=== PATIENT | male | born 1940 | race Caucasian/White ===

== ENCOUNTER 2017-11-06 17:09 | Inpatient (IN) | payer OTHER ==
[2017-11-06] MEDS ORDERED: ACETAMINOPHEN INJECTION 100 ML IVPB ONE (17:48)
[2017-11-06] MEDS ORDERED: SODIUM CHLORIDE 1,000 ML IV STA (17:48)
[2017-11-06] MEDS ORDERED: ACETAMINOPHEN 1000 MG/100 ML VIAL (NON FORMULARY) IVPB ONE (18:04)
[2017-11-06 18:16] LABS: EOS % 0.2 % (0-4.5); HEMATOCRIT 42.5 % (35.4-49); HEMOGLOBIN 14.2 GM/dL (11.7-16.9); LYMPH % 2.2 % (8-40); MCH 31.7 pg (25.7-33.7); MCHC 33.4 g/dl (32.0-35.9); MONO % 7.6 % (3.8-10.2); PLATELET COUNT 397 K/MM3 (134-434); RBC 4.47 M/mm3 (4.00-5.60); RDW 14.6 % (11.9-15.9); WHITE BLOOD COUNT 19.1 K/mm3 (4.0-10.0)
[2017-11-06 18:23] LABS: VENOUS PC02 35.9 mmHg (38-52); VENOUS PH 7.45 (7.32-7.42); VENOUS PO2 48.2 mmHg (28-48)
[2017-11-06 18:28] LABS: INR 1.03 (0.82-1.09); PROTHROMBIN TIME (PATIENT) 11.6 SEC (9.7-13.0)
[2017-11-06 18:42] LABS: ALBUMIN 3.2 g/dl (3.4-5.0); ALK PHOS 799 U/L (45-117); ANION GAP 10 (8-16); BILIRUBIN,TOTAL 5.2 mg/dL (0.2-1.0); BLOOD UREA NITROGEN 22 mg/dL (7-18); CALCIUM 10.2 mg/dL (8.5-10.1); CHLORIDE 104 mmol/L (98-107); CO2 26 mmol/L (21-32); CREATININE 1.1 mg/dL (0.7-1.3); GLUCOSE,RANDOM 188 mg/dL (74-106); SGPT/ALT 148 U/L (12-78); SODIUM 140 mmol/L (136-145); TOT PROT 6.9 g/dl (6.4-8.2)
[2017-11-06 18:50] LABS: POTASSIUM 4.2 mmol/L (3.5-5.1); SGOT/AST 221 U/L (15-37)
[2017-11-06 19:00] VITALS: BMI 37.2
--- NOTE | 2017-11-06 19:10 | PDOC ---
History of Present Illness <Lynda Pedroza - Last Filed: 11/06/17 23:21> - History of Present Illness Initial Comments: 11/06/17 19:10 77 Yo M w a hx of T2DM is here with an altered mental status. He says he does not feel well but cannot give a history of what happened or how he got to the hospital. He originally said he was at [facility]. He says this morning he fell down but did not hit his head. He denies having a headache. Denies neck pain. He denies Chest pain, denies SOB or difficulty breathing. Denies having a recent cough. Denies dysuria, frequency, urgency. Was on hold with his retirement for 45 minutes and no-one answered the phone or was able to give a supplemental history on the patient. <Ehsan Campbell - Last Filed: 11/06/17 23:25> - General Chief Complaint: SIRS, Suspected/Possible Stated Complaint: FALL/FEVER Time Seen by Provider: 11/06/17 17:51 Past History <Lynda Pedroza - Last Filed: 11/06/17 23:21> - Past Medical History COPD: Yes Diabetes: Yes GI Disorders: Yes (gerd) HTN: Yes - Suicide/Smoking/Psychosocial Hx Smoking History: Never smoked Have you smoked in the past 12 months: No Information on smoking cessation initiated: No Hx Alcohol Use: No Drug/Substance Use Hx: No <Ehsan Campbell - Last Filed: 11/06/17 23:25> - Past Medical History Allergies/Adverse Reactions: Allergies Allergy/AdvReac Type Severity Reaction Status Date / Time No Known Allergies Allergy Verified 11/06/17 17:34 Home Medications: Ambulatory Orders Acetaminophen [Pain Relief] 650 mg PO PRN PRN 11/06/17 Aspirin [Ecotrin] 81 mg PO DAILY 11/06/17 Guaifenesin Dm [Robitussin Dm -] 10 ml PO Q6H PRN 11/06/17 Lisinopril [Prinivil] 10 mg PO DAILY 11/06/17 Magnesium Hydrox 2400MG/30Ml [Milk of Magnesia -] 30 ml PO PRN 11/06/17 Pantoprazole Sodium [Protonix] 40 mg PO DAILY 11/06/17 Sodium Phosphate/Na Biphos [Fleet Adult Rectal Enema -] 133 ml RC PRN 11/06/17 metFORMIN HCL [Metformin HCl] 500 mg PO BID 11/06/17 Review of Systems - Review of Systems Comments:: 11/06/17 19:21 Constitutional: Positive: Fever, chills, diaphoresis Absent: generalized weakness, malaise, loss of appetite HEENT: Absent: rhinorrhea, nasal congestion, throat pain, throat swelling, difficulty swallowing, mouth swelling, ear pain, eye pain, visual Changes CARDIOVASCULAR: Absent: chest pain, syncope, palpitations, irregular heart rate, lightheadedness , peripheral edema RESPIRATORY: Positive: Shortness of breath Absent: cough, dyspnea with exertion, orthopnea, wheezing, stridor, hemoptysis GASTROINTESTINAL: Positive: Abdominal pain Absent:abdominal distension, nausea, vomiting, diarrhea, constipation, melena, hematochezia GENITOURINARY: Absent: dysuria, frequency, urgency, hesitancy, hematuria, flank pain, genital pain MUSCULOSKELETAL: Absent: myalgia, arthralgia, joint swelling SKIN: Absent: rash, itching, pallor HEMATOLOGIC/IMMUNOLOGIC: Absent: easy bleeding, easy bruising, lymphadenopathy, frequent infections ENDOCRINE: Absent: unexplained weight gain, unexplained weight loss, heat intolerance, cold intolerance NEUROLOGIC: Absent: headache, focal weakness or paresthesias, dizziness, unsteady gait, seizure, mental status changes, bladder or bowel incontinence PSYCHIATRIC: Absent: anxiety, depression, suicidal or homicidal ideation, hallucinations. <Ehsan Campbell - Last Filed: 11/06/17 23:25> *Physical Exam - Vital Signs Last Vital Signs Temp Pulse Resp BP Pulse Ox 103.0 F H 115 H 22 93/52 96 11/06/17 17:45 11/06/17 18:20 11/06/17 17:45 11/06/17 18:20 11/06/17 18:20 <Lynda Pedroza - Last Filed: 11/06/17 23:21> - Vital Signs Last Vital Signs Temp Pulse Resp BP Pulse Ox 103.0 F H 115 H 22 93/52 96 11/06/17 17:45 11/06/17 18:20 11/06/17 17:45 11/06/17 18:20 11/06/17 18:20 - Physical Exam Comments: 11/06/17 19:24 GENERAL: Patient looks sick. His body color looks jaundice. He is awake but not alert and not oriented well. HEENT: The sclera look mildly icteric. Normocephalic, atraumatic. PERRLA, EOMI. There is conjunctival pallor. Mucous membranes are dry. Oropharynx is clear. NECK: Supple. No JVD. Carotid pulses 2+ and symmetric, without bruits. No thyromegaly. No lymphadenopathy. CARDIOVASCULAR: Tachycardic, normal s1/s2, No murmurs, rubs, or gallops. Distal pulses are 2+ and symmetric. PULMONARY: No evidence of respiratory distress. Lungs clear to auscultation bilaterally. No wheezing, rales or rhonchi. ABDOMINAL: Mildly tender in RUQ. Negative aparicio sign. There is no rebound or guarding and no peritoneal signs. MUSCULOSKELETAL No bony deformities or tenderness. No CVA tenderness. EXTREMITIES: No cyanosis. No clubbing. No edema. No calf tenderness. SKIN: The skin is jaundice. Warm and dry. delayed capillary refill. No rashes. NEUROLOGICAL: He is awake but not alert and not appropriately answering questions. Cranial nerves 2-12 intact. No deficits to light touch in face, upper extremities and lower extremities. No motor deficits in the in face, upper extremities and lower extremities. Normoreflexic in the upper and lower extremities. Normal speech. Toes are down-going bilaterally. <Ehsan Campbell - Last Filed: 11/06/17 23:25> ED Treatment Course - LABORATORY CBC & Chemistry Diagram: 11/06/17 18:00 11/06/17 18:00 - ADDITIONAL ORDERS Additional order review: Laboratory Results 11/06/17 11/06/17 11/06/17 20:25 20:25 18:33 PT with INR INR PTT (Actin FS) VBG pH POC VBG pCO2 POC VBG pO2 Mixed VBG HCO3 Sodium Potassium Chloride Carbon Dioxide Anion Gap BUN Creatinine Creat Clearance w eGFR POC Glucometer [phone] Random Glucose Lactic Acid 1.4 Calcium Total Bilirubin AST ALT Alkaline Phosphatase Troponin I Total Protein Albumin Blood Type O POSITIVE Antibody Screen Negative 11/06/17 11/06/17 11/06/17 18:29 18:00 18:00 PT with INR INR PTT (Actin FS) VBG pH POC VBG pCO2 POC VBG pO2 Mixed VBG HCO3 Sodium 140 Potassium 4.2 Chloride 104 Carbon Dioxide 26 Anion Gap 10 BUN 22 H Creatinine 1.1 Creat Clearance w eGFR > 60 POC Glucometer Random Glucose 188 H Lactic Acid 2.1 H Calcium 10.2 H Total Bilirubin 5.2 H AST 221 H ALT 148 H Alkaline Phosphatase 799 H Troponin I < 0.02 Total Protein 6.9 Albumin 3.2 L Blood Type Antibody Screen 11/06/17 11/06/17 18:00 18:00 PT with INR 11.60 INR 1.03 PTT (Actin FS) 31.0 VBG pH 7.45 H POC VBG pCO2 35.9 L POC VBG pO2 48.2 H Mixed VBG HCO3 24.4 Sodium Potassium Chloride Carbon Dioxide Anion Gap BUN Creatinine Creat Clearance w eGFR POC Glucometer Random Glucose Lactic Acid Calcium Total Bilirubin AST ALT Alkaline Phosphatase Troponin I Total Protein Albumin Blood Type Antibody Screen 11/06/17 11/06/17 18:33 18:00 RBC 4.47 MCV 95.0 MCHC 33.4 RDW 14.6 MPV 7.0 L Neutrophils % 89.0 H Lymphocytes % 2.2 L Monocytes % 7.6 Eosinophils % 0.2 Basophils % 1.0 POC Glucometer [phone] - Medications Given in the ED: ED Medications Discontinued Medications Generic Name Dose Route Start Last Admin Trade Name Freq PRN Reason Stop Dose Admin Acetaminophen 1,000 mg 11/06/17 18:04 11/06/17 18:10 Ofirmev Injection - IVPB 11/06/17 18:05 1,000 mg ONCE ONE Administration Sodium Chloride 1,000 mls @ 1,000 mls/hr 11/06/17 17:48 11/06/17 18:03 Normal Saline - IV 11/06/17 18:47 1,000 mls/hr ASDIR STA Administration Vancomycin HCl 1,500 mg/ 500 mls @ 250 mls/hr 11/06/17 19:36 11/06/17 20:51 Dextrose IVPB 11/06/17 21:35 250 mls/hr ONCE ONE Administration Protocol Piperacillin Sod/Tazobactam 100 mls @ 200 mls/hr 11/06/17 19:38 11/06/17 20: 31 Sod 4.5 gm/ Dextrose IVPB 11/06/17 20:07 200 mls/hr ONCE ONE Administration Protocol Sodium Chloride 1,000 ml 11/06/17 19:58 11/06/17 20:31 Normal Saline - IV 11/06/17 19:59 1,000 ml ONCE ONE Administration <Lynda Perdoza - Last Filed: 11/06/17 23:21> - LABORATORY CBC & Chemistry Diagram: 11/06/17 18:00 11/06/17 18:00 - ADDITIONAL ORDERS Additional order review: Laboratory Results 11/06/17 11/06/17 11/06/17 18:33 18:00 18:00 PT with INR INR PTT (Actin FS) VBG pH POC VBG pCO2 POC VBG pO2 Mixed VBG HCO3 Sodium 140 Potassium 4.2 Chloride 104 Carbon Dioxide 26 Anion Gap 10 BUN 22 H Creatinine 1.1 Creat Clearance w eGFR > 60 POC Glucometer [phone] Random Glucose 188 H Lactic Acid 2.1 H Calcium 10.2 H Total Bilirubin 5.2 H AST 221 H ALT 148 H Alkaline Phosphatase 799 H Total Protein 6.9 Albumin 3.2 L 11/06/17 11/06/17 18:00 18:00 PT with INR 11.60 INR 1.03 PTT (Actin FS) 31.0 VBG pH 7.45 H POC VBG pCO2 35.9 L POC VBG pO2 48.2 H Mixed VBG HCO3 24.4 Sodium Potassium Chloride Carbon Dioxide Anion Gap BUN Creatinine Creat Clearance w eGFR POC Glucometer Random Glucose Lactic Acid Calcium Total Bilirubin AST ALT Alkaline Phosphatase Total Protein Albumin 11/06/17 11/06/17 18:33 18:00 RBC 4.47 MCV 95.0 MCHC 33.4 RDW 14.6 MPV 7.0 L Neutrophils % 89.0 H Lymphocytes % 2.2 L Monocytes % 7.6 Eosinophils % 0.2 Basophils % 1.0 POC Glucometer [phone] - Medications Given in the ED: ED Medications Discontinued Medications Generic Name Dose Route Start Last Admin Trade Name Freq PRN Reason Stop Dose Admin Acetaminophen 1,000 mg 11/06/17 18:04 11/06/17 18:10 Ofirmev Injection - IVPB 11/06/17 18:05 1,000 mg ONCE ONE Administration Sodium Chloride 1,000 mls @ 1,000 mls/hr 11/06/17 17:48 11/06/17 18:03 Normal Saline - IV 11/06/17 18:47 1,000 mls/hr ASDIR STA Administration <Ehsan Campbell - Last Filed: 11/06/17 23:25> Medical Decision Making - Medical Decision Making 11/06/17 19:33 77 yo M w a hx of T2DM is here in an altered state of mind. He is not giving us a helpful history of why he is here. The patient looks very jaundice on appearance. He has worrisome vitals for sepsis. Temp: 103 HR: 130 RR: 22 BP: 93/52 O2: 92 Patient has hypotension, Jaundice, altered mental status, and tachycardia. No RUQ pain on exam. Patient has 4/5 criteria for Acute cholangitis. Alk phos; 799 Alt - 221 Ast - 148 Bilirubin - 5.2 Plan: RUQ us to assess for cholangitis. Gallbladder could not be visualized on RUQ US. Patient insists he never had his gallbladder taken out. Abdomen and pelvis CT scan was taken. Patient will be admitted. He does not want an ERCP or percutaneous drainage procedure performed. He wants to try only antibiotics. Patient is doing better than he was at admission after fluid and Abx. Patient will be admitted. 11/06/17 23:24 <Ehsan Campbell - Last Filed: 11/06/17 23:25> *DC/Admit/Observation/Transfer - Discharge Dispostion Decision to Admit order: Yes <Lynda Pedroza - Last Filed: 11/06/17 23:21> <Ehsan Campbell - Last Filed: 11/06/17 23:25> Diagnosis at time of Disposition: Cholangitis, obliterative, chronic - Discharge Dispostion Condition at time of disposition: Guarded
[2017-11-06] MEDS ORDERED: VANCOMYCIN 1,500 MG in DEXTROSE 5%-WATER - 500 ML IVPB ONE (19:36)
[2017-11-06] MEDS ORDERED: PIPERACILLIN/TAZOB 4.5 GM 4.5 GM in DEXTROSE 5%-WATER 100 ML IVPB ONE (19:38)
--- NOTE | 2017-11-06 19:49 | PDOC ---
Attending Attestation - ED Attending Attestation I have performed the following: I have examined & evaluated the patient, The case was reviewed & discussed with the resident, I agree w/resident's findings & plan - HPI HPI: 11/06/17 23:49 The patient is a 77 year old male brought in by EMS from [facility], with a significant past medical history of diabetes, who presents to the emergency department for evaluation of altered mental status s/p fall. He reports falling down this morning, but denies head trauma. He states he is unsure of how he got to the hospital. Pt is hypotensive and febrile on arrival. Unable to obtain past medical history secondary to pt status. No response from fdc. Pt reports abdominal pain with associated fever and diaphoresis. The patient denies chest pain, shortness of breath, headache, and dizziness. Denies chills, nausea, vomiting, any bowel/urinary symptoms. Allergies: NKDA Social History: No reported alcohol, cigarette, or drug use - Physicial Exam PE: GENERAL: (+)Obese. Afebrile. Awake, alert, and fully oriented, in no acute distress HEAD: No signs of trauma EYES: PERRLA, EOMI, sclera anicteric, conjunctiva clear ENT: Auricles normal inspection, hearing grossly normal, nares patent, oropharynx clear without exudates. Moist mucosa NECK: Normal ROM, supple, no lymphadenopathy, JVD, or masses LUNGS: Breath sounds equal, clear to auscultation bilaterally. No wheezes, and no crackles HEART: Regular rate and rhythm, normal S1 and S2, no murmurs, rubs or gallops ABDOMEN: (+)RUQ pain. Soft, nontender, normoactive bowel sounds. No guarding, no rebound. No masses EXTREMITIES: Normal range of motion, no edema. No clubbing or cyanosis. No cords, erythema, or tenderness NEUROLOGICAL: Cranial nerves II through XII grossly intact. Normal speech, normal gait SKIN: (+)Jaundiced. Warm, Dry, normal turgor, no rashes or lesions noted. <Emelina Steven - Last Filed: 11/06/17 23:49> - Resident Resident Name: Ehsan Campbell - Medical Decision Making 11/07/17 19:33 Pt comes with abdominal pain and fever. He is jaundiced from the MA; his LFTs are all elevated. Total bili is rising from the last time that he was here. Pt will be admitted to the telemetry unit. ICU team refusing the case, as pt is stable at this time. Pt will require GI eval for cholangitis. <Lynda Pedroza - Last Filed: 11/07/17 19:36> Attestations - Attestations Documentation prepared by Emelina Steven, acting as nuclear medicine medical director for Lynda Pedroza MD. <Emelina Steven - Last Filed: 11/06/17 23:49>
[2017-11-06] MEDS ORDERED: SODIUM CHLORIDE 0.9% 500 ML INFUS.BAG IV ONE (19:58)
[2017-11-06] MEDS ORDERED: PIPERACILLIN/TAZOB 4.5 GM 4.5 GM/100 ML BAG IVPB ONE (20:06)
--- NOTE | 2017-11-06 21:21 | CON.GI ---
Consult Consult Specialty:: GI: For Dr. Hewitt Referred by:: Dr. Eliana Jha Reason for Consultation:: Fever and abnormal LFTs - History of Present Illness Chief Complaint: "I fell" History of Present Illness: 77M admitted from [facility]. The transfer form from [facility] states "Fall (Pain ) fever 100.1" as the reason for transfer to [facility] ER. In ER he was noted to be hypotensive with BP 98/65 have a rectal temp of 103, WBC of 19K, AST: 221 ALT: 148 ALP: 799 TB: 5.2. PT/INR was normal. There are no previous LFTs for review. Mr. Jay states that he simply tripped and fell. He denies abdominal pain or prior history of liver disease. He states that he is given tylenol at [facility] for knee pain He denies alcohol use. He thinks that he may have been given antibiotics at the [facility] about 3 weeks ago "because he was running a fever". There has been no reported diarrhea. He is noted to have a DNR/DNI signed in the chart from 07/28. He has received 1 dose vanco / zosyn in ER and 1 liter of NS. He is getting a 2nd liter of NS. - History Source History Provided By: Patient, Medical Record Limitations to Obtaining History: Poor Historian - Past Medical History Cardio/Vascular: Yes: HTN, Hyperlipdemia Endocrine: Yes: Diabetes Mellitus - Past Surgical History Additional Surgical History: Denies - Alcohol/Substance Use Hx Alcohol Use: No - Smoking History Smoking history: Never smoked Have you smoked in the past 12 months: No - Social History Usual Living Arrangement: Skilled Nursing ADL: Support Services Place of : [facility] History of Recent Travel: No Home Medications - Allergies Allergies/Adverse Reactions: Allergies Allergy/AdvReac Type Severity Reaction Status Date / Time No Known Allergies Allergy Verified 11/06/17 17:34 - Home Medications Home Medications: Ambulatory Orders Acetaminophen [Pain Relief] 650 mg PO PRN PRN 11/06/17 Aspirin [Ecotrin] 81 mg PO DAILY 11/06/17 Guaifenesin Dm [Robitussin Dm -] 10 ml PO Q6H PRN 11/06/17 Lisinopril [Prinivil] 10 mg PO DAILY 11/06/17 Magnesium Hydrox 2400MG/30Ml [Milk of Magnesia -] 30 ml PO PRN 11/06/17 Pantoprazole Sodium [Protonix] 40 mg PO DAILY 11/06/17 Sodium Phosphate/Na Biphos [Fleet Adult Rectal Enema -] 133 ml RC PRN 11/06/17 metFORMIN HCL [Metformin HCl] 500 mg PO BID 11/06/17 Family Disease History - Family Disease History Other Family History: Non contribuatory Review of Systems - Review of Systems Constitutional: reports: Fever (reported low grade tamp at [facility] and 103F rectal at [facility] ER) Cardiovascular: denies: Chest Pain Respiratory: denies: SOB Gastrointestinal: denies: Abdominal Pain Physical Exam-GI Vital Signs: Vital Signs Temperature 97 oral (tylenol had been administered prior to eval) 11/06/172029 Pulse Rate 130 H 11/06/172029 Respiratory Rate 20 11/06/172029 Blood Pressure 104/76 11/06/172029 O2 Sat by Pulse Oximetry (%) 96 (RA) 11/06/172029 Constitutional: Yes: Calm Eyes: No: Sclera Icterus Cardiovascular: Yes: Tachycardia. No: Murmur Respiratory: Yes: Diminished (at bases b/l) Gastrointestinal Inspection: No: Distention ...Auscultate: Yes: Normoactive Bowel Sounds ...Palpate: Yes: Soft. No: Hepatomegaly, Splenomegaly, Tenderness ...Percussion: No: Tympanitic Edema: No (No LE edema) Neurological: Yes: Alert, Oriented (x 3) Labs: CBC, BMP 11/06/17 18:00 11/06/17 18:00 INR, PTT INR 1.03 (0.82-1.09) 11/06/17 18:00 Problem List - Problems (1) Abnormal liver function test Assessment/Plan: Given the cholestatic / obstructive pattern / associated fevers, leukocytosis and hypotension, cholangitis would need to be higher in differential I would advise: NPO Continued resuscitation / IV hydration ICU admission Check hepatitis serologies Abdominal US is pending: Prelim result per the ER resident is that the gallbladder could not be visualized (patient denies having cholecystectomy) however the CBD appeared mildly dilated. Will await official read Requested the ER perform CT scan of the abdomen and pelvis without contrast IV Abx: Vanco and Zosyn was given in ER. Zosyn should be continued, ID consult I discussed my concerns with Mr. Jay regarding cholangitis and explained that cholangitis is a serious and potentially life threatening infection of the bile duct. I explained that ERCP can be performed for therapeutic and diagnostic purposes. We discussed potential risks of the procedure like but not limited to bleeding, perforation, infection, sedation medication effects, pancreatitis all of which could be potentially life threatening. He stated that he did not want this procedure. We discussed a percutaneous drainage of his biliary tract through the liver and he refused that as well. He stated that "he would take his chances with antibiotics". I did discuss the case with Dr. Ld Saunders, biliary endoscopist who will be available to perform ERCP if the patient changes his mind. I asked the ER to contact Drs. Raissa Jha / Wendy Jc to make them aware of Mr. Jay's admission and decision regarding interventions. Code(s): R94.5 - ABNORMAL RESULTS OF LIVER FUNCTION STUDIES
--- NOTE | 2017-11-06 23:28 | PN ---
Progress Note (short form) - Note Progress Note: PULM/CCM Called to see pt to evaluate for ICU admission for possible ascending cholangitis/cholecystitis. Briefly pt has been largely wheel chair bound, living in [place] for the last 3-4 years. He has no children or other family, there is no surrogate decision maker listed. Pt is alert and oriented to person, place , time and current President (" the one with [place]"). He presented today after fall, found to have elevated bili and alk phos, significant transaminitis , and leukocytosis. He was febrile earlier and hypotensive but he responded to IVF, abx and tylenol. Abd US did not visulize GB and CBD was not significantly dilated. His case was discussed with GI, who felt pt may need ERCP or perc duong. Pt had previously made himself DNR/DNI on last admission. Amando Rowe and myself separately spoke with Mr Jay regarding medical interventions and his current condition. Pt expressed clearly, and consistency that he does not want to pursue aggressive interventions. He states he is willing to try antibiotics but is unwilling to undergo further procedures or interventions should he deteriorate. Pt was consistent and made these statements without coercion or provication. It is reasonable to admit pt to medical floor given the distinct possibility he may worsen, however as he does not wish to pursue life support interventions he should not be admitted to ICU. Should he worsen overnight efforts should be made to make him comfortable. Unfortunately there is no family to see or support him but his wishes are clear and consistent. Vital Signs Temp 103.0 F H 11/06/17 17:45 Pulse 115 H 11/06/17 18:20 Resp 22 11/06/17 17:45 BP 93/52 11/06/17 18:20 Pulse Ox 96 11/06/17 18:20 Intake & Output 11/05/17 11/06/17 11/06/17 23:59 11:59 23:59 Weight 121.109 kg Other: Height 5 ft 11 in Body Mass Index (BMI) 37.2 Weight Measurement Method Est/Stated by Patient CBC, BMP 11/06/17 18:00 11/06/17 18:00 Hepatic Panel Total Bilirubin 5.2 mg/dL (0.2-1.0) H 11/06/17 18:00 AST 221 U/L (15-37) H 11/06/17 18:00 ALT 148 U/L (12-78) H 11/06/17 18:00 Alkaline Phosphatase 799 U/L (45-117) H 11/06/17 18:00 Albumin 3.2 g/dl (3.4-5.0) L 11/06/17 18:00 PE: Gen: awake, alert, slightly jaundice, INAD HENT:NCAT, EOMI, PULM: clear anterior, diminished bases ABD: sub umbilical hernia, no Rocha on palp, obese but soft EXT: w/w/p, 2+ pulses Neuro: awake alert, non focal Jimmy Valera [facility] [id number]
--- NOTE | 2017-11-07 03:30 | HP ---
CHIEF COMPLAINT: Fall PCP: Dr. Jha HISTORY OF PRESENT ILLNESS: The patient is a 77 yo f w/ PMH DM, HTN who was brought to the ED from [facility] due to fall. Per the patient, he slid to the floor off of his bed. In the ED , he was found to have a rectal temperature of 103.5 and to he hypotensive to 98 /65. Patient denies head trauma, pain or any other complaints at the time of interview. ER course was notable for: (1) AST 221, ALT 148, ALP 799 (2) Lactic acid 2.1 -> 1.4 (3) WBC 19.1 (4) CT head negative, RUQ US showing no gallbladder and dilated CBD, CTAP with similar findings. PAST MEDICAL HISTORY: see hpi PAST SURGICAL HISTORY: none Social History: Smoking: denies Alcohol: denies Drugs: denies Family History: non-contributory Allergies No Known Allergies Allergy (Verified 11/06/17 17:34) HOME MEDICATIONS: Home Medications Medication Instructions Recorded Acetaminophen [Pain Relief] 650 mg PO PRN PRN 11/06/17 Aspirin [Ecotrin] 81 mg PO DAILY 11/06/17 Guaifenesin Dm [Robitussin Dm -] 10 ml PO Q6H PRN 11/06/17 Lisinopril [Prinivil] 10 mg PO DAILY 11/06/17 Magnesium Hydrox 2400MG/30Ml [Milk 30 ml PO PRN 11/06/17 of Magnesia -] Pantoprazole Sodium [Protonix] 40 mg PO DAILY 11/06/17 Sodium Phosphate/Na Biphos [Fleet 133 ml RC PRN 11/06/17 Adult Rectal Enema -] metFORMIN HCL [Metformin HCl] 500 mg PO BID 11/06/17 REVIEW OF SYSTEMS CONSTITUTIONAL: Absent: fever, chills, diaphoresis, generalized weakness, malaise, loss of appetite, weight change HEENT: Absent: rhinorrhea, nasal congestion, throat pain, throat swelling, difficulty swallowing, mouth swelling, ear pain, eye pain, visual changes CARDIOVASCULAR: Absent: chest pain, syncope, palpitations, irregular heart rate, lightheadedness , peripheral edema RESPIRATORY: Absent: cough, shortness of breath, dyspnea with exertion, orthopnea, wheezing, stridor, hemoptysis GASTROINTESTINAL: Absent: abdominal pain, abdominal distension, nausea, vomiting, diarrhea, constipation, melena, hematochezia GENITOURINARY: Absent: dysuria, frequency, urgency, hesitancy, hematuria, flank pain, genital pain MUSCULOSKELETAL: Absent: myalgia, arthralgia, joint swelling, back pain, neck pain SKIN: Absent: rash, itching, pallor HEMATOLOGIC/IMMUNOLOGIC: Absent: easy bleeding, easy bruising, lymphadenopathy, frequent infections ENDOCRINE: Absent: unexplained weight gain, unexplained weight loss, heat intolerance, cold intolerance NEUROLOGIC: Absent: headache, focal weakness or paresthesias, dizziness, unsteady gait, seizure, mental status changes, bladder or bowel incontinence PSYCHIATRIC: Absent: anxiety, depression, suicidal or homicidal ideation, hallucinations. PHYSICAL EXAMINATION Vital Signs - 24 hr 11/06/17 11/06/17 11/07/17 17:45 18:20 01:13 Temperature 103.0 F H 98.2 F Pulse Rate 130 H Pulse Rate [ 115 H 99 H Apical] Respiratory 22 19 Rate Blood Pressure 98/65 Blood Pressure 93/52 110/76 [Left Arm] O2 Sat by Pulse 92 L 96 Oximetry (%) GENERAL: Awake, alert, and fully oriented, in no acute distress. Patient is noted to have jaundice. HEAD: Normal with no signs of trauma. EYES: Pupils equal, round and reactive to light, extraocular movements intact, sclera anicteric, conjunctiva clear. No lid lag. EARS, NOSE, THROAT: oropharynx clear without exudates. Moist mucous membranes. NECK: Normal range of motion, supple without lymphadenopathy, JVD, or masses. LUNGS: Breath sounds equal, clear to auscultation bilaterally. No wheezes, and no crackles. No accessory muscle use. HEART: Regular rate and rhythm, normal S1 and S2 without murmur, rub or gallop. ABDOMEN: Soft, not distended, normoactive bowel sounds, no guarding, no rebound , no masses. There is mild tenderness to palpation in the RUQ LOWER EXTREMITIES: 2+ pulses, warm, well-perfused. No calf tenderness. 1+ peripheral edema. NEUROLOGICAL: Cranial nerves II-X intact. Normal speech. PSYCHIATRIC: Cooperative. Good eye contact. Appropriate mood and affect. SKIN: Warm, excessively dry, normal turgor, no rashes or lesions noted, normal capillary refill. The skin is jaundiced and there are excoriations along both legs and arms. Laboratory Results - last 24 hr 11/06/17 11/06/17 11/06/17 18:00 18:00 18:00 WBC 19.1 H RBC 4.47 Hgb 14.2 Hct 42.5 MCV 95.0 MCH 31.7 MCHC 33.4 RDW 14.6 Plt Count 397 MPV 7.0 L Absolute Neuts (auto) 17.0 Neutrophils % 89.0 H Lymphocytes % 2.2 L Monocytes % 7.6 Eosinophils % 0.2 Basophils % 1.0 Nucleated RBC % 0 PT with INR 11.60 INR 1.03 PTT (Actin FS) 31.0 VBG pH 7.45 H POC VBG pCO2 35.9 L POC VBG pO2 48.2 H Mixed VBG HCO3 24.4 Sodium Potassium Chloride Carbon Dioxide Anion Gap BUN Creatinine Creat Clearance w eGFR POC Glucometer Random Glucose Lactic Acid Calcium Total Bilirubin AST ALT Alkaline Phosphatase Troponin I Total Protein Albumin Blood Type Antibody Screen 11/06/17 11/06/17 11/06/17 18:00 18:00 18:29 WBC RBC Hgb Hct MCV MCH MCHC RDW Plt Count MPV Absolute Neuts (auto) Neutrophils % Lymphocytes % Monocytes % Eosinophils % Basophils % Nucleated RBC % PT with INR INR PTT (Actin FS) VBG pH POC VBG pCO2 POC VBG pO2 Mixed VBG HCO3 Sodium 140 Potassium 4.2 Chloride 104 Carbon Dioxide 26 Anion Gap 10 BUN 22 H Creatinine 1.1 Creat Clearance w eGFR > 60 POC Glucometer Random Glucose 188 H Lactic Acid 2.1 H Calcium 10.2 H Total Bilirubin 5.2 H AST 221 H ALT 148 H Alkaline Phosphatase 799 H Troponin I < 0.02 Total Protein 6.9 Albumin 3.2 L Blood Type Antibody Screen 11/06/17 11/06/17 11/06/17 18:33 20:25 20:25 WBC RBC Hgb Hct MCV MCH MCHC RDW Plt Count MPV Absolute Neuts (auto) Neutrophils % Lymphocytes % Monocytes % Eosinophils % Basophils % Nucleated RBC % PT with INR INR PTT (Actin FS) VBG pH POC VBG pCO2 POC VBG pO2 Mixed VBG HCO3 Sodium Potassium Chloride Carbon Dioxide Anion Gap BUN Creatinine Creat Clearance w eGFR POC Glucometer [phone] Random Glucose Lactic Acid 1.4 Calcium Total Bilirubin AST ALT Alkaline Phosphatase Troponin I Total Protein Albumin Blood Type O POSITIVE Antibody Screen Negative ASSESSMENT/PLAN: The patient is a 77 yo m w/ PMH DM, HTN who was brought [facility] the ED from [facility] s/p fall found to meet criteria for severe sepsis 2/2 suspected cholangitis #Severe sepsis w/ elevated LFTs and Jaundice concerning for cholangitis -Patient found to have charcot triad w/ 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 Patient electing to decline invasive treatment at this time and do trial of ABX -ICU MEDICAL ESTHETICIAN called to assess patient for the unit. Given patient's clinical stability and DNR/DNI status, he would be better suited for floors. -Patient A&O x3 at the time of interview and deemed capable of making his own decisions. -Hepatic panel pending -pain control w/ toradol; concern for sphincteral constriction with opioids which may worsen condition -NS @ 50 #FEN -NS @ 50 -monitor lytes -DM diet #Prophylaxis -Heparin SQ 5K units TID #Dispo -admit tele -medications verified w/ NH documentation Visit type - Emergency Visit Emergency Visit: Yes ED Registration Date: 11/06/17 Care time: The patient presented to the Emergency Department on the above date and was hospitalized for further evaluation of their emergent condition. - New Patient This patient is new to me today: Yes Date on this admission: 11/07/17 - Critical Care Critical Care patient: No Hospitalist Screening - Colonoscopy Questionnaire Colonoscopy Questionnaire: Colonoscopy Questionnaire - Patient: 50 - 75 years old and never had a screening colonoscopy: Unknown History of colon or rectal polyps, or CA: Unknown History of IBD, Crohn's disease or UC: Unknown History of abdominal radiation therapy as a child: Unknown - Relative: 1 with colon or rectal CA, or polyps at age 60 or younger: Unknown Colon or rectal CA diagnosed at age 45 or younger: Unknown Multiple relatives with colon or rectal CA: Unknown - Outcome: Screening Result: Negative Screen
[2017-11-07] MEDS ORDERED: guaiFENesin/D-METHORPHAN HB 10 ML UNIT-DOSE CUPS PO PRN (03:44)
[2017-11-07] MEDS ORDERED: KETOROLAC TROMETHAMINE 15 MG/ML VIAL IVPUSH PRN (03:44)
[2017-11-07] MEDS ORDERED: SODIUM PHOSPHATE/NA BIPHOS 133 ML ENEMA RC PRN (03:45)
[2017-11-07] MEDS ORDERED: SODIUM CHLORIDE 1,000 ML IV SCH (03:45)
[2017-11-07] MEDS ORDERED: PIPERACILLIN/TAZOB 3.375 GM 3.375 GM/50 ML BAG IVPB ONE (04:01)
[2017-11-07] MEDS: PIPERACILLIN/TAZOB 3.375 GM 3.375 GM in DEXTROSE 5%-WATER - 50 ML IVPB SCH (04:12)
[2017-11-07 04:26] LABS: URINE APPEARANCE SLCLOUDY; URINE COLOR AMBER; URINE GLUCOSE (UA) NEGATIVE (NEGATIVE); URINE KETONE NEGATIVE (NEGATIVE); URINE NITRITE NEGATIVE (NEGATIVE); URINE PROTEIN NEGATIVE (NEGATIVE); URINE UROBILINOGEN 4.0 E.U/dl mg/dL (0.2-1.0)
[2017-11-07] MEDS ORDERED: PIPERACILLIN/TAZOB 3.375 GM 3.375 GM in DEXTROSE 5%-WATER - 50 ML IVPB SCH ×2 (04:30→09:00)
[2017-11-07 04:40] LABS: URINE LEUK ESTERASE 2+ (NEGATIVE)
[2017-11-07 04:42] LABS: EPI CELLS RARE /HPF (FEW); URINE MUCUS RARE
--- NOTE | 2017-11-07 05:31 | PN ---
Teaching Attending Note Name of Resident: Mitch Ryder ATTENDING PHYSICIAN STATEMENT I saw and evaluated the patient. Chart, data, imaging reviewed. I reviewed the resident's note and discussed the case with the resident. I agree with the resident's findings and plan as documented. SUBJECTIVE: 77 man admitted from [facility] because he tripped and fell and was also noted to have a fever. He was noted to have markedly elevated Tbili ad transmintis as well as tachycardia and high fever of 103F in ER. U/S showed CBD dilatation of 8.5mm. Patient received vancomycin and zosyn in ER. He state that he does not want any invasive procedures performed. He wants to be DNR/DNI. OBJECTIVE: Last Vital Signs Temp Pulse Resp BP Pulse Ox 98.2 F 99 H 19 110/76 96 11/07/17 01:13 11/07/17 01:13 11/07/17 01:13 11/07/17 01:13 11/06/17 18:20 General -aaox3l, morbidly obese heent-at, nc, moist oral mucosa neck supple cv-s1+s2+rrr chest cta b/l abdomen obese, bs decreased, soft, no tenderness on palpation ext- no pedal edema Abnormal Lab Results 11/06/17 11/06/17 11/06/17 18:00 18:00 18:00 WBC 19.1 H MPV 7.0 L Neutrophils % 89.0 H Lymphocytes % 2.2 L VBG pH 7.45 H POC VBG pCO2 35.9 L POC VBG pO2 48.2 H BUN 22 H Random Glucose 188 H Lactic Acid Calcium 10.2 H Total Bilirubin 5.2 H AST 221 H ALT 148 H Alkaline Phosphatase 799 H Albumin 3.2 L Urine Blood Ur Leukocyte Esterase 11/06/17 11/07/17 18:00 04:21 WBC MPV Neutrophils % Lymphocytes % VBG pH POC VBG pCO2 POC VBG pO2 BUN Random Glucose Lactic Acid 2.1 H Calcium Total Bilirubin AST ALT Alkaline Phosphatase Albumin Urine Blood 1+ H Ur Leukocyte Esterase 2+ H head ct -neg for acute bleed, fracture CT of abdomen/pelvis reviewed U/S of abdomen reviewed ASSESSMENT AND PLAN: Severe Sepsis secondary to ascending cholangitis with dilatation of common bile duct which suggests that as possible source of infection. Pt already seen by GI however he does not want ERCP. He does agree to IV antibiotics -admit to med/surg -c/w zosyn 3.375g iv q6hrs -ID evaluation -no need for vancomycin at this time -GI f/u -blood cultures x2 -IV fluid hydration -repeat lactate as was mildly elevated -DNR/DNI and no invasive procedures as per patient's wishes -please see resident note for details -heparin sc for dvt ppx
[2017-11-07] MEDS ORDERED: HEPARIN NA (PORCINE) 5,000 UNITS/ML 1ML VIAL ONE (06:33)
[2017-11-07] MEDS: INSULIN SLIDING SCALE (NOVOLOG) 1 VIAL SQ SCH ×4 (06:51→22:27)
[2017-11-07] MEDS: HEPARIN NA (PORCINE) 5,000 UNITS/ML 1ML VIAL SQ SCH ×3 (06:51→21:19)
[2017-11-07 07:15] LABS: BASO % 0.3 % (0-2.0); EOS % 0.5 % (0-4.5); HEMATOCRIT 38.5 % (35.4-49); HEMOGLOBIN 13.1 GM/dL (11.7-16.9); LYMPH % 12.7 % (8-40); MCH 32.5 pg (25.7-33.7); MCHC 34.1 g/dl (32.0-35.9); MEAN CELL VOLUME 95.2 fl (80-96); MEAN PLT VOLUME 6.7 fl (7.5-11.1); NEUT % 77.5 % (42.8-82.8); PLATELET COUNT 348 K/MM3 (134-434); RBC 4.04 M/mm3 (4.00-5.60); RDW 15.1 % (11.9-15.9); WHITE BLOOD COUNT 15.6 K/mm3 (4.0-10.0)
[2017-11-07 07:37] LABS: ANION GAP 10 (8-16); BILIRUBIN,DIRECT 4.8 mg/dL (0.0-0.2); BILIRUBIN,TOTAL 6.1 mg/dL (0.2-1.0); BLOOD UREA NITROGEN 17 mg/dL (7-18); CALCIUM 9.9 mg/dL (8.5-10.1); CHLORIDE 106 mmol/L (98-107); CO2 26 mmol/L (21-32); GLUCOSE,RANDOM 131 mg/dL (74-106); POTASSIUM 4.1 mmol/L (3.5-5.1); SGOT/AST 181 U/L (15-37); SGPT/ALT 139 U/L (12-78); SODIUM 142 mmol/L (136-145); TOT PROT 6.5 g/dl (6.4-8.2)
[2017-11-07 07:40] LABS: ALK PHOS 656 U/L (45-117)
[2017-11-07] MEDS ORDERED: PIPERACILLIN/TAZOBACTAM 3.375 GM VIAL IVPB ONE (09:14)
[2017-11-07] MEDS ORDERED: DEXTROSE 5%-WATER - 50 ML IVPB ONE (09:14)
--- NOTE | 2017-11-07 10:00 | PN ---
Progress Note (short form) - Note Progress Note: ID consult dictated imp/reccd 77 year old man PMH of copd, DM sent to ED yesterday s/p fall with low grade fever found to have abnl lfts, possible cbd dilatiation on ultrasound , fever 103, leukocytosis seen by GI in the ER patient refused ERCP antibiotics started for possible cholangitis this am denies abdominal pain denies vomiting or nausea wants to return to the NH fever/leukocytosis/abnl lfts c/w cholangitis refusing ERCP- would continue zosyn and f/u cultures Problem List - Problems (1) Cholangitis Code(s): K83.0 - CHOLANGITIS (2) Abnormal liver function test Code(s): R94.5 - ABNORMAL RESULTS OF LIVER FUNCTION STUDIES
[2017-11-07] MEDS: LISINOPRIL 10 MG TABLET (FP) PO SCH (10:15)
[2017-11-07] MEDS: PANTOPRAZOLE 40 MG TABLET (FP) PO SCH (10:16)
--- NOTE | 2017-11-07 10:54 | CONS ---
DATE OF CONSULTATION: DATE OF DICTATION: 11/07/2017 REQUESTED BY: Dr. Cruz This is a 77-year-old man. He is a resident of the [facility], where he says he has been for the last 3-1/2 years. He presented to the emergency room yesterday. He apparently had had a fall and a low-grade fever at the [facility]. He was noted to have a temperature of 103 and to be hypotensive in the emergency room with a white count of 19,000 and abnormal LFTs with a bilirubin as high as 5.2. He was seen in the ER by GI. He had an ultrasound done that showed common bile duct which may be slightly dilated. He was offered ERCP in the ER, which he refused, and he was resuscitated with fluids and IV antibiotics. He received vancomycin and Zosyn and I am asked to see him for further evaluation. He is currently awake and alert. He complains of low back pain, which he states is chronic. He denies nausea, he denies vomiting, he denies abdominal pain, he denies alcohol use. He has been at the [facility] for 3-1/2 years; it is unclear why. He is a poor historian. PAST MEDICAL HISTORY: Notable for COPD. This is per the [facility] papers. He has a history of hypertension, GERD, type 2 diabetes. He has a DNR/DNI. He has no known drug allergies. MEDICATIONS AT THE [facility]: Pantoprazole; lisinopril; metformin; aspirin; and Tylenol p.r.n. He denies any surgical history. SOCIAL HISTORY: There is no history of any cigarette or substance use. REVIEW OF SYSTEMS: Notable for the chronic back pain. He denies any fevers or chills. Per the [facility] chart, it appears that he has had weight loss, which he currently denies. PHYSICAL EXAMINATION: Vital Signs: His temperature now is 99.8, temperature maximum was 103 on admission, blood pressure is 124/64, pulse is 94, respiratory rate is 18. He weighs 121 kg. HEENT: He is normocephalic. His eyes are mildly icteric. Neck: Supple. Heart: Regular rate and rhythm. Lungs: Clear to auscultation. Abdomen: He insists on laying his right side due to his back pain; hence, abdominal examination is limited, but grossly, he has no abdominal pain. He has a very large abdomen and it is impossible to palpate any organs. Extremities: Without edema. LABORATORIES: Admission white count was 19.1; this morning, is 15.6. INR is 1. BUN and creatinine are normal. Bilirubin is 6 with AST 181, ALT of 139, and alkaline phosphatase of 565. Urinalysis is 2+ leukocyte esterase with 160 white cells. Hepatitis serology is pending and cultures are pending. SUMMARY: This is a 77-year-old male with presumptive cholangitis, who is refusing any interventions. Would continue him on piperacillin, tazobactam, as ordered. Would follow up LFTs and follow up cultures. Hopefully he will reconsider and permit further testing. RINA LOCO M.D. [id number]
--- NOTE | 2017-11-07 11:03 | PN ---
Progress Note, Physician Chief Complaint: denies any pain, he refuses any intervention, I spoke with title insurance examiner - Current Medication List Current Medications: Active Medications Guaifenesin (Robitussin Dm -) 10 ml PO Q6H PRN PRN Reason: COUGH Heparin Sodium (Porcine) (Heparin -) 5,000 unit SQ TID [facility] Last Admin: 11/07/17 06:51 Dose: 5,000 unit Sodium Chloride (Normal Saline -) 1,000 mls @ 50 mls/hr IV ASDIR MICHAEL Stop: 11/07/17 23:44 Last Admin: 11/07/17 04:11 Dose: 50 mls/hr Piperacillin Sod/Tazobactam (Sod 4.5 gm/ Dextrose) 100 mls @ 200 mls/hr IVPB Q8H-IV MICHAEL; Protocol Insulin Aspart (Novolog Vial Sliding Scale -) 1 vial SQ ACHS [facility]; Protocol Last Admin: 11/07/17 06:51 Dose: Not Given Ketorolac Tromethamine (Toradol Injection -) 15 mg IVPUSH Q6H PRN PRN Reason: PAIN LEVEL 6-10 Stop: 11/12/17 03:43 Lisinopril (Prinivil) 10 mg PO DAILY [facility] Last Admin: 11/07/17 10:15 Dose: 10 mg Pantoprazole Sodium (Protonix -) 40 mg PO DAILY [facility] Last Admin: 11/07/17 10:16 Dose: 40 mg Sodium Phosphate (Fleet Adult Rectal Enema -) 133 ml RC DAILY PRN PRN Reason: CONSTIPATION - Objective Vital Signs: Vital Signs Temperature 99.8 F H 11/07/17 08:47 Pulse Rate 94 H 11/07/17 08:47 Respiratory Rate 18 11/07/17 08:47 Blood Pressure 124/64 11/07/17 08:47 O2 Sat by Pulse Oximetry (%) 98 11/07/17 08:47 Constitutional: Yes: No Distress, Calm Eyes: Yes: Sclera Icterus Cardiovascular: Yes: Regular Rate and Rhythm Respiratory: Yes: CTA Bilaterally Gastrointestinal: Yes: Normal Bowel Sounds, Soft, Abdomen, Obese, Tenderness ( right upper quadrant) Edema: No Labs: CBC, BMP 11/07/17 06:42 11/07/17 06:00 INR, PTT INR 1.03 (0.82-1.09) 07/28/18 18:00 Problem List - Problems (1) Abnormal liver function test Code(s): R94.5 - ABNORMAL RESULTS OF LIVER FUNCTION STUDIES (2) Cholangitis Code(s): K83.0 - CHOLANGITIS (3) Diabetes 1.5, 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 Clear liquid diet
--- NOTE | 2017-11-07 11:17 | PN ---
GI Progress Note Subjective: No acute events Patient awake, NAD - Objective Vital Signs: Vital Signs Temperature 99.8 F H 11/07/17 08:47 Pulse Rate 94 H 11/07/17 08:47 Respiratory Rate 18 11/07/17 08:47 Blood Pressure 124/64 11/07/17 08:47 O2 Sat by Pulse Oximetry (%) 98 11/07/17 08:47 Constitutional: Calm Eyes: No: Sclera Icterus Cardiovascular: Yes: Regular Rate and Rhythm Respiratory: Yes: CTA Bilaterally Gastrointestinal Inspection: Yes: Hernia (periumbilical, non-tender). No: Distention ...Auscultate: Yes: Normoactive Bowel Sounds ...Palpate: No: Tenderness ...Percussion: No: Tympanitic Edema: No (No LE edema) Neurological: Yes: Alert Labs: CBC, BMP 11/07/17 06:42 11/07/17 06:00 INR, PTT INR 1.03 (0.82-1.09) 11/06/17 18:00 Hepatic Panel Total Bilirubin 6.1 mg/dL (0.2-1.0) H 11/07/17 06:00 Direct Bilirubin 4.8 mg/dL (0.0-0.2) H 11/07/17 06:00 AST 181 U/L (15-37) H 11/07/17 06:00 ALT 139 U/L (12-78) H 11/07/17 06:00 Alkaline Phosphatase 656 U/L (45-117) H D 11/07/17 06:00 Albumin 3.0 g/dl (3.4-5.0) L 11/07/17 06:00 - ....Imaging Cat Scan: Other (Report Pending) Ultrasound: Report Reviewed (Abd US: 9.5mm CBD, GB not vsualized) Problem List - Problems (1) Abnormal liver function test Assessment/Plan: Suspected cholangitis: I again discussed the possibility of ERCP with Mr. Jay. He explained that " his feeling regarding that still stands". He wants no interventions. I discussed Mr. Jay's wishes with Dr. Hosea Garces for IV Abx Goals of care will need to be clarified Code(s): R94.5 - ABNORMAL RESULTS OF LIVER FUNCTION STUDIES
[2017-11-07] MEDS ORDERED: PIPERACILLIN/TAZOBACTAM 4.5 GM VIAL IVPB ONE (16:45)
[2017-11-07] MEDS ORDERED: DEXTROSE 5%-WATER 100 ML IVPB ONE (16:45)
[2017-11-07] MEDS: PIPERACILLIN/TAZOB 4.5 GM 4.5 GM in DEXTROSE 5%-WATER 100 ML IVPB SCH (17:07)
[2017-11-08] MEDS ORDERED: PIPERACILLIN/TAZOBACTAM 4.5 GM VIAL IVPB ONE ×2 (01:50→17:28)
[2017-11-08] MEDS ORDERED: DEXTROSE 5%-WATER 100 ML IVPB ONE ×2 (01:51→17:28)
[2017-11-08] MEDS: PIPERACILLIN/TAZOB 4.5 GM 4.5 GM in DEXTROSE 5%-WATER 100 ML IVPB SCH ×3 (02:00→18:01)
[2017-11-08] MEDS: INSULIN SLIDING SCALE (NOVOLOG) 1 VIAL SQ SCH ×5 (06:11→21:55)
[2017-11-08] MEDS: HEPARIN NA (PORCINE) 5,000 UNITS/ML 1ML VIAL SQ SCH ×3 (06:19→21:54)
[2017-11-08] MEDS: LISINOPRIL 10 MG TABLET (FP) PO SCH (09:00)
[2017-11-08] MEDS: PANTOPRAZOLE 40 MG TABLET (FP) PO SCH (09:00)
--- NOTE | 2017-11-08 10:28 | EKG ---
Test Reason : Blood Pressure : / mmHG Vent. Rate : 128 BPM Atrial Rate : 128 BPM P-R Int : 152 ms QRS Dur : 086 ms QT Int : 298 ms P-R-T Axes : 000 -11 039 degrees QTc Int : 435 ms SINUS TACHYCARDIA OTHERWISE NORMAL ECG NO PREVIOUS ECGS AVAILABLE Confirmed by ANTONIO VIZCARRA MD ([id number]) on 11/08/2017 10:27:47 AM Referred By: Confirmed By:ANTONIO VIZCARRA MD
[2017-11-08 10:32] LABS: BASO % 1.5 % (0-2.0); EOS % 3.2 % (0-4.5); HEMATOCRIT 35.9 % (35.4-49); HEMOGLOBIN 12.1 GM/dL (11.7-16.9); LYMPH % 15.1 % (8-40); MCH 32.1 pg (25.7-33.7); MCHC 33.8 g/dl (32.0-35.9); MEAN PLT VOLUME 6.8 fl (7.5-11.1); NEUT % 69.2 % (42.8-82.8); PLATELET COUNT 332 K/MM3 (134-434); RBC 3.77 M/mm3 (4.00-5.60); RDW 14.9 % (11.9-15.9); WHITE BLOOD COUNT 8.3 K/mm3 (4.0-10.0)
[2017-11-08 10:47] LABS: ALBUMIN 2.7 g/dl (3.4-5.0); ANION GAP 4 (8-16); BLOOD UREA NITROGEN 10 mg/dL (7-18); CALCIUM 9.5 mg/dL (8.5-10.1); CHLORIDE 105 mmol/L (98-107); CO2 31 mmol/L (21-32); GLUCOSE,RANDOM 147 mg/dL (74-106); POTASSIUM 4.3 mmol/L (3.5-5.1); SODIUM 140 mmol/L (136-145)
[2017-11-08 10:52] LABS: ALK PHOS 498 U/L (45-117); BILIRUBIN,DIRECT 4.4 mg/dL (0.0-0.2); BILIRUBIN,TOTAL 5.1 mg/dL (0.2-1.0); CREATININE 0.9 mg/dL (0.7-1.3); SGOT/AST 121 U/L (15-37); SGPT/ALT 105 U/L (12-78); TOT PROT 5.9 g/dl (6.4-8.2)
--- NOTE | 2017-11-08 11:58 | PN ---
Progress Note (short form) - Note Progress Note: pt seen/ examined chart reviewed comfortable refuses any intervention Discussed with Dr. Saunders also. denies pain Lfts improving. Vital Signs Temp 98.3 F 11/08/17 09:00 Pulse 88 11/08/17 09:00 Resp 20 11/08/17 09:00 BP 159/79 11/08/17 09:00 Pulse Ox 98 11/08/17 09:00 Intake & Output 11/07/17 11/07/17 11/08/17 11:59 23:59 11:59 Intake Total 240 100 Output Total 1600 600 Balance -1360 -500 Weight 267 lb Intake: IVPB 100 Oral 240 Output: Urine 1600 600 Void 1600 600 Other: Voiding Method Urinal Toilet Toilet Bowel Movement No Height 5 ft 11 in Body Mass Index (BMI) 37.2 Weight Measurement Method Stated by Patient Active Medications Guaifenesin (Robitussin Dm -) 10 ml PO Q6H PRN PRN Reason: COUGH Heparin Sodium (Porcine) (Heparin -) 5,000 unit SQ TID [facility] Last Admin: 11/08/17 06:19 Dose: 5,000 unit Piperacillin Sod/Tazobactam (Sod 4.5 gm/ Dextrose) 100 mls @ 200 mls/hr IVPB Q8H-IV MICAHEL; Protocol Last Admin: 11/08/17 09:00 Dose: 200 mls/hr Insulin Aspart (Novolog Vial Sliding Scale -) 1 vial SQ ACHS [facility]; Protocol Last Admin: 11/08/17 11:27 Dose: Not Given Ketorolac Tromethamine (Toradol Injection -) 15 mg IVPUSH Q6H PRN PRN Reason: PAIN LEVEL 6-10 Stop: 11/12/17 03:43 Lisinopril (Prinivil) 10 mg PO DAILY [facility] Last Admin: 11/08/17 09:00 Dose: 10 mg Pantoprazole Sodium (Protonix -) 40 mg PO DAILY [facility] Last Admin: 11/08/17 09:00 Dose: 40 mg Sodium Phosphate (Fleet Adult Rectal Enema -) 133 ml RC DAILY PRN PRN Reason: CONSTIPATION CBC, BMP 11/08/17 10:16 11/08/17 10:16 Microbiology 11/07/17 04:21 Urine Culture - Final Urine - Urine Clean Catch Contaminated: Please Repeat 11/06/17 18:00 Blood Culture - Preliminary Blood - Peripheral Venous Lactose Fermenting Neg Bacilli 11/06/17 18:00 Blood Culture - Preliminary Blood - Peripheral Venous NO GROWTH OBTAINED AFTER 24 HOURS, INCUBATION TO CONTINUE FOR 4 DAYS. Physical Exam. Constitutional: Yes: No Distress, Calm. 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
--- NOTE | 2017-11-08 12:41 | PN ---
GI Progress Note Subjective: GI NOte: Dr. Rowe's coverage is greatly appreciated. Kane denies abdominal pain or chills. He is icteric and itchy but LFTs are slightly improved. I discussed the potential etiologies of his jaundice including stones vs a pancreatic or biliary tract cancer and the role for ERCP in extracting stones or placing a palliative stent. He expressed his concerns about the risks of the procedure including pancreatitis which I acknowledged. I have told him that I will discuss the situation further with him once the MRCP is completed. He admits to having a diminished appetite and a drop in weight from over 300lbs to 260. I discussed the case with Dr Eliana Jha - Objective Vital Signs: Vital Signs Temperature 98.3 F 11/08/17 09:00 Pulse Rate 88 11/08/17 09:00 Respiratory Rate 20 11/08/17 09:00 Blood Pressure 159/79 11/08/17 09:00 O2 Sat by Pulse Oximetry (%) 98 11/08/17 09:00 Laboratory Tests 11/06/17 11/06/17 11/07/17 18:00 18:00 06:00 WBC 19.1 H Total Bilirubin 5.2 H 6.1 H Direct Bilirubin AST ALT Alkaline Phosphatase 799 H 656 H D 11/07/17 11/08/17 11/08/17 06:42 10:16 10:16 WBC 15.6 H 8.3 Total Bilirubin 5.1 H Direct Bilirubin 4.4 H AST 121 H D ALT 105 H D Alkaline Phosphatase 498 H D Constitutional: Calm Eyes: Yes: Sclera Icterus ...Auscultate: Yes: Normoactive Bowel Sounds ...Palpate: Yes: Soft, Other (nontender) Labs: CBC, BMP 11/08/17 10:16 11/08/17 10:16 INR, PTT INR 1.03 (0.82-1.09) 11/06/17 18:00 Problem List - Problems (1) Obstructive jaundice Assessment/Plan: Suspect malignant obstruction given the lack of pain and weight loss although the cholangitis favors stones. Await MRCP. Continue antibiotics. 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
--- NOTE | 2017-11-08 16:06 | PN ---
Progress Note (short form) - Note Progress Note: no abdominal pain Vital Signs Period Temp Pulse Resp BP Sys/Dale Pulse Ox Last 24 Hr 97.6 F-98.6 F 74-95 18-20 115-159/67-80 98-98 cor-rrr lungs clear abd soft,nt ext trace edema CBC, BMP 11/08/17 10:16 11/08/17 10:16 Microbiology 11/07/17 04:21 Urine - Urine Clean Catch Urine Culture - Final Contaminated: Please Repeat 11/06/17 18:00 Blood - Peripheral Venous Blood Culture - Preliminary Lactose Fermenting Neg Bacilli 11/06/17 18:00 Blood - Peripheral Venous Blood Culture - Preliminary NO GROWTH OBTAINED AFTER 24 HOURS, INCUBATION TO CONTINUE FOR 4 DAYS. Current Medications Guaifenesin (Robitussin Dm -) 10 ml PO Q6H PRN PRN Reason: COUGH Heparin Sodium (Porcine) (Heparin -) 5,000 unit SQ TID MICHAEL Last Admin: 11/08/17 13:56 Dose: Not Given Piperacillin Sod/Tazobactam (Sod 4.5 gm/ Dextrose) 100 mls @ 200 mls/hr IVPB Q8H-IV MICHAEL; Protocol Last Admin: 11/08/17 09:00 Dose: 200 mls/hr Insulin Aspart (Novolog Vial Sliding Scale -) 1 vial SQ ACHS MICHAEL; Protocol Last Admin: 11/08/17 11:27 Dose: Not Given Ketorolac Tromethamine (Toradol Injection -) 15 mg IVPUSH Q6H PRN PRN Reason: PAIN LEVEL 6-10 Stop: 11/12/17 03:43 Lisinopril (Prinivil) 10 mg PO DAILY MICHAEL Last Admin: 11/08/17 09:00 Dose: 10 mg Pantoprazole Sodium (Protonix -) 40 mg PO DAILY MICHAEL Last Admin: 11/08/17 09:00 Dose: 40 mg Sodium Phosphate (Fleet Adult Rectal Enema -) 133 ml RC DAILY PRN PRN Reason: CONSTIPATION a/p fever/leukocytosis/abnl lfts gram negative bacteremia c/w cholangitis agreeable to MRCP would continue zosyn and f/u cultures ?malignancy- +weight loss Problem List - Problems (1) Cholangitis Code(s): K83.0 - CHOLANGITIS (2) Abnormal liver function test Code(s): R94.5 - ABNORMAL RESULTS OF LIVER FUNCTION STUDIES
[2017-11-09] MEDS ORDERED: DEXTROSE 5%-WATER 100 ML IVPB ONE ×3 (01:15→18:14)
[2017-11-09] MEDS ORDERED: PIPERACILLIN/TAZOBACTAM 4.5 GM VIAL IVPB ONE ×2 (01:15→10:19)
[2017-11-09] MEDS: PIPERACILLIN/TAZOB 4.5 GM 4.5 GM in DEXTROSE 5%-WATER 100 ML IVPB SCH ×2 (01:27→10:25)
[2017-11-09] MEDS: INSULIN SLIDING SCALE (NOVOLOG) 1 VIAL SQ SCH ×4 (06:59→22:53)
[2017-11-09] MEDS: HEPARIN NA (PORCINE) 5,000 UNITS/ML 1ML VIAL SQ SCH ×3 (07:00→22:55)
[2017-11-09 07:04] LABS: EOS % 3.6 % (0-4.5); HEMATOCRIT 34.8 % (35.4-49); HEMOGLOBIN 11.9 GM/dL (11.7-16.9); LYMPH % 20.7 % (8-40); MCH 32.3 pg (25.7-33.7); MCHC 34.1 g/dl (32.0-35.9); MEAN CELL VOLUME 94.9 fl (80-96); MEAN PLT VOLUME 6.7 fl (7.5-11.1); MONO % 10.7 % (3.8-10.2); PLATELET COUNT 310 K/MM3 (134-434); RBC 3.67 M/mm3 (4.00-5.60); RDW 14.8 % (11.9-15.9); WHITE BLOOD COUNT 7.8 K/mm3 (4.0-10.0)
[2017-11-09 07:14] LABS: INR 1.01 (0.83-1.09); PROTHROMBIN TIME (PATIENT) 11.4 SEC (9.7-13.0)
[2017-11-09 07:15] LABS: AMYLASE 38 U/L (25-115); LIPASE 137 U/L (73-393)
[2017-11-09 07:19] LABS: ALBUMIN 2.6 g/dl (3.4-5.0); ANION GAP 9 (8-16); BLOOD UREA NITROGEN 10 mg/dL (7-18); CALCIUM 9.5 mg/dL (8.5-10.1); CHLORIDE 106 mmol/L (98-107); CO2 28 mmol/L (21-32); GLUCOSE,RANDOM 129 mg/dL (74-106); POTASSIUM 3.8 mmol/L (3.5-5.1); SODIUM 143 mmol/L (136-145)
[2017-11-09 07:22] LABS: ALK PHOS 506 U/L (45-117); BILIRUBIN,TOTAL 5.4 mg/dL (0.2-1.0); CREATININE 0.8 mg/dL (0.7-1.3); SGOT/AST 150 U/L (15-37); SGPT/ALT 108 U/L (12-78); TOT PROT 5.7 g/dl (6.4-8.2)
[2017-11-09] MEDS: LISINOPRIL 10 MG TABLET (FP) PO SCH (10:25)
[2017-11-09] MEDS: PANTOPRAZOLE 40 MG TABLET (FP) PO SCH (10:25)
[2017-11-09] MEDS ORDERED: INSULIN (NOVOLOG) ASPART 100 UNITS/ML 10ML VIAL ONE (11:37)
--- NOTE | 2017-11-09 12:40 | PN ---
Progress Note (short form) - Note Progress Note: - Note Progress Note: pt seen/ examined now refusing MRCP comfortable refuses any intervention denies pain Lfts about the same Vital Signs - 24 hr 11/08/17 11/08/17 11/09/17 22:00 23:25 02:00 Temperature 96.8 F L 98.2 F Pulse Rate 76 81 Respiratory 20 20 Rate Blood Pressure 138/70 107/52 O2 Sat by Pulse 97 Oximetry (%) 11/09/17 11/09/17 11/09/17 03:00 06:27 10:00 Temperature 97.9 F 98.5 F 98.2 F Pulse Rate 71 79 90 Respiratory 19 19 20 Rate Blood Pressure 130/68 121/71 118/68 O2 Sat by Pulse Oximetry (%) Current Medications Generic Name Dose Route Start Last Admin Trade Name Freq PRN Reason Stop Dose Admin Guaifenesin 10 ml 11/07/17 03:44 Robitussin Dm - PO Q6H PRN COUGH Heparin Sodium (Porcine) 5,000 unit 11/07/17 06:00 11/09/17 07:00 Heparin - SQ 5,000 unit TID MICHAEL Administration Piperacillin Sod/Tazobactam 100 mls @ 200 mls/hr 11/07/17 18:00 11/09/17 10: 25 Sod 4.5 gm/ Dextrose IVPB 200 mls/hr Q8H-IV MICHAEL Administration Protocol Insulin Aspart 1 vial 11/07/17 07:00 11/09/17 11:44 Novolog Vial Sliding Scale - SQ 2 units ACHS MICHAEL Administration Protocol Ketorolac Tromethamine 15 mg 11/07/17 03:44 Toradol Injection - IVPUSH 11/12/17 03:43 Q6H PRN PAIN LEVEL 6-10 Lisinopril 10 mg 11/07/17 10:00 11/09/17 10:25 Prinivil PO 10 mg DAILY MICHAEL Administration Pantoprazole Sodium 40 mg 11/07/17 10:00 11/09/17 10:25 Protonix - PO 40 mg DAILY MICHAEL Administration Sodium Phosphate 133 ml 11/07/17 03:45 Fleet Adult Rectal Enema - RC DAILY PRN CONSTIPATION Laboratory Results - last 24 hr 11/07/17 11/08/17 11/08/17 06:42 16:50 21:53 WBC RBC Hgb Hct MCV MCH MCHC RDW Plt Count MPV Absolute Neuts (auto) Neutrophils % Lymphocytes % Monocytes % Eosinophils % Basophils % Nucleated RBC % PT with INR INR Sodium Potassium Chloride Carbon Dioxide Anion Gap BUN Creatinine Creat Clearance w eGFR POC Glucometer 164 149 Random Glucose Calcium Total Bilirubin Direct Bilirubin AST ALT Alkaline Phosphatase C-Reactive Protein Total Protein Albumin Total Amylase Lipase Hep C Ab Diagnostic 0.6 Liver Fibrosis Interp 11/09/17 11/09/17 11/09/17 05:52 06:00 06:00 WBC 7.8 RBC 3.67 L Hgb 11.9 Hct 34.8 L MCV 94.9 MCH 32.3 MCHC 34.1 RDW 14.8 Plt Count 310 MPV 6.7 L Absolute Neuts (auto) 5.0 Neutrophils % 64.0 Lymphocytes % 20.7 D Monocytes % 10.7 H Eosinophils % 3.6 Basophils % 1.0 Nucleated RBC % 0 PT with INR INR Sodium 143 Potassium 3.8 Chloride 106 Carbon Dioxide 28 Anion Gap 9 BUN 10 Creatinine 0.8 Creat Clearance w eGFR > 60 POC Glucometer 132 Random Glucose 129 H Calcium 9.5 Total Bilirubin 5.4 H Direct Bilirubin AST 150 H D ALT 108 H Alkaline Phosphatase 506 H C-Reactive Protein Total Protein 5.7 L Albumin 2.6 L Total Amylase Lipase Hep C Ab Diagnostic Liver Fibrosis Interp 11/09/17 11/09/17 11/09/17 06:00 06:00 06:00 WBC RBC Hgb Hct MCV MCH MCHC RDW Plt Count MPV Absolute Neuts (auto) Neutrophils % Lymphocytes % Monocytes % Eosinophils % Basophils % Nucleated RBC % PT with INR 11.40 INR 1.01 Sodium Potassium Chloride Carbon Dioxide Anion Gap BUN Creatinine Creat Clearance w eGFR POC Glucometer Random Glucose Calcium Total Bilirubin Direct Bilirubin AST ALT Alkaline Phosphatase C-Reactive Protein 7.7 H Total Protein Albumin Total Amylase 38 Lipase 137 Hep C Ab Diagnostic Liver Fibrosis Interp 11/09/17 11/09/17 06:00 11:33 WBC RBC Hgb Hct MCV MCH MCHC RDW Plt Count MPV Absolute Neuts (auto) Neutrophils % Lymphocytes % Monocytes % Eosinophils % Basophils % Nucleated RBC % PT with INR INR Sodium Potassium Chloride Carbon Dioxide Anion Gap BUN Creatinine Creat Clearance w eGFR POC Glucometer 181 Random Glucose Calcium Total Bilirubin Direct Bilirubin 4.7 H AST ALT Alkaline Phosphatase C-Reactive Protein Total Protein Albumin Total Amylase Lipase Hep C Ab Diagnostic Liver Fibrosis Interp Physical Exam. Constitutional: Yes: No Distress, Calm. 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 Assessment/Plan MRCP ordered-- he is refusing Continue abx Monitor labs ?malignancy , vs stones Problem List - Problems (1) Abnormal liver function test Code(s): R94.5 - ABNORMAL RESULTS OF LIVER FUNCTION STUDIES (2) Cholangitis Code(s): K83.0 - CHOLANGITIS (3) Diabetes 1.5, managed as type 2 Code(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
--- NOTE | 2017-11-09 15:05 | PN ---
Progress Note (short form) - Note Progress Note: notes abdominal discomfort no fevers Vital Signs Period Temp Pulse Resp BP Sys/Dale Pulse Ox Last 24 Hr 96.8 F-98.5 F 71-90 19-20 107-138/52-71 97-98 +jaundice cor-rrr lungs clear abd soft,nt ext no edema CBC, BMP 11/09/17 06:00 11/09/17 06:00 Microbiology 11/06/17 18:00 Blood - Peripheral Venous Blood Culture - Final Escherichia Coli 11/06/17 18:00 Blood - Peripheral Venous Blood Culture - Preliminary NO GROWTH OBTAINED AFTER 48 HOURS, INCUBATION TO CONTINUE FOR 3 DAYS. 11/07/17 04:21 Urine - Urine Clean Catch Urine Culture - Final Contaminated: Please Repeat a/p fever/leukocytosis/abnl lfts ecoli bacteremia-switch to cefazolin c/w cholangitis agreeable to MRCP if his insurance will cover it! ?choledocholithiasis versus malignancy Problem List - Problems (1) Cholangitis Code(s): K83.0 - CHOLANGITIS (2) Abnormal liver function test Code(s): R94.5 - ABNORMAL RESULTS OF LIVER FUNCTION STUDIES
[2017-11-09] MEDS ORDERED: ceFAZolin SODIUM 1 GM VIAL ONE (18:14)
[2017-11-09] MEDS: CEFAZOLIN 2 GM in DEXTROSE 5%-WATER 100 ML IVPB SCH (18:15)
--- NOTE | 2017-11-09 20:06 | PN ---
GI Progress Note Subjective: GI NOte: Above notes appreciated. When I asked why he refused MRCP Kane told me that he does cannot afford it. He also asked whether every doctor seeing him is billing for services. I reassured him that he is under the government healthcare with Medicare. He again expressed concern that [facility] has taken all of his money. He denies abdominal pain but he is c/o constipation. His bilirubin is rising again. - Objective Vital Signs: Vital Signs Temperature 98.0 F 11/09/17 14:14 Pulse Rate 89 11/09/17 14:14 Respiratory Rate 20 11/09/17 10:00 Blood Pressure 118/68 11/09/17 14:14 O2 Sat by Pulse Oximetry (%) 98 11/09/17 09:00 Laboratory Tests 11/06/17 11/07/17 11/08/17 18:00 06:00 10:16 Total Bilirubin 5.2 H 6.1 H 5.1 H AST ALT Alkaline Phosphatase 799 H 656 H D 498 H D 11/09/17 06:00 Total Bilirubin 5.4 H AST 150 H D ALT 108 H Alkaline Phosphatase 506 H Constitutional: Anxious ...Auscultate: Yes: Normoactive Bowel Sounds ...Palpate: Yes: Soft, Other (nontender) Labs: CBC, BMP 11/09/17 06:00 11/09/17 06:00 INR, PTT INR 1.01 (0.83-1.09) 11/09/17 06:00 Problem List - Problems (1) Obstructive jaundice Assessment/Plan: Suspect malignant obstruction given the lack of pain and weight loss although the cholangitis favors stones. I have strongly advised Kane to comply with having the MRCP. I have also discussed the issue if Kane's competency with Dr. Jc. His comments suggest a component of paranoia which may be part of dementia or psychophrenia. He cannot tell me why he lives in a care home. Continue antibiotics. 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
[2017-11-09] MEDS: POLYETHYLENE GLYCOL 3350 119 GM BTL PO SCH (22:53)
[2017-11-10] MEDS ORDERED: ceFAZolin SODIUM 1 GM VIAL ONE ×3 (01:13→18:28)
[2017-11-10] MEDS ORDERED: DEXTROSE 5%-WATER 100 ML IVPB ONE ×3 (01:13→18:28)
[2017-11-10] MEDS: CEFAZOLIN 2 GM in DEXTROSE 5%-WATER 100 ML IVPB SCH ×3 (01:30→18:32)
[2017-11-10] MEDS: HEPARIN NA (PORCINE) 5,000 UNITS/ML 1ML VIAL SQ SCH ×3 (06:13→21:53)
[2017-11-10] MEDS: INSULIN SLIDING SCALE (NOVOLOG) 1 VIAL SQ SCH ×4 (06:14→21:53)
[2017-11-10 08:07] LABS: HBSAG SCREEN Negative (Negative); HEP A AB, IGM Positive (Negative); HEP B CORE AB, TOT Negative (Negative)
[2017-11-10 08:32] LABS: ALBUMIN 2.8 g/dl (3.4-5.0)
[2017-11-10 08:33] LABS: CHLORIDE 106 mmol/L (98-107); POTASSIUM 4.1 mmol/L (3.5-5.1); SODIUM 140 mmol/L (136-145)
[2017-11-10 08:36] LABS: BILIRUBIN,DIRECT 4.5 mg/dL (0.0-0.2); BILIRUBIN,TOTAL 5.5 mg/dL (0.2-1.0); TOT PROT 6.3 g/dl (6.4-8.2)
[2017-11-10 08:41] LABS: ALBUMIN 2.8 g/dl (3.4-5.0); ALK PHOS 541 U/L (45-117); ANION GAP 7 (8-16); BILIRUBIN,TOTAL 5.5 mg/dL (0.2-1.0); BLOOD UREA NITROGEN 10 mg/dL (7-18); CALCIUM 9.6 mg/dL (8.5-10.1); CO2 27 mmol/L (21-32); CREATININE 0.7 mg/dL (0.7-1.3); GLUCOSE,RANDOM 138 mg/dL (74-106); SGOT/AST 162 U/L (15-37); SGPT/ALT 115 U/L (12-78); TOT PROT 6.3 g/dl (6.4-8.2)
[2017-11-10] MEDS: LISINOPRIL 10 MG TABLET (FP) PO SCH (09:09)
[2017-11-10] MEDS: POLYETHYLENE GLYCOL 3350 119 GM BTL PO SCH ×2 (09:10→21:53)
[2017-11-10] MEDS: PANTOPRAZOLE 40 MG TABLET (FP) PO SCH (09:10)
--- NOTE | 2017-11-10 11:42 | PN ---
GI Progress Note Subjective: GI NOte: Feels relief of constipation. No colicky abdominal pain. He had refused to fill out the MRI questioneer but after my speaking with he is now filling it out with his nurse and tells me he will comply with the MRCP. He remains icteric and pruritic but not encephalopathic. He tells me that he was never and has no children or other family as his siblings have . He tells me that he lives at [facility] because his home was condemned by the main [facility] medical [facility]. 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 He could not maintain his house because it was old and feels that contractors took advantage of him. He denies any psychiatric disorders after I specifically asked about bipolar disease, depression and schizophrenia but tells me that he did have psych evaluation after losing his house. His Ca 19.9 is > 400. - Objective Vital Signs: Vital Signs Temperature 98.4 F 11/10/17 09:00 Pulse Rate 92 H 11/10/17 09:00 Respiratory Rate 20 11/10/17 09:00 Blood Pressure 135/84 11/10/17 09:00 O2 Sat by Pulse Oximetry (%) 98 11/09/17 21:00 Laboratory Tests 11/06/17 11/07/17 11/09/17 18:00 06:00 06:00 WBC 7.8 Total Bilirubin 5.2 H 6.1 H AST ALT Alkaline Phosphatase CA 19-9 Antigen 11/09/17 11/09/17 11/10/17 06:00 06:00 07:30 WBC Total Bilirubin 5.4 H 5.5 H AST ALT Alkaline Phosphatase CA 19-9 Antigen 422 H 11/10/17 07:30 WBC Total Bilirubin 5.5 H AST 162 H ALT 116 H Alkaline Phosphatase 538 H CA 19-9 Antigen Constitutional: No Distress Eyes: Yes: Sclera Icterus ...Auscultate: Yes: Normoactive Bowel Sounds ...Palpate: Yes: Soft, Other (nontender) Labs: CBC, BMP 11/09/17 06:00 11/10/17 07:30 INR, PTT INR 1.01 (0.83-1.09) 11/09/17 06:00 Problem List - Problems (1) Obstructive jaundice Assessment/Plan: Obstruction jaundice persists. Not clear whether Ca 19.9 reflects a neoplasm as obstructive stone disease elevate it. We again talked about the possibility of malignancy and need for the MRCP as the next step. Continue antibiotics. 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
--- NOTE | 2017-11-10 12:25 | PN ---
Progress Note (short form) - Note Progress Note: - Note Progress Note: pt seen/ examined complying for MRCP comfortable feels better after bm denies pain Lfts about the same Vital Signs - 24 hr 11/09/17 11/09/17 11/10/17 21:00 22:35 05:52 Temperature 97.5 F L 97.6 F Pulse Rate 85 74 Respiratory 20 20 20 Rate Blood Pressure 119/59 118/61 O2 Sat by Pulse 98 Oximetry (%) 11/10/17 09:00 Temperature 98.4 F Pulse Rate 92 H Respiratory 20 Rate Blood Pressure 135/84 O2 Sat by Pulse Oximetry (%) Current Medications Generic Name Dose Route Start Last Admin Trade Name Freq PRN Reason Stop Dose Admin Guaifenesin 10 ml 11/07/17 03:44 Robitussin Dm - PO Q6H PRN COUGH Heparin Sodium (Porcine) 5,000 unit 11/07/17 06:00 11/10/17 13:51 Heparin - SQ Not Given TID MICHAEL Cefazolin Sodium 2 gm/ 100 mls @ 200 mls/hr 11/09/17 18:00 11/10/17 18:32 Dextrose IVPB 200 mls/hr Q8H-IV MICHAEL Administration Insulin Aspart 1 vial 11/07/17 07:00 11/10/17 17:10 Novolog Vial Sliding Scale - SQ Not Given ACHS MICHAEL Protocol Ketorolac Tromethamine 15 mg 11/07/17 03:44 Toradol Injection - IVPUSH 11/12/17 03:43 Q6H PRN PAIN LEVEL 6-10 Lisinopril 10 mg 11/07/17 10:00 11/10/17 09:09 Prinivil PO 10 mg DAILY MICHAEL Administration Pantoprazole Sodium 40 mg 11/07/17 10:00 11/10/17 09:10 Protonix - PO 40 mg DAILY MICHAEL Administration Polyethylene Glycol 17 gm 11/09/17 22:00 11/10/17 09:10 Miralax (For Daily Use) - PO 17 gm BID MICHAEL Administration Sodium Phosphate 133 ml 11/07/17 03:45 11/09/17 18:36 Fleet Adult Rectal Enema - RC 133 ml DAILY PRN Administration CONSTIPATION Laboratory Results - last 24 hr 11/07/17 11/09/17 11/09/17 06:42 06:00 22:52 Sodium Potassium Chloride Carbon Dioxide Anion Gap BUN Creatinine Creat Clearance w eGFR POC Glucometer 141 Random Glucose Calcium Total Bilirubin Direct Bilirubin AST ALT Alkaline Phosphatase C-Reactive Protein Total Protein Albumin CA 19-9 Antigen 422 H Hep A IgM Ab Confirm Positive H Hepatitis A Ab Total Positive H Hep Bs Antigen Negative Hep Bs Antibody Non reactive Hep B Core Total Ab Negative 11/10/17 11/10/17 11/10/17 06:12 07:30 07:30 Sodium 140 Potassium 4.1 Chloride 106 Carbon Dioxide 27 Anion Gap 7 L BUN 10 Creatinine 0.7 Creat Clearance w eGFR > 60 POC Glucometer 129 Random Glucose 138 H Calcium 9.6 Total Bilirubin 5.5 H 5.5 H Direct Bilirubin 4.5 H AST 162 H 162 H ALT 115 H 116 H Alkaline Phosphatase 541 H D 538 H C-Reactive Protein 5.6 H Total Protein 6.3 L 6.3 L Albumin 2.8 L 2.8 L CA 19-9 Antigen Hep A IgM Ab Confirm Hepatitis A Ab Total Hep Bs Antigen Hep Bs Antibody Hep B Core Total Ab 11/10/17 11/10/17 11:35 17:07 Sodium Potassium Chloride Carbon Dioxide Anion Gap BUN Creatinine Creat Clearance w eGFR POC Glucometer 134 141 Random Glucose Calcium Total Bilirubin Direct Bilirubin AST ALT Alkaline Phosphatase C-Reactive Protein Total Protein Albumin CA 19-9 Antigen Hep A IgM Ab Confirm Hepatitis A Ab Total Hep Bs Antigen Hep Bs Antibody Hep B Core Total Ab Physical Exam. Constitutional: Yes: No Distress, Calm. 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 Assessment/Plan MRCP ordered-- may give Valium prior to MRCP psych eval Continue abx Monitor labs ?malignancy , vs stones Problem List - Problems (1) Abnormal liver function test Code(s): R94.5 - ABNORMAL RESULTS OF LIVER FUNCTION STUDIES (2) Cholangitis Code(s): K83.0 - CHOLANGITIS (3) Diabetes 1.5, managed as type 2 Code(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
[2017-11-10] MEDS ORDERED: diazePAM 5 MG TABLET PO ONE ×2 (14:15→19:45)
[2017-11-11] MEDS ORDERED: DEXTROSE 5%-WATER 100 ML IVPB ONE ×4 (01:01→09:37)
[2017-11-11] MEDS ORDERED: ceFAZolin SODIUM 1 GM VIAL ONE ×4 (01:01→09:37)
[2017-11-11] MEDS: CEFAZOLIN 2 GM in DEXTROSE 5%-WATER 100 ML IVPB SCH (01:21)
[2017-11-11] MEDS: HEPARIN NA (PORCINE) 5,000 UNITS/ML 1ML VIAL SQ SCH ×3 (06:16→21:51)
[2017-11-11] MEDS: INSULIN SLIDING SCALE (NOVOLOG) 1 VIAL SQ SCH ×4 (06:17→21:52)
[2017-11-11 07:16] LABS: BASO % 1.3 % (0-2.0); EOS % 5.3 % (0-4.5); HEMATOCRIT 33.7 % (35.4-49); HEMOGLOBIN 11.6 GM/dL (11.7-16.9); LYMPH % 24.7 % (8-40); MCH 32.7 pg (25.7-33.7); MCHC 34.5 g/dl (32.0-35.9); MEAN CELL VOLUME 94.8 fl (80-96); MEAN PLT VOLUME 6.7 fl (7.5-11.1); MONO % 10.5 % (3.8-10.2); NEUT % 58.2 % (42.8-82.8); PLATELET COUNT 335 K/MM3 (134-434); RBC 3.56 M/mm3 (4.00-5.60); RDW 15.2 % (11.9-15.9); WHITE BLOOD COUNT 6.6 K/mm3 (4.0-10.0)
[2017-11-11 08:09] LABS: CHLORIDE 105 mmol/L (98-107); POTASSIUM 3.9 mmol/L (3.5-5.1); SODIUM 140 mmol/L (136-145)
[2017-11-11 08:24] LABS: ALBUMIN 2.5 g/dl (3.4-5.0); ALK PHOS 465 U/L (45-117); ANION GAP 6 (8-16); BILIRUBIN,DIRECT 3.2 mg/dL (0.0-0.2); BILIRUBIN,TOTAL 3.8 mg/dL (0.2-1.0); BLOOD UREA NITROGEN 8 mg/dL (7-18); CALCIUM 9.4 mg/dL (8.5-10.1); CO2 29 mmol/L (21-32); CREATININE 0.6 mg/dL (0.7-1.3); GLUCOSE,RANDOM 123 mg/dL (74-106); SGOT/AST 106 U/L (15-37); SGPT/ALT 83 U/L (12-78); TOT PROT 5.7 g/dl (6.4-8.2)
[2017-11-11] MEDS: LISINOPRIL 10 MG TABLET (FP) PO SCH (09:30)
[2017-11-11] MEDS: POLYETHYLENE GLYCOL 3350 119 GM BTL PO SCH ×2 (09:30→21:59)
[2017-11-11] MEDS: PANTOPRAZOLE 40 MG TABLET (FP) PO SCH (09:30)
[2017-11-11] MEDS: CEFAZOLIN 2 GM/D5W 2 GM/50 ML ML IVPB SCH ×2 (09:42→17:22)
[2017-11-11 10:39] LABS: ANISOCYTOSIS 1+; MACROCYTOSIS 0; PLATELET ESTIMATE NORMAL
--- NOTE | 2017-11-11 11:22 | PN ---
Progress Note (short form) - Note Progress Note: patient seen and examined. Chart reviewed. Even wants noted Patient apparently refused MRCP--discussed with nursing staff No other issues today denies abdominal pain Afebrile Liver function tests improving Vital Signs Temp 98.6 F 11/11/17 08:56 Pulse 84 11/11/17 08:56 Resp 20 11/11/17 08:56 BP 125/65 11/11/17 08:56 Pulse Ox 98 11/10/17 21:00 Intake & Output 11/10/17 11/10/17 11/11/17 11:59 23:59 11:59 Intake Total 450 1000 350 Output Total 1450 400 550 Balance -1000 600 -200 Intake: IVPB 100 200 Oral 350 800 350 Output: Urine 1450 400 550 Void 1450 400 550 Other: Voiding Method Urinal Urinal Urinal # Unmeasured Voids Void 500 Bowel Movement No Active Medications Guaifenesin (Robitussin Dm -) 10 ml PO Q6H PRN PRN Reason: COUGH Heparin Sodium (Porcine) (Heparin -) 5,000 unit SQ TID [facility] Last Admin: 11/11/17 06:16 Dose: Not Given Cefazolin Sodium/Dextrose (Ancef 2 Gm Premixed Ivpb -) 2 gm in 50 mls @ 100 mls /hr IVPB Q8H-IV MICHAEL Last Admin: 11/11/17 09:42 Dose: 100 mls/hr Insulin Aspart (Novolog Vial Sliding Scale -) 1 vial SQ ACHS [facility]; Protocol Last Admin: 11/11/17 06:17 Dose: Not Given Ketorolac Tromethamine (Toradol Injection -) 15 mg IVPUSH Q6H PRN PRN Reason: PAIN LEVEL 6-10 Stop: 11/12/17 03:43 Lisinopril (Prinivil) 10 mg PO DAILY [facility] Last Admin: 11/11/17 09:30 Dose: 10 mg Pantoprazole Sodium (Protonix -) 40 mg PO DAILY [facility] Last Admin: 11/11/17 09:30 Dose: 40 mg Polyethylene Glycol (Miralax (For Daily Use) -) 17 gm PO BID [facility] Last Admin: 11/11/17 09:30 Dose: 17 gm Sodium Phosphate (Fleet Adult Rectal Enema -) 133 ml RC DAILY PRN PRN Reason: CONSTIPATION Last Admin: 11/09/17 18:36 Dose: 133 ml CBC,CMP WBC 6.6 K/mm3 (4.0-10.0) 11/11/17 06:30 RBC 3.56 M/mm3 (4.00-5.60) L 11/11/17 06:30 Hgb 11.6 GM/dL (11.7-16.9) L 11/11/17 06:30 Hct 33.7 % (35.4-49) L 11/11/17 06:30 MCV 94.8 fl (80-96) 11/11/17 06:30 MCH 32.7 pg (25.7-33.7) 11/11/17 06:30 MCHC 34.5 g/dl (32.0-35.9) 11/11/17 06:30 RDW 15.2 % (11.9-15.9) 11/11/17 06:30 Plt Count 335 K/MM3 (134-434) 11/11/17 06:30 MPV 6.7 fl (7.5-11.1) L 11/11/17 06:30 Absolute Neuts (auto) 3.8 # 11/11/17 06:30 Neutrophils % 58.2 % (42.8-82.8) 11/11/17 06:30 Neutrophils % (Manual) 57.4 % (42.8-82.8) 11/11/17 06:30 Band Neutrophils % 0.0 % 11/11/17 06:30 Lymphocytes % 24.7 % (8-40) 11/11/17 06:30 Lymphocytes % (Manual) 26.7 % (8-40) 11/11/17 06:30 Monocytes % 10.5 % (3.8-10.2) H 11/11/17 06:30 Monocytes % (Manual) 10 % (3.8-10.2) 11/11/17 06:30 Eosinophils % 5.3 % (0-4.5) H 11/11/17 06:30 Eosinophils % (Manual) 6.0 % (0-4.5) H 11/11/17 06:30 Basophils % 1.3 % (0-2.0) 11/11/17 06:30 Basophils % (Manual) 0.0 % (0-2.0) 11/11/17 06:30 Myelocytes % (Man) 0 % (0-2) 11/11/17 06:30 Promyelocytes % (Man) 0 % (0-2) 11/11/17 06:30 Blast Cells % (Manual) 0 % (0-0) 11/11/17 06:30 Nucleated RBC % 1 % (0-0) H 11/11/17 06:30 Metamyelocytes 0 % (0-2) 11/11/17 06:30 Hypochromia 0 11/11/17 06:30 Platelet Estimate Normal 11/11/17 06:30 Polychromasia 0 11/11/17 06:30 Poikilocytosis 1+ 11/11/17 06:30 Anisocytosis 1+ 11/11/17 06:30 Microcytosis 1+ 11/11/17 06:30 Macrocytosis 0 11/11/17 06:30 Sodium 140 mmol/L (136-145) 11/11/17 06:30 Potassium 3.9 mmol/L (3.5-5.1) 11/11/17 06:30 Chloride 105 mmol/L (98-107) 11/11/17 06:30 Carbon Dioxide 29 mmol/L (21-32) 11/11/17 06:30 Anion Gap 6 (8-16) L 11/11/17 06:30 BUN 8 mg/dL (7-18) 11/11/17 06:30 Creatinine 0.6 mg/dL (0.7-1.3) L 11/11/17 06:30 Creat Clearance w eGFR > 60 (>60) 11/11/17 06:30 POC Glucometer 127 UNITS (80-120) 11/11/17 05:49 Random Glucose 123 mg/dL (74-106) H 11/11/17 06:30 Lactic Acid 1.4 mmol/L (0.0-2.0) 11/06/17 20:25 Calcium 9.4 mg/dL (8.5-10.1) 11/11/17 06:30 Total Bilirubin 3.8 mg/dL (0.2-1.0) H 11/11/17 06:30 Direct Bilirubin 3.2 mg/dL (0.0-0.2) H D 11/11/17 06:30 AST 106 U/L (15-37) H D 11/11/17 06:30 ALT 83 U/L (12-78) H D 11/11/17 06:30 Alkaline Phosphatase 465 U/L (45-117) H D 11/11/17 06:30 Ammonia 22.4 umol/L (11-32) 11/11/17 06:30 Troponin I < 0.02 ng/ml (0.00-0.05) 11/06/17 18:29 C-Reactive Protein 5.6 MG/DL (0.00-0.3) H 11/10/17 07:30 Total Protein 5.7 g/dl (6.4-8.2) L 11/11/17 06:30 Albumin 2.5 g/dl (3.4-5.0) L 11/11/17 06:30 Total Amylase 38 U/L (25-115) 11/09/17 06:00 Lipase 137 U/L (73-393) 11/09/17 06:00 CA 19-9 Antigen 422 U/mL (0-35) H 11/09/17 06:00 Microbiology 11/06/17 18:00 Blood Culture - Preliminary Blood - Peripheral Venous NO GROWTH OBTAINED AFTER 96 HOURS, INCUBATION TO CONTINUE FOR 1 DAYS. Physical Exam. 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
[2017-11-11] MEDS: PIPERACILLIN/TAZOB 3.375 GM 3.375 GM in DEXTROSE 5%-WATER - 50 ML IVPB SCH (11:39)
--- NOTE | 2017-11-11 17:01 | PN ---
Progress Note (short form) - Note Progress Note: day #5 antibiotics didnot tolerate MRCP due to back pain no fevers Vital Signs Period Temp Pulse Resp BP Sys/Dale Pulse Ox Last 24 Hr 97.4 F-99.4 F 67-84 20-20 112-132/55-70 92-98 cor-rrr lungs clear abd soft,nt ext no edema CBC, BMP 11/11/17 06:30 11/11/17 06:30 Microbiology 11/06/17 18:00 Blood - Peripheral Venous Blood Culture - Preliminary NO GROWTH OBTAINED AFTER 96 HOURS, INCUBATION TO CONTINUE FOR 1 DAYS. 11/06/17 18:00 Blood - Peripheral Venous Blood Culture - Final Escherichia Coli 11/07/17 04:21 Urine - Urine Clean Catch Urine Culture - Final Contaminated: Please Repeat ca19-9 422 a/p fever/leukocytosis/abnl lfts ecoli bacteremia-switch to cefazolin-day #5 antibiotics c/w cholangitis malignancy vs choledocholithiasis- elevated tumor marker psych to evaluate ?re-attempt MRCP Problem List - Problems (1) Cholangitis Code(s): K83.0 - CHOLANGITIS (2) Abnormal liver function test Code(s): R94.5 - ABNORMAL RESULTS OF LIVER FUNCTION STUDIES
--- NOTE | 2017-11-11 18:19 | CON.PSY ---
Psychiatry Consult Chief Complaint: Asked to see Mr. Jay to determine his ability to make decisions with regard to MRCP/ERCP History of Present Problem: Patient seen at bedside, Medical records reviewed labs /Diagnostic work up reviewed RN Input appreciated. Mr June was seen at his bedside. He was having dinner and it was noted that he had a fairly adequate appetite and ate almost all food served. He was very guarded at first but during the course of this encounter he became more friendly and engaging. Patient states that he did not refuse the test but he cannot lie on his back for too long due to pain and he is willing to do the test. He understood the need for the test and its consequences if it is not done- " I can if I don't take care of this!" Symptoms: reports: Depressed Mood, Irritability - Current Medications Current Medications: Active Medications Guaifenesin (Robitussin Dm -) 10 ml PO Q6H PRN PRN Reason: COUGH Heparin Sodium (Porcine) (Heparin -) 5,000 unit SQ TID [facility] Last Admin: 11/11/17 13:25 Dose: Not Given Cefazolin Sodium/Dextrose (Ancef 2 Gm Premixed Ivpb -) 2 gm in 50 mls @ 100 mls /hr IVPB Q8H-IV [facility] Last Admin: 11/11/17 17:22 Dose: 100 mls/hr Insulin Aspart (Novolog Vial Sliding Scale -) 1 vial SQ ACHS [facility]; Protocol Last Admin: 11/11/17 16:30 Dose: Not Given Ketorolac Tromethamine (Toradol Injection -) 15 mg IVPUSH Q6H PRN PRN Reason: PAIN LEVEL 6-10 Stop: 11/12/17 03:43 Lisinopril (Prinivil) 10 mg PO DAILY [facility] Last Admin: 11/11/17 09:30 Dose: 10 mg Pantoprazole Sodium (Protonix -) 40 mg PO DAILY [facility] Last Admin: 11/11/17 09:30 Dose: 40 mg Polyethylene Glycol (Miralax (For Daily Use) -) 17 gm PO BID [facility] Last Admin: 11/11/17 09:30 Dose: 17 gm Sodium Phosphate (Fleet Adult Rectal Enema -) 133 ml RC DAILY PRN PRN Reason: CONSTIPATION Last Admin: 11/09/17 18:36 Dose: 133 ml Ursodiol (Actigal -) 300 mg PO BID MICHAEL - Allergies Allergies: Allergies Allergy/AdvReac Type Severity Reaction Status Date / Time No Known Allergies Allergy Verified 11/06/17 17:34 - Current Mental Status Evaluation Appearance: Other (Appropriate for the hospital setting) - Affect Affect: Constrictive - Mood Mood: Depressed, Irritable - Speech/Language Expressive: Coherent Receptive: Age Appropriate Comprehension of Spoken Words - Psychomotor Activity Psychomotor Activity: Normal - Thought Process Thought Process: Intact - Thought Content Hallucinations: Absent Delusions: Absent - Self Perception Self Perception: No Impairment (refused further testing/. Knows he is at [place], date, time situation , the president.) - Cognition Attention: Alert - Abstraction Judgement: Intact - Insight Insight: Intact - Suicidal Ideation Suicidal Ideation: No - Homicidal Ideation Homicidal Ideation: No Assessment/Plan Patient has capaiity to allow/ or refuse MRCP based on this examination. His only concern is that he cannot stay supine for too long
[2017-11-11] MEDS ORDERED: MORPHINE SULFATE 2 MG/ML VIAL IVPUSH SCH (18:40)
--- NOTE | 2017-11-11 21:10 | PN ---
GI Progress Note Subjective: GI NOte: Psych consult appreciated. Kane is deemed competent to make clinical decisions. I have asked him again to comply with the MRCP even of called for this tonight. He responded that "it's too much for me right now". He denies abdominal pain. LFTs are improving . Ammonia level okay. - Objective Vital Signs: Vital Signs Temperature 99.4 F 11/11/17 13:54 Pulse Rate 82 11/11/17 13:54 Respiratory Rate 20 11/11/17 08:56 Blood Pressure 132/66 11/11/17 13:54 O2 Sat by Pulse Oximetry (%) 92 L 11/11/17 09:00 Laboratory Tests 11/11/17 11/11/17 11/11/17 06:30 06:30 06:30 WBC 6.6 Total Bilirubin 3.8 H Direct Bilirubin 3.2 H D AST 106 H D ALT 83 H D Alkaline Phosphatase 465 H D Ammonia 22.4 Constitutional: Calm ...Auscultate: Yes: Normoactive Bowel Sounds ...Palpate: Yes: Soft, Other (nontender) Labs: CBC, BMP 11/11/17 06:30 11/11/17 06:30 INR, PTT INR 1.01 (0.83-1.09) 11/09/17 06:00 Problem List - Problems (1) Obstructive jaundice Assessment/Plan: Obstruction jaundice persists but appears to be slowly resolving. Will start Actigal to facilitate the process. We again talked about the possibility of malignancy and need for the MRCP as the next step. Continue antibiotics. 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
[2017-11-11] MEDS: URSODIOL 300 MG CAPSULE PO SCH (21:49)
[2017-11-12] MEDS: CEFAZOLIN 2 GM/D5W 2 GM/50 ML ML IVPB SCH ×3 (01:37→17:38)
[2017-11-12] MEDS: INSULIN SLIDING SCALE (NOVOLOG) 1 VIAL SQ SCH ×4 (06:19→22:02)
[2017-11-12] MEDS: HEPARIN NA (PORCINE) 5,000 UNITS/ML 1ML VIAL SQ SCH ×3 (06:20→22:02)
[2017-11-12] MEDS ORDERED: PT OWN MED DRAWER 7, Y5N ONE (09:33)
[2017-11-12] MEDS: LISINOPRIL 10 MG TABLET (FP) PO SCH (09:40)
[2017-11-12] MEDS: URSODIOL 300 MG CAPSULE PO SCH ×2 (09:40→22:02)
[2017-11-12] MEDS: PANTOPRAZOLE 40 MG TABLET (FP) PO SCH (09:41)
[2017-11-12] MEDS: POLYETHYLENE GLYCOL 3350 119 GM BTL PO SCH ×2 (09:41→22:02)
[2017-11-12] MEDS ORDERED: MORPHINE SULFATE 2 MG/ML VIAL IVPUSH ONE (09:49)
--- NOTE | 2017-11-12 09:52 | PN ---
Progress Note (short form) - Note Progress Note: patient seen and examined Denies pain Icteric Discussed in detail with patient--- after discussion--- patient agrees to do MRCP--- after getting pain medication--will order morphine--- 1 dose Discussed with nursing staff also. psych consult also noted and appreciated Vital Signs Temp 98.1 F 11/12/17 06:00 Pulse 79 11/12/17 06:00 Resp 19 11/12/17 06:00 BP 132/67 11/12/17 06:00 Pulse Ox 96 11/11/17 21:00 Intake & Output 11/11/17 11/11/17 11/12/17 11:59 23:59 11:59 Intake Total 350 700 Output Total 550 Balance -200 700 Intake: IVPB 100 Oral 350 600 Output: Urine 550 Void 550 Other: Voiding Method Urinal Urinal # Unmeasured Voids Void 800 Bowel Movement Yes No # Bowel Movements 1 Active Medications Guaifenesin (Robitussin Dm -) 10 ml PO Q6H PRN PRN Reason: COUGH Heparin Sodium (Porcine) (Heparin -) 5,000 unit SQ TID [facility] Last Admin: 11/12/17 06:20 Dose: 5,000 unit Cefazolin Sodium/Dextrose (Ancef 2 Gm Premixed Ivpb -) 2 gm in 50 mls @ 100 mls /hr IVPB Q8H-IV [facility] Last Admin: 11/12/17 09:40 Dose: 100 mls/hr Insulin Aspart (Novolog Vial Sliding Scale -) 1 vial SQ ACHS [facility]; Protocol Last Admin: 11/12/17 06:19 Dose: Not Given Lisinopril (Prinivil) 10 mg PO DAILY [facility] Last Admin: 11/12/17 09:40 Dose: 10 mg Morphine Sulfate (Morphine Sulfate) 2 mg IVPUSH ONCE MICHAEL Stop: 11/12/17 18:39 Last Admin: 11/11/17 21:49 Dose: 2 mg Morphine Sulfate (Morphine Injection -) 2 mg IVPUSH ONCE ONE Stop: 11/12/17 09:50 Pantoprazole Sodium (Protonix -) 40 mg PO DAILY [facility] Last Admin: 11/12/17 09:41 Dose: 40 mg Polyethylene Glycol (Miralax (For Daily Use) -) 17 gm PO BID [facility] Last Admin: 11/12/17 09:41 Dose: 17 gm Sodium Phosphate (Fleet Adult Rectal Enema -) 133 ml RC DAILY PRN PRN Reason: CONSTIPATION Last Admin: 11/09/17 18:36 Dose: 133 ml Ursodiol (Actigal -) 300 mg PO BID [facility] Last Admin: 11/12/17 09:40 Dose: 300 mg CBC,CMP WBC 6.6 K/mm3 (4.0-10.0) 11/11/17 06:30 RBC 3.56 M/mm3 (4.00-5.60) L 11/11/17 06:30 Hgb 11.6 GM/dL (11.7-16.9) L 11/11/17 06:30 Hct 33.7 % (35.4-49) L 11/11/17 06:30 MCV 94.8 fl (80-96) 11/11/17 06:30 MCH 32.7 pg (25.7-33.7) 11/11/17 06:30 MCHC 34.5 g/dl (32.0-35.9) 11/11/17 06:30 RDW 15.2 % (11.9-15.9) 11/11/17 06:30 Plt Count 335 K/MM3 (134-434) 11/11/17 06:30 MPV 6.7 fl (7.5-11.1) L 11/11/17 06:30 Absolute Neuts (auto) 3.8 # 11/11/17 06:30 Neutrophils % 58.2 % (42.8-82.8) 11/11/17 06:30 Neutrophils % (Manual) 57.4 % (42.8-82.8) 11/11/17 06:30 Band Neutrophils % 0.0 % 11/11/17 06:30 Lymphocytes % 24.7 % (8-40) 11/11/17 06:30 Lymphocytes % (Manual) 26.7 % (8-40) 11/11/17 06:30 Monocytes % 10.5 % (3.8-10.2) H 11/11/17 06:30 Monocytes % (Manual) 10 % (3.8-10.2) 11/11/17 06:30 Eosinophils % 5.3 % (0-4.5) H 11/11/17 06:30 Eosinophils % (Manual) 6.0 % (0-4.5) H 11/11/17 06:30 Basophils % 1.3 % (0-2.0) 11/11/17 06:30 Basophils % (Manual) 0.0 % (0-2.0) 11/11/17 06:30 Myelocytes % (Man) 0 % (0-2) 11/11/17 06:30 Promyelocytes % (Man) 0 % (0-2) 11/11/17 06:30 Blast Cells % (Manual) 0 % (0-0) 11/11/17 06:30 Nucleated RBC % 1 % (0-0) H 11/11/17 06:30 Metamyelocytes 0 % (0-2) 11/11/17 06:30 Hypochromia 0 11/11/17 06:30 Platelet Estimate Normal 11/11/17 06:30 Polychromasia 0 11/11/17 06:30 Poikilocytosis 1+ 11/11/17 06:30 Anisocytosis 1+ 11/11/17 06:30 Microcytosis 1+ 11/11/17 06:30 Macrocytosis 0 11/11/17 06:30 Sodium 140 mmol/L (136-145) 11/11/17 06:30 Potassium 3.9 mmol/L (3.5-5.1) 11/11/17 06:30 Chloride 105 mmol/L (98-107) 11/11/17 06:30 Carbon Dioxide 29 mmol/L (21-32) 11/11/17 06:30 Anion Gap 6 (8-16) L 11/11/17 06:30 BUN 8 mg/dL (7-18) 11/11/17 06:30 Creatinine 0.6 mg/dL (0.7-1.3) L 11/11/17 06:30 Creat Clearance w eGFR > 60 (>60) 11/11/17 06:30 POC Glucometer 117 UNITS (80-120) 11/12/17 06:17 Random Glucose 123 mg/dL (74-106) H 11/11/17 06:30 Lactic Acid 1.4 mmol/L (0.0-2.0) 11/06/17 20:25 Calcium 9.4 mg/dL (8.5-10.1) 11/11/17 06:30 Total Bilirubin 3.8 mg/dL (0.2-1.0) H 11/11/17 06:30 Direct Bilirubin 3.2 mg/dL (0.0-0.2) H D 11/11/17 06:30 AST 106 U/L (15-37) H D 11/11/17 06:30 ALT 83 U/L (12-78) H D 11/11/17 06:30 Alkaline Phosphatase 465 U/L (45-117) H D 11/11/17 06:30 Ammonia 22.4 umol/L (11-32) 11/11/17 06:30 Troponin I < 0.02 ng/ml (0.00-0.05) 11/06/17 18:29 C-Reactive Protein 5.6 MG/DL (0.00-0.3) H 11/10/17 07:30 Total Protein 5.7 g/dl (6.4-8.2) L 11/11/17 06:30 Albumin 2.5 g/dl (3.4-5.0) L 11/11/17 06:30 Total Amylase 38 U/L (25-115) 11/09/17 06:00 Lipase 137 U/L (73-393) 11/09/17 06:00 CA 19-9 Antigen 422 U/mL (0-35) H 11/09/17 06:00 Physical Exam. 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
--- NOTE | 2017-11-12 11:25 | PN ---
Progress Note (short form) - Note Progress Note: day #6 antibiotics didnot tolerate MRCP due to back pain no fevers Vital Signs Period Temp Pulse Resp BP Sys/Dale Pulse Ox Last 24 Hr 98.1 F-99.4 F 76-82 19-20 129-132/63-67 96 cor-rrr lungs clear abd soft,nt ext no edema CBC, BMP 11/11/17 06:30 11/11/17 06:30 Microbiology 11/06/17 18:00 Blood - Peripheral Venous Blood Culture - Final NO GROWTH AFTER 5 DAYS INCUBATION 11/06/17 18:00 Blood - Peripheral Venous Blood Culture - Final Escherichia Coli 11/07/17 04:21 Urine - Urine Clean Catch Urine Culture - Final Contaminated: Please Repeat ca19-9 422 a/p fever/leukocytosis/abnl lfts ecoli bacteremia- cefazolin-day #6 antibiotics c/w cholangitis malignancy vs choledocholithiasis- elevated tumor marker d/w Dr Jha re-attempt MRCP today Problem List - Problems (1) Cholangitis Code(s): K83.0 - CHOLANGITIS (2) Abnormal liver function test Code(s): R94.5 - ABNORMAL RESULTS OF LIVER FUNCTION STUDIES
[2017-11-12] MEDS ORDERED: INSULIN (NOVOLOG) ASPART 100 UNITS/ML 10ML VIAL ONE (15:20)
--- NOTE | 2017-11-12 17:32 | PN ---
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 I have informed Adm of the serious nature and grim prognosis associated with such neoplasms. I have advised transfer to [facility] where palliative stenting could be attempted and perhaps palliative chemotherapy. When he expressed reluctance with this option I discussed hospice care at [facility]. I answered all of his questions after which he is undecided. 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 He is contemplating his options and has been made aware of ERCP risks on several occasions and again today. Dr Hewitt will be covering this weekend. Please call him as needed. Continue antibiotics. 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
[2017-11-13] MEDS: CEFAZOLIN 2 GM/D5W 2 GM/50 ML ML IVPB SCH ×3 (01:17→17:44)
[2017-11-13] MEDS: HEPARIN NA (PORCINE) 5,000 UNITS/ML 1ML VIAL SQ SCH ×3 (06:40→21:37)
[2017-11-13] MEDS: INSULIN SLIDING SCALE (NOVOLOG) 1 VIAL SQ SCH ×4 (06:40→21:37)
[2017-11-13 08:14] LABS: BASO % 0.8 % (0-2.0); EOS % 4.2 % (0-4.5); HEMATOCRIT 35.8 % (35.4-49); HEMOGLOBIN 12.2 GM/dL (11.7-16.9); LYMPH % 21.8 % (8-40); MCH 32.6 pg (25.7-33.7); MCHC 34.1 g/dl (32.0-35.9); MEAN CELL VOLUME 95.5 fl (80-96); MEAN PLT VOLUME 6.9 fl (7.5-11.1); MONO % 9.7 % (3.8-10.2); NEUT % 63.5 % (42.8-82.8); PLATELET COUNT 354 K/MM3 (134-434); RBC 3.74 M/mm3 (4.00-5.60); RDW 14.9 % (11.9-15.9); WHITE BLOOD COUNT 7.9 K/mm3 (4.0-10.0)
[2017-11-13 08:48] LABS: ALBUMIN 2.7 g/dl (3.4-5.0); ANION GAP 8 (8-16); BLOOD UREA NITROGEN 9 mg/dL (7-18); CALCIUM 9.8 mg/dL (8.5-10.1); CHLORIDE 103 mmol/L (98-107); CO2 29 mmol/L (21-32); GLUCOSE,RANDOM 119 mg/dL (74-106); SODIUM 140 mmol/L (136-145)
[2017-11-13 08:53] LABS: ALK PHOS 440 U/L (45-117); CREATININE 0.6 mg/dL (0.7-1.3); SGPT/ALT 62 U/L (12-78); TOT PROT 6.1 g/dl (6.4-8.2)
[2017-11-13 08:58] LABS: POTASSIUM 4.2 mmol/L (3.5-5.1); SGOT/AST 90 U/L (15-37)
[2017-11-13] MEDS: LISINOPRIL 10 MG TABLET (FP) PO SCH (09:43)
[2017-11-13] MEDS: URSODIOL 300 MG CAPSULE PO SCH ×2 (09:43→21:36)
[2017-11-13] MEDS: PANTOPRAZOLE 40 MG TABLET (FP) PO SCH (09:43)
[2017-11-13] MEDS: POLYETHYLENE GLYCOL 3350 119 GM BTL PO SCH ×2 (09:43→21:37)
[2017-11-13 09:45] LABS: PLATELET ESTIMATE ADEQUATE
[2017-11-13] MEDS ORDERED: INSULIN (NOVOLOG) ASPART 100 UNITS/ML 10ML VIAL ONE ×2 (10:06→16:17)
--- NOTE | 2017-11-13 11:44 | PN ---
Progress Note (short form) - Note Progress Note: patient seen and examined today. Denies pain. MRCP findings noted/GI follow-up noted. Discussed with the patient--- patient aware of the diagnoses and acknowledges that Dr. Jeffers discussed with him last night. Not sure what to do--- thinking about it--- not willing for any procedure yet. Vital Signs Temp 97.8 F 11/13/17 06:19 Pulse 76 11/13/17 06:19 Resp 20 11/13/17 06:19 BP 126/66 11/13/17 06:19 Pulse Ox 96 11/12/17 22:00 Intake & Output 11/12/17 11/12/17 11/13/17 11:59 23:59 11:59 Intake Total 500 425 Output Total 450 800 Balance 50 -375 Intake: IVPB 100 100 Oral 400 325 Output: Urine 450 800 Void 450 800 Other: Voiding Method Urinal Urinal Urinal # Unmeasured Voids Void 3 Bowel Movement No Active Medications Guaifenesin (Robitussin Dm -) 10 ml PO Q6H PRN PRN Reason: COUGH Heparin Sodium (Porcine) (Heparin -) 5,000 unit SQ TID [facility] Last Admin: 11/13/17 06:40 Dose: 5,000 unit Cefazolin Sodium/Dextrose (Ancef 2 Gm Premixed Ivpb -) 2 gm in 50 mls @ 100 mls /hr IVPB Q8H-IV [facility] Last Admin: 11/13/17 09:43 Dose: 100 mls/hr Insulin Aspart (Novolog Vial Sliding Scale -) 1 vial SQ ACHS [facility]; Protocol Last Admin: 11/13/17 10:15 Dose: Not Given Lisinopril (Prinivil) 10 mg PO DAILY [facility] Last Admin: 11/13/17 09:43 Dose: 10 mg Pantoprazole Sodium (Protonix -) 40 mg PO DAILY [facility] Last Admin: 11/13/17 09:43 Dose: 40 mg Polyethylene Glycol (Miralax (For Daily Use) -) 17 gm PO BID [facility] Last Admin: 11/13/17 09:43 Dose: 17 gm Sodium Phosphate (Fleet Adult Rectal Enema -) 133 ml RC DAILY PRN PRN Reason: CONSTIPATION Last Admin: 11/09/17 18:36 Dose: 133 ml Ursodiol (Actigal -) 300 mg PO BID [facility] Last Admin: 11/13/17 09:43 Dose: 300 mg CBC, BMP 11/13/17 07:05 11/13/17 07:05 CMP Sodium 140 mmol/L (136-145) 11/13/17 07:05 Potassium 4.2 mmol/L (3.5-5.1) 11/13/17 07:05 Chloride 103 mmol/L (98-107) 11/13/17 07:05 Carbon Dioxide 29 mmol/L (21-32) 11/13/17 07:05 Anion Gap 8 (8-16) 11/13/17 07:05 BUN 9 mg/dL (7-18) 11/13/17 07:05 Creatinine 0.6 mg/dL (0.7-1.3) L 11/13/17 07:05 Creat Clearance w eGFR > 60 (>60) 11/13/17 07:05 POC Glucometer 125 UNITS (80-120) 11/13/17 10:10 Random Glucose 119 mg/dL (74-106) H 11/13/17 07:05 Lactic Acid 1.4 mmol/L (0.0-2.0) 11/06/17 20:25 Calcium 9.8 mg/dL (8.5-10.1) 11/13/17 07:05 Total Bilirubin 3.0 mg/dL (0.2-1.0) H 11/13/17 07:05 Direct Bilirubin 3.2 mg/dL (0.0-0.2) H D 11/11/17 06:30 AST 90 U/L (15-37) H 11/13/17 07:05 ALT 62 U/L (12-78) D 11/13/17 07:05 Alkaline Phosphatase 440 U/L (45-117) H D 11/13/17 07:05 Ammonia 22.4 umol/L (11-32) 11/11/17 06:30 Troponin I < 0.02 ng/ml (0.00-0.05) 11/06/17 18:29 C-Reactive Protein 5.6 MG/DL (0.00-0.3) H 11/10/17 07:30 Total Protein 6.1 g/dl (6.4-8.2) L 11/13/17 07:05 Albumin 2.7 g/dl (3.4-5.0) L 11/13/17 07:05 Total Amylase 38 U/L (25-115) 11/09/17 06:00 Lipase 137 U/L (73-393) 11/09/17 06:00 CA 19-9 Antigen 422 U/mL (0-35) H 11/09/17 06:00 Physical Exam. Constitutional: Yes: No Distress, Comfortable. 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
[2017-11-14] MEDS: CEFAZOLIN 2 GM/D5W 2 GM/50 ML ML IVPB SCH ×3 (01:26→16:59)
[2017-11-14] MEDS: INSULIN SLIDING SCALE (NOVOLOG) 1 VIAL SQ SCH ×4 (06:02→22:04)
[2017-11-14] MEDS: URSODIOL 300 MG CAPSULE PO SCH ×2 (09:23→22:02)
[2017-11-14] MEDS: PANTOPRAZOLE 40 MG TABLET (FP) PO SCH (09:23)
[2017-11-14] MEDS: LISINOPRIL 10 MG TABLET (FP) PO SCH (09:23)
[2017-11-14] MEDS: POLYETHYLENE GLYCOL 3350 119 GM BTL PO SCH ×2 (09:24→23:09)
[2017-11-14] MEDS ORDERED: INSULIN (NOVOLOG) ASPART 100 UNITS/ML 10ML VIAL ONE (11:30)
--- NOTE | 2017-11-14 12:26 | PN ---
Progress Note (short form) - Note Progress Note: patient seen and examined Comfortable Denies pain Anxiety + Do not want any--- procedures done Vital Signs Temp 98.4 F 11/14/17 07:49 Pulse 76 11/14/17 07:49 Resp 18 11/14/17 07:49 BP 140/87 11/14/17 07:49 Pulse Ox 97 11/14/17 09:00 Intake & Output 11/13/17 11/14/17 11/14/17 23:59 11:59 23:59 Intake Total 700 50 Output Total 800 Balance -100 50 Weight 266 lb 12.149 oz Intake: IVPB 100 50 Oral 600 Output: Urine 800 Void 800 Other: Voiding Method Urinal Urinal # Unmeasured Voids Void 300 Bowel Movement No Height 5 ft 11 in Body Mass Index (BMI) 37.2 Active Medications Guaifenesin (Robitussin Dm -) 10 ml PO Q6H PRN PRN Reason: COUGH Cefazolin Sodium/Dextrose (Ancef 2 Gm Premixed Ivpb -) 2 gm in 50 mls @ 100 mls /hr IVPB Q8H-IV [facility] Last Admin: 11/14/17 09:23 Dose: 100 mls/hr Insulin Aspart (Novolog Vial Sliding Scale -) 1 vial SQ ACHS [facility]; Protocol Last Admin: 11/14/17 11:31 Dose: 2 units Lisinopril (Prinivil) 10 mg PO DAILY [facility] Last Admin: 11/14/17 09:23 Dose: 10 mg Pantoprazole Sodium (Protonix -) 40 mg PO DAILY [facility] Last Admin: 11/14/17 09:23 Dose: 40 mg Polyethylene Glycol (Miralax (For Daily Use) -) 17 gm PO BID [facility] Last Admin: 11/14/17 09:24 Dose: 17 gm Sodium Phosphate (Fleet Adult Rectal Enema -) 133 ml RC DAILY PRN PRN Reason: CONSTIPATION Last Admin: 11/09/17 18:36 Dose: 133 ml Ursodiol (Actigal -) 300 mg PO BID [facility] Last Admin: 11/14/17 09:23 Dose: 300 mg CBC, BMP 11/13/17 07:05 11/13/17 07:05 Physical Exam. Constitutional: Yes: No Distress, Comfortable. 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 Problem List - Problems (1) Cholangiocarcinoma Code(s): C22.1 - INTRAHEPATIC BILE DUCT CARCINOMA
[2017-11-14] MEDS ORDERED: ALPRAZolam 0.25 MG TABLET PO PRN (12:27)
[2017-11-15] MEDS: CEFAZOLIN 2 GM/D5W 2 GM/50 ML ML IVPB SCH ×2 (02:03→09:36)
[2017-11-15] MEDS: INSULIN SLIDING SCALE (NOVOLOG) 1 VIAL SQ SCH ×3 (06:04→16:38)
[2017-11-15] MEDS: URSODIOL 300 MG CAPSULE PO SCH (09:36)
[2017-11-15] MEDS: LISINOPRIL 10 MG TABLET (FP) PO SCH (09:36)
[2017-11-15] MEDS: POLYETHYLENE GLYCOL 3350 119 GM BTL PO SCH (09:37)
[2017-11-15] MEDS: PANTOPRAZOLE 40 MG TABLET (FP) PO SCH (09:37)
--- NOTE | 2017-11-15 11:55 | DS ---
Physical Examination Vital Signs: Vital Signs Temperature 97.3 F L 11/15/17 05:30 Pulse Rate 77 11/15/17 05:30 Respiratory Rate 20 11/14/17 21:38 Blood Pressure 136/82 11/15/17 05:30 O2 Sat by Pulse Oximetry (%) 97 11/14/17 09:00 Findings/Remarks: comfortable No new issues Denies pain Tolerating diet Constitutional: Yes: No Distress, Anxious Neck: Yes: Supple Cardiovascular: Yes: Regular Rate and Rhythm Respiratory: Yes: Diminished Gastrointestinal: Yes: Soft, Abdomen, Obese Edema: No Neurological: Yes: Alert Labs: CBC, BMP 11/13/17 07:05 11/13/17 07:05 Discharge Summary Reason For Visit: ACUTE CHOLANGITIS Current Active Problems Abnormal liver function test (Acute) Cholangiocarcinoma (Acute) Cholangitis (Acute) Diabetes 1.5, managed as type 2 (Acute) Hyperlipidemia (Acute) Hypertension (Acute) Obstructive jaundice (Acute) Weight loss, abnormal (Acute) Hospital Course: patient diagnosed with cholangiocarcinoma Do not want any further treatment patient followed by GI Overall stable [facility]. Discussed with nursing staff also Medications reconciled Condition: Guarded - Instructions Disposition: [facility] F[facility]ILITY - Home Medications Comprehensive Discharge Medication List: Ambulatory Orders Acetaminophen [Pain Relief] 650 mg PO PRN PRN 11/06/17 Aspirin [Ecotrin] 81 mg PO DAILY 11/06/17 Lisinopril [Prinivil] 10 mg PO DAILY 11/06/17 Magnesium Hydrox 2400MG/30Ml [Milk of Magnesia -] 30 ml PO PRN 11/06/17 Pantoprazole Sodium [Protonix] 40 mg PO DAILY 11/06/17 Sodium Phosphate/Na Biphos [Fleet Adult Rectal Enema -] 133 ml RC PRN 11/06/17 metFORMIN HCL [Metformin HCl] 500 mg PO BID 11/06/17 Alprazolam [Xanax] 0.25 mg PO Q8H PRN #30 tablet MDD 3 11/15/17 Heparin - 5,000 unit SQ TID vial 11/15/17 Polyethylene Glycol 3350 [Miralax 119 gm Btl -] 17 gm PO BID bottle 11/15/17 Ursodiol [Actigal -] 300 mg PO BID #0 capsule 11/15/17
[2017-11-15 15:54] VITALS: BP 147/79; PULSE 82; TEMP 98.6
== END 2017-11-15 18:50 | DRG 871 ==
LOC: JER 17:09 → JERBED 23:48 → J4W 11-07 08:30 → J6S 11-08 10:49
PROVIDERS: ADMIT Internal Medicine; ATTEND Internal Medicine
DX: A41.51 Sepsis due to Escherichia coli [E. coli] (principal); K83.1 Obstruction of bile duct; C22.1 Intrahepatic bile duct carcinoma; K83.0 Cholangitis; E87.2 Acidosis; E11.9 Type 2 diabetes mellitus without complications; J44.9 Chronic obstructive pulmonary disease, unspecified; K21.9 Gastro-esophageal reflux disease without esophagitis; I10 Essential (primary) hypertension; R00.0 Tachycardia, unspecified; I95.9 Hypotension, unspecified; E78.5 Hyperlipidemia, unspecified; R94.5 Abnormal results of liver function studies; R50.9 Fever, unspecified; E66.9 Obesity, unspecified; Z68.37 Body mass index [BMI] 37.0-37.9, adult; K83.8 Other specified diseases of biliary tract; R63.4 Abnormal weight loss; Z99.3 Dependence on wheelchair; Z66 Do not resuscitate
CPT/HCPCS: 36415; 70450-TC; 71045-TC-FY; 74176-TC; 74182-TC; 76705-TC; 80048; 80053; 80076; 81003; 81015; 82140; 82150; 82248; 82803; 82962; 83605; 83690; 84484; 85025; 85610; 85730; 86140; 86301; 86704; 86706; 86708; 86803; 86850; 86900; 86901; 87040; 87086; 87186; 87340; 93005; 93010; 99285-25; J0131; J1644; J7030

== ENCOUNTER 2018-01-15 | Emergency (ER) | payer SELFPAY ==
[2018-01-15 00:16] VITALS: BP 111/57; PULSE 123; TEMP 99.3; BMI 31.4
--- NOTE | 2018-01-15 00:56 | PDOC ---
History of Present Illness - General Chief Complaint: Injury Stated Complaint: FALL History Source: Patient Exam Limitations: No Limitations - History of Present Illness Initial Comments: 77 y/o M w/PMH of COPD, HTN, GERD, SOB, Anemia, DM, recently diagnosed cholangiocarcinoma presents to the ER from [facility] s/p fall. Pt states he fell off the bed as he tried to clean something off to the side of his bed. He denies any LOC or head trauma and that he landed on his side. He denies N/V/F/C , SOB, CP, palpitations, dizziness, light-headedness, dysuria,frequency, diarrhea, blood in urine, blood in stool. He has no new joint pains and only has his chronic joint pains at this time. Of note, pt is on heparin at [place]. Past History - Past Medical History Allergies/Adverse Reactions: Allergies Allergy/AdvReac Type Severity Reaction Status Date / Time No Known Allergies Allergy Verified 01/15/18 00:14 Home Medications: Ambulatory Orders Acetaminophen [Pain Relief] 650 mg PO PRN PRN 11/06/17 Aspirin [Ecotrin] 81 mg PO DAILY 11/06/17 Lisinopril [Prinivil] 10 mg PO DAILY 11/06/17 Magnesium Hydrox 2400MG/30Ml [Milk of Magnesia -] 30 ml PO PRN 11/06/17 Pantoprazole Sodium [Protonix] 40 mg PO DAILY 11/06/17 Sodium Phosphate/Na Biphos [Fleet Adult Rectal Enema -] 133 ml RC PRN 11/06/17 metFORMIN HCL [Metformin HCl] 500 mg PO BID 11/06/17 Alprazolam [Xanax] 0.25 mg PO Q8H PRN #30 tablet MDD 3 11/15/17 Heparin - 5,000 unit SQ TID vial 11/15/17 Polyethylene Glycol 3350 [Miralax 119 gm Btl -] 17 gm PO BID bottle 11/15/17 Ursodiol [Actigal -] 300 mg PO BID #0 capsule 11/15/17 COPD: Yes Diabetes: Yes GI Disorders: Yes (gerd) HTN: Yes - Suicide/Smoking/Psychosocial Hx Smoking History: Unknown if ever smoked Have you smoked in the past 12 months: No Information on smoking cessation initiated: No Hx Alcohol Use: No Drug/Substance Use Hx: No Substance Use Type: None Review of Systems - Review of Systems Able to Perform ROS?: Yes Constitutional: No: Chills, Fever HEENTM: No: Blurred Vision Respiratory: No: Shortness of Breath Cardiac (ROS): No: Chest Pain, Palpitations ABD/GI: No: Diarrhea, Nausea, Vomiting : No: Burning, Dysuria, Frequency Musculoskeletal: Yes: Joint Pain (chronic pains) Integumentary: Yes: Other (No lacerations noted by pt) Neurological: No: Dizziness *Physical Exam - Vital Signs Last Vital Signs Temp Pulse Resp BP Pulse Ox 99.3 F 123 H 20 111/57 L 92 L 01/15/18 00:14 01/15/18 00:14 01/15/18 00:14 01/15/18 00:14 01/15/18 00:14 - Physical Exam General Appearance: Yes: Disheveled. No: Apparent Distress HEENT: positive: EOMI, Normal Voice, Other (Normocephalic, Atraumatic) Neck: positive: Supple. negative: Tender Respiratory/Chest: positive: Decreased Breath Sounds (but CTA b/l otherwise) Cardiovascular: positive: Regular Rhythm, Regular Rate, S1, S2 Gastrointestinal/Abdominal: positive: Normal Bowel Sounds, Soft. negative: Tender Musculoskeletal: positive: Other (Full ROM passively with no pain. No log rolling pain at femur/hip. Full ROM of UE) Extremity: positive: Other (as noted in MSK exam). negative: Erythema Integumentary: positive: Other (No lacerations noted) Neurologic: positive: Fully Oriented, Alert, Motor Strength 5/5 (B/L UE and LE) Medical Decision Making - Medical Decision Making 01/15/18 00:[address] and C-spine CT 01/15/18 01:00 Pt refusing any scans at this time. He would like to go back. He states that he pays out of pocket for all his medical expenses and would not like to pay for a CT scan. It was explained to him that because he is on heparin that he is at increased risk of bleeding including in the head and a head CT would help rule out a bleed in his head. Pt understands the risks of not having a head CT and is still refusing the CT scans. Pt to be discharged back to [facility]. Pt to return to ER if he has worsening of symptoms or new concerning symptoms including but not limited to fevers, chills, nausea, vomiting, visual disturbances, persistent headaches. *DC/Admit/Observation/Transfer Diagnosis at time of Disposition: Fall - Discharge Dispostion Disposition: [facility] Condition at time of disposition: Fair Decision to Admit order: No - Referrals Referrals: Jah Jha MD [Primary Care Provider] - - Patient Instructions Printed Discharge Instructions: How to Prevent Falls Additional Instructions: Follow up with your primary care doctor within 1 week. Please come back to the ER if you have worsening of symptoms or new concerning symptoms including but not limited to fevers, chills, nausea, vomiting, visual disturbances, persistent headaches. - Post Discharge Activity
--- NOTE | 2018-01-15 00:57 | PDOC ---
Attending Attestation - Resident Resident Name: Timmy Segovia - ED Attending Attestation I have performed the following: I have examined & evaluated the patient, The case was reviewed & discussed with the resident, I agree w/resident's findings & plan - HPI HPI: 01/15/18 01:38 The patient is a 77 year old male, with a significant past medical history of COPD, HTN, GERD, SOB, Anemia, DM, cholangiocarcinoma, who presents to the emergency department from [facility] s/p fall. As per patient, he was cleaning something on the side of his bed when he subsequently fell off. He denies any loss of consciousness or head trauma.He denies any recent fevers, chills, headache or dizziness. He denies any recent nausea, vomit, diarrhea or constipation. He denies any recent chest pain or shortness of breath. He denies any recent dysuria, frequency, urgency or hematuria. Allergies: NKDA Social History: Nonsmoker. Denies EtOH use and recreational drug use. - Physicial Exam PE: 01/15/18 01:38 GENERAL: Awake, alert, and fully oriented, in no acute distress HEAD: No signs of trauma EYES: PERRLA, EOMI, sclera anicteric, conjunctiva clear ENT: Auricles normal inspection, hearing grossly normal, nares patent, oropharynx clear without exudates. Moist mucosa NECK: Normal ROM, supple, no lymphadenopathy, JVD, or masses LUNGS: Breath sounds equal, clear to auscultation bilaterally. No wheezes, and no crackles HEART: Regular rate and rhythm, normal S1 and S2, no murmurs, rubs or gallops ABDOMEN: Soft, nontender, normoactive bowel sounds. No guarding, no rebound. No masses EXTREMITIES: Normal range of motion, no edema. No clubbing or cyanosis. No cords, erythema, or tenderness NEUROLOGICAL: Cranial nerves II through XII grossly intact. Normal speech, normal gait SKIN: Warm, Dry, normal turgor, no rashes or lesions noted. <Shannon Childers - Last Filed: 01/15/18 01:38> - Medical Decision Making 01/21/18 13:05 Pt presents to the ED after mechanical fall from bed. DEnies LOC. Denies pain. Tachycardia has resolved. GIven age and anticoagulant use, plan was for CT head, but patient is refusing. He is insistent that he did not hit his head and states that he needs to pay out of pocket for every study that he gets. HE understands that he may be at risk for intracrainial bleeding. PAtient is alert and oriented and able to understand and articulate the risk of refusing CT. Will discharge back to care home. <Kimmie Cevallos - Last Filed: 01/21/18 13:08> Attestations - Attestations 01/15/18 01:39 Documentation prepared by Shannon Childers, acting as veterinary medical officer for Kimmie Cevallos MD. <Shannon Childers - Last Filed: 01/15/18 01:38>
== END 2018-01-15 03:32 ==
LOC: JER
DX: Z04.3 Encounter for examination and observation following other accident (principal); W06.XXXA Fall from bed, initial encounter; Y93.89 Activity, other specified; Y92.122 Bedroom in nursing home as the place of occurrence of the external cause; Y99.8 Other external cause status; I10 Essential (primary) hypertension; K21.9 Gastro-esophageal reflux disease without esophagitis; J44.9 Chronic obstructive pulmonary disease, unspecified; D64.9 Anemia, unspecified; E11.9 Type 2 diabetes mellitus without complications; Z79.84 Long term (current) use of oral hypoglycemic drugs; Z79.01 Long term (current) use of anticoagulants; Z79.82 Long term (current) use of aspirin; C22.1 Intrahepatic bile duct carcinoma
CPT/HCPCS: 99281-25; 99283-25

== ENCOUNTER 2021-03-31 22:26 | Inpatient (IN) | payer OTHER ==
[2021-03-31 22:57] VITALS: BMI 39.2
[2021-04-01 00:28] LABS: INR 1.09 (0.83-1.09); PROTHROMBIN TIME (PATIENT) 12.8 SEC (9.7-13.0)
[2021-04-01 00:30] LABS: ACTIVATED PTT 29.7 SECONDS (25.2-36.5)
[2021-04-01] MEDS ORDERED: SODIUM CHLORIDE 0.9% 500 ML INFUS.BAG IV ONE (00:31)
[2021-04-01] MEDS ORDERED: ACETAMINOPHEN 1000 MG/100 ML BAG IVPB ONE (00:32)
[2021-04-01 00:33] LABS: VENOUS BASE EXCESS -1.3 mmol/L (-2-2); VENOUS O2 SATURATION 35.8 % (70-80); VENOUS PCO2 62.4 mmHg (38-52); VENOUS PH 7.257 (7.310-7.410)
[2021-04-01 00:48] LABS: BASO % 0.4 % (0-2.0); EOS % 0.9 % (0-4.5); HEMATOCRIT 37.8 % (35.4-49); HEMOGLOBIN 12.6 GM/dL (11.7-16.9); LYMPH % 9.2 % (8-40); MCH 30.9 pg (25.7-33.7); MCHC 33.3 g/dl (32.0-35.9); MEAN PLT VOLUME 6.4 fl (7.5-11.1); MONO % 10.3 % (3.8-10.2); NEUT % 79.2 % (42.8-82.8); PLATELET COUNT 315 10^3/uL (134-434); RBC 4.06 M/mm3 (4.00-5.60); RDW 14.3 % (11.9-15.9); WHITE BLOOD COUNT 15.8 K/mm3 (4.0-10.0)
[2021-04-01] MEDS ORDERED: ACETAMINOPHEN INJECTION 100 ML IVPB ONE (01:16)
[2021-04-01] MEDS ORDERED: PIPERACILLIN/TAZOB 4.5 GM 4.5 GM in DEXTROSE 5%-WATER 100 ML IVPB ONE (02:21)
[2021-04-01] MEDS ORDERED: LIDOCAINE HCL 2% JELLY 10 ML CARTRIDGE ONE (03:06)
[2021-04-01] MEDS ORDERED: PIPERACILLIN/TAZOB 4.5 GM 4.5 GM/100 ML BAG IVPB ONE (03:08)
[2021-04-01 03:37] LABS: ALBUMIN 2.4 g/dl (3.4-5.0); ALK PHOS 112 U/L (45-117); ANION GAP 10 MMOL/L (8-16); BILIRUBIN,TOTAL 0.4 mg/dL (0.2-1); BLOOD UREA NITROGEN 88.2 mg/dL (7-18); CALCIUM 9.6 mg/dL (8.5-10.1); CHLORIDE 96 mmol/L (98-107); CO2 25 mmol/L (21-32); GLUCOSE,RANDOM 136 mg/dL (74-106); LIPASE 107 U/L (73-393); MAGNESIUM 3.5 mg/dL (1.8-2.4); PHOSPHOROUS 4.3 mg/dL (2.5-4.9); SGOT/AST 19 U/L (15-37); SGPT/ALT 12 U/L (13-61); SODIUM 131 mmol/L (136-145); TOT PROT 6.7 g/dl (6.4-8.2)
[2021-04-01] MEDS ORDERED: CALCIUM GLUCONATE 10% - 1,000 MG/10 ML VIAL IVPB ONE (03:45)
[2021-04-01] MEDS ORDERED: SODIUM ZIRCONIUM CYCLOSILICATE (LOKELMA) 5 GM PACKET PO ONE (03:46)
[2021-04-01] MEDS ORDERED: DEXTROSE 50%-WATER - 25 GM/50 ML VIAL IVPUSH ONE (03:46)
[2021-04-01] MEDS ORDERED: ALBUTEROL SO4 HFA INHALER IH ONE ×2 (03:46→04:22)
[2021-04-01] MEDS ORDERED: INSULIN REGULAR HUMAN 100 UNITS/ML *VIAL IVPUSH ONE (03:46)
[2021-04-01 04:07] LABS: EPI CELLS 2 /uL (0-25.1); HYALINE CASTS 0 /uL (0-3.1); PH,URINE 5.5 (5.0-8.0); URINE APPEARANCE CLEAR; URINE BACTERIA 5 /uL (0-1359); URINE BILIRUBIN NEGATIVE (NEGATIVE); URINE COLOR DK YELLOW; URINE GLUCOSE (UA) NEGATIVE (NEGATIVE); URINE KETONE NEGATIVE (NEGATIVE); URINE LEUK ESTERASE 1+ (NEGATIVE); URINE NITRITE NEGATIVE (NEGATIVE); URINE PROTEIN NEGATIVE (NEGATIVE); URINE RBC 151 /uL (0-23.9); URINE UROBILINOGEN 0.2 mg/dL (0.2-1.0); URINE WBC 11 /uL (0-25.8)
[2021-04-01] MEDS ORDERED: CALCIUM GLUCONATE 10% - 1,000 MG/10 ML VIAL ONE (04:22)
[2021-04-01] MEDS ORDERED: SODIUM ZIRCONIUM CYCLOSILICATE (LOKELMA) 5 GM PACKET ONE (04:23)
[2021-04-01] MEDS ORDERED: DEXTROSE 50%-WATER 25 GM/50 ML DISP.SYRIN ONE (04:23)
[2021-04-01 08:02] LABS: BASO % 0.5 % (0-2.0); EOS % 0.5 % (0-4.5); HEMATOCRIT 35.2 % (35.4-49); HEMOGLOBIN 11.8 GM/dL (11.7-16.9); LYMPH % 10.7 % (8-40); MCHC 33.5 g/dl (32.0-35.9); MEAN CELL VOLUME 92.5 fl (80-96); MEAN PLT VOLUME 6.4 fl (7.5-11.1); MONO % 10.9 % (3.8-10.2); NEUT % 77.4 % (42.8-82.8); PLATELET COUNT 302 10^3/uL (134-434); RBC 3.81 M/mm3 (4.00-5.60); RDW 13.9 % (11.9-15.9); WHITE BLOOD COUNT 11.8 K/mm3 (4.0-10.0)
[2021-04-01 08:19] LABS: ALBUMIN 2.3 g/dl (3.4-5.0); CALCIUM 9.5 mg/dL (8.5-10.1)
[2021-04-01 08:20] LABS: BLOOD UREA NITROGEN 79.1 mg/dL (7-18)
[2021-04-01 08:21] LABS: CREATININE 5.3 mg/dL (0.55-1.3)
[2021-04-01 08:23] LABS: BILIRUBIN,TOTAL 0.4 mg/dL (0.2-1)
[2021-04-01] MEDS ORDERED: PIPERACILLIN/TAZOB 2.25 GM 2.25 GM/50 ML BAG IVPB ONE ×2 (10:24→18:12)
[2021-04-01] MEDS ORDERED: HEPARIN NA (PORCINE) 5,000 UNITS/ML 1ML VIAL ONE ×2 (10:24→22:07)
[2021-04-01] MEDS: PIPERACILLIN/TAZOB 2.25 GM 2.25 GM in DEXTROSE 5%-WATER - 50 ML IVPB SCH ×2 (10:25→18:16)
[2021-04-01] MEDS: HEPARIN NA (PORCINE) 5,000 UNITS/ML 1ML VIAL SQ SCH ×2 (10:25→22:14)
[2021-04-01] MEDS ORDERED: TAMSULOSIN HCL 0.4 MG CAP PO ONE (11:50)
[2021-04-01] MEDS ORDERED: SODIUM CHLORIDE 1,000 ML IV SCH (12:00)
[2021-04-01] MEDS ORDERED: TAMSULOSIN HCL 0.4 MG CAP ONE ×2 (12:13→22:06)
[2021-04-01] MEDS ORDERED: clonazePAM 0.5 MG TABLET PO PRN (18:25)
[2021-04-01] MEDS ORDERED: ALPRAZolam 0.25 MG TABLET PO PRN (18:25)
[2021-04-01] MEDS: TAMSULOSIN HCL 0.4 MG CAP PO SCH (22:14)
[2021-04-01] MEDS: URSODIOL 300 MG CAPSULE PO SCH (22:43)
[2021-04-02] MEDS ORDERED: PIPERACILLIN/TAZOB 2.25 GM 2.25 GM/50 ML BAG IVPB ONE ×3 (02:35→16:53)
[2021-04-02] MEDS: PIPERACILLIN/TAZOB 2.25 GM 2.25 GM in DEXTROSE 5%-WATER - 50 ML IVPB SCH ×3 (02:47→17:34)
[2021-04-02 08:02] LABS: BASO % 0.6 % (0-2.0); EOS % 1.1 % (0-4.5); HEMATOCRIT 35.1 % (35.4-49); HEMOGLOBIN 11.8 GM/dL (11.7-16.9); LYMPH % 10.7 % (8-40); MCH 31.4 pg (25.7-33.7); MCHC 33.6 g/dl (32.0-35.9); MEAN CELL VOLUME 93.5 fl (80-96); MEAN PLT VOLUME 6.2 fl (7.5-11.1); MONO % 10.8 % (3.8-10.2); NEUT % 76.8 % (42.8-82.8); PLATELET COUNT 355 10^3/uL (134-434); RBC 3.75 M/mm3 (4.00-5.60); RDW 14.4 % (11.9-15.9); WHITE BLOOD COUNT 10.2 K/mm3 (4.0-10.0)
[2021-04-02 08:21] LABS: CALCIUM 9.5 mg/dL (8.5-10.1)
[2021-04-02 08:22] LABS: ALBUMIN 2.4 g/dl (3.4-5.0); MAGNESIUM 2.7 mg/dL (1.8-2.4)
[2021-04-02 08:25] LABS: CREATININE 1.4 mg/dL (0.55-1.3)
[2021-04-02 08:26] LABS: BILIRUBIN,TOTAL 0.4 mg/dL (0.2-1); BLOOD UREA NITROGEN 42.8 mg/dL (7-18); TOT PROT 6.2 g/dl (6.4-8.2)
[2021-04-02] MEDS ORDERED: TAMSULOSIN HCL 0.4 MG CAP PO SCH (08:30)
[2021-04-02] MEDS ORDERED: HEPARIN NA (PORCINE) 5,000 UNITS/ML 1ML VIAL ONE (09:18)
[2021-04-02] MEDS ORDERED: TAMSULOSIN HCL 0.4 MG CAP ONE (09:18)
[2021-04-02] MEDS ORDERED: ASPIRIN COATED 81 MG TABLET.EC ONE (09:18)
[2021-04-02] MEDS ORDERED: PT OWN MED DRAWER 7, Y5N ONE ×3 (09:19→12:57)
[2021-04-02] MEDS ORDERED: ACETAMINOPHEN 325 MG TABLET (FP) ONE (09:29)
[2021-04-02] MEDS: URSODIOL 300 MG CAPSULE PO SCH ×2 (09:45→23:33)
[2021-04-02] MEDS: ASPIRIN COATED 81 MG TABLET.EC PO SCH (09:45)
[2021-04-02] MEDS: TAMSULOSIN HCL 0.4 MG CAP PO SCH ×2 (09:45→23:17)
[2021-04-02] MEDS: ACETAMINOPHEN 325 MG TABLET (FP) PO PRN (09:46)
[2021-04-02] MEDS: HEPARIN NA (PORCINE) 5,000 UNITS/ML 1ML VIAL SQ SCH ×2 (09:46→23:25)
[2021-04-02] MEDS ORDERED: PIPERACILLIN/TAZOB 2.25 GM 2.25 GM in DEXTROSE 5%-WATER - 50 ML IVPB SCH (10:00)
[2021-04-02] MEDS ORDERED: CEFTRIAXONE 1,000 MG in DEXTROSE 5%-WATER - 50 ML IVPB SCH (10:00)
[2021-04-02] MEDS ORDERED: METOPROLOL TARTRATE 25 MG TABLET (FP) ONE (12:57)
[2021-04-02] MEDS: METOPROLOL TARTRATE 25 MG TABLET (FP) PO SCH ×2 (13:04→23:17)
[2021-04-02] MEDS: FINASTERIDE 5 MG TABLET (FP) PO SCH (13:04)
[2021-04-02] MEDS ORDERED: ALPRAZolam 0.25 MG TABLET ONE (13:09)
[2021-04-02] MEDS ORDERED: VANCOMYCIN 1 GM in D5W (PRE-DOCKED) 1,000 MG/250 ML IVPB ONE (16:25)
[2021-04-02] MEDS ORDERED: VANCOMYCIN 1 GRAM (PRE-DOCKED) 1,000 MG/250 ML BAG IVPB ONE (16:54)
[2021-04-02] MEDS ORDERED: DEXTROSE 5%-WATER - 50 ML IVPB ONE (23:13)
[2021-04-02] MEDS ORDERED: PIPERACILLIN/TAZOBACTAM 2.25 GM VIAL IVPB ONE (23:13)
[2021-04-03] MEDS: PIPERACILLIN/TAZOB 2.25 GM 2.25 GM in DEXTROSE 5%-WATER - 50 ML IVPB SCH ×3 (01:28→18:48)
[2021-04-03] MEDS ORDERED: PT OWN MED DRAWER 7, Y5N ONE ×2 (09:17→21:32)
[2021-04-03] MEDS ORDERED: PIPERACILLIN/TAZOBACTAM 2.25 GM VIAL IVPB ONE ×3 (09:17→21:32)
[2021-04-03] MEDS ORDERED: DEXTROSE 5%-WATER - 50 ML IVPB ONE ×3 (09:17→21:33)
[2021-04-03] MEDS: URSODIOL 300 MG CAPSULE PO SCH ×2 (09:23→22:43)
[2021-04-03] MEDS: ACETAMINOPHEN 325 MG TABLET (FP) PO PRN (09:23)
[2021-04-03] MEDS: METOPROLOL TARTRATE 25 MG TABLET (FP) PO SCH ×2 (09:23→21:52)
[2021-04-03] MEDS: ASPIRIN COATED 81 MG TABLET.EC PO SCH (09:23)
[2021-04-03] MEDS: TAMSULOSIN HCL 0.4 MG CAP PO SCH ×2 (09:23→21:52)
[2021-04-03] MEDS: FINASTERIDE 5 MG TABLET (FP) PO SCH (09:23)
[2021-04-03] MEDS: HEPARIN NA (PORCINE) 5,000 UNITS/ML 1ML VIAL SQ SCH ×2 (09:25→21:52)
[2021-04-03 09:27] LABS: BASO % 1.1 % (0-2.0); EOS % 4.3 % (0-4.5); HEMATOCRIT 36.1 % (35.4-49); HEMOGLOBIN 12.1 GM/dL (11.7-16.9); LYMPH % 13.6 % (8-40); MCH 31.4 pg (25.7-33.7); MCHC 33.5 g/dl (32.0-35.9); MEAN CELL VOLUME 93.6 fl (80-96); MEAN PLT VOLUME 6.1 fl (7.5-11.1); PLATELET COUNT 354 10^3/uL (134-434); RBC 3.85 M/mm3 (4.00-5.60); RDW 14.4 % (11.9-15.9); WHITE BLOOD COUNT 9.1 K/mm3 (4.0-10.0)
[2021-04-03 09:41] LABS: CHLORIDE 108 mmol/L (98-107); SODIUM 145 mmol/L (136-145)
[2021-04-03 09:43] LABS: CALCIUM 9.7 mg/dL (8.5-10.1)
[2021-04-03 09:44] LABS: ALBUMIN 2.4 g/dl (3.4-5.0); ANION GAP 6 MMOL/L (8-16); BLOOD UREA NITROGEN 26.4 mg/dL (7-18); CO2 30 mmol/L (21-32); GLUCOSE,RANDOM 110 mg/dL (74-106); MAGNESIUM 2.3 mg/dL (1.8-2.4)
[2021-04-03 09:47] LABS: CREATININE 0.7 mg/dL (0.55-1.3); SGOT/AST 31 U/L (15-37); SGPT/ALT 10 U/L (13-61)
[2021-04-03 09:48] LABS: BILIRUBIN,TOTAL 0.4 mg/dL (0.2-1)
[2021-04-03 09:50] LABS: ALK PHOS 83 U/L (45-117)
[2021-04-03] MEDS: FUROSEMIDE 20 MG TABLET (FP) PO SCH (15:22)
[2021-04-03 22:49] LABS: CHOLESTEROL 142 mg/dL (50-200); TRIGLYCERIDES 171 mg/dL (0-150)
[2021-04-03 22:50] LABS: LDL CHOLESTEROL (ONLY SJRH) 77 mg/dL (5-100)
[2021-04-03 22:51] LABS: HDL CHOLESTEROL 33 mg/dL (40-60)
[2021-04-03 22:53] LABS: N-TERMINAL BNP 551.5 pg/ml (5-450)
[2021-04-04] MEDS: PIPERACILLIN/TAZOB 2.25 GM 2.25 GM in DEXTROSE 5%-WATER - 50 ML IVPB SCH (02:38)
[2021-04-04 08:09] LABS: PHOSPHOROUS 3.4 mg/dL (2.5-4.9)
[2021-04-04 08:39] LABS: BASO % 0.6 % (0-2.0); EOS % 3.8 % (0-4.5); HEMATOCRIT 37.5 % (35.4-49); HEMOGLOBIN 12.4 GM/dL (11.7-16.9); LYMPH % 16.2 % (8-40); MCH 30.9 pg (25.7-33.7); MCHC 32.9 g/dl (32.0-35.9); MEAN CELL VOLUME 93.9 fl (80-96); MEAN PLT VOLUME 6.1 fl (7.5-11.1); MONO % 10.8 % (3.8-10.2); NEUT % 68.6 % (42.8-82.8); PLATELET COUNT 338 10^3/uL (134-434); RDW 14.3 % (11.9-15.9); WHITE BLOOD COUNT 9.6 K/mm3 (4.0-10.0)
[2021-04-04 08:58] LABS: CALCIUM 9.3 mg/dL (8.5-10.1)
[2021-04-04 08:59] LABS: BLOOD UREA NITROGEN 22.7 mg/dL (7-18); MAGNESIUM 2.1 mg/dL (1.8-2.4)
[2021-04-04 09:02] LABS: CREATININE 0.6 mg/dL (0.55-1.3); PHOSPHOROUS 3.4 mg/dL (2.5-4.9)
[2021-04-04] MEDS ORDERED: PIPERACILLIN/TAZOBACTAM 3.375 GM VIAL IVPB ONE ×2 (09:11→17:39)
[2021-04-04] MEDS ORDERED: DEXTROSE 5%-WATER - 50 ML IVPB ONE ×2 (09:11→17:40)
[2021-04-04] MEDS: FUROSEMIDE 20 MG TABLET (FP) PO SCH (10:14)
[2021-04-04] MEDS: TAMSULOSIN HCL 0.4 MG CAP PO SCH ×2 (10:14→21:44)
[2021-04-04] MEDS: ASPIRIN COATED 81 MG TABLET.EC PO SCH (10:14)
[2021-04-04] MEDS: URSODIOL 300 MG CAPSULE PO SCH ×2 (10:14→21:44)
[2021-04-04] MEDS: FINASTERIDE 5 MG TABLET (FP) PO SCH (10:14)
[2021-04-04] MEDS: HEPARIN NA (PORCINE) 5,000 UNITS/ML 1ML VIAL SQ SCH ×2 (10:14→21:44)
[2021-04-04] MEDS: METOPROLOL TARTRATE 25 MG TABLET (FP) PO SCH ×2 (10:14→21:44)
[2021-04-04] MEDS: PIPERACILLIN/TAZOB 3.375 GM 3.375 GM in DEXTROSE 5%-WATER - 50 ML IVPB SCH ×2 (10:15→17:46)
[2021-04-05] MEDS ORDERED: PIPERACILLIN/TAZOBACTAM 3.375 GM VIAL IVPB ONE ×3 (00:55→16:50)
[2021-04-05] MEDS ORDERED: DEXTROSE 5%-WATER - 50 ML IVPB ONE ×3 (00:56→16:51)
[2021-04-05] MEDS: PIPERACILLIN/TAZOB 3.375 GM 3.375 GM in DEXTROSE 5%-WATER - 50 ML IVPB SCH ×3 (00:59→17:13)
[2021-04-05] MEDS: TAMSULOSIN HCL 0.4 MG CAP PO SCH ×2 (09:15→23:34)
[2021-04-05] MEDS: METOPROLOL TARTRATE 25 MG TABLET (FP) PO SCH ×2 (09:15→23:33)
[2021-04-05] MEDS: FINASTERIDE 5 MG TABLET (FP) PO SCH (09:15)
[2021-04-05] MEDS: FUROSEMIDE 20 MG TABLET (FP) PO SCH (09:15)
[2021-04-05] MEDS: ASPIRIN COATED 81 MG TABLET.EC PO SCH (09:15)
[2021-04-05] MEDS: HEPARIN NA (PORCINE) 5,000 UNITS/ML 1ML VIAL SQ SCH ×2 (09:15→23:34)
[2021-04-05] MEDS: URSODIOL 300 MG CAPSULE PO SCH ×2 (09:30→23:34)
[2021-04-05] MEDS: FAMOTIDINE 20 MG TABLET PO SCH (11:23)
[2021-04-05 13:08] LABS: BLOOD UREA NITROGEN 20.7 mg/dL (7-18); CALCIUM 8.7 mg/dL (8.5-10.1); MAGNESIUM 1.9 mg/dL (1.8-2.4)
[2021-04-05 13:12] LABS: CREATININE 1.1 mg/dL (0.55-1.3)
[2021-04-05] MEDS: ACETAMINOPHEN 325 MG TABLET (FP) PO PRN (20:51)
[2021-04-06] MEDS ORDERED: DEXTROSE 5%-WATER - 50 ML IVPB ONE ×3 (01:58→17:29)
[2021-04-06] MEDS ORDERED: PIPERACILLIN/TAZOBACTAM 3.375 GM VIAL IVPB ONE ×3 (01:58→17:29)
[2021-04-06] MEDS: PIPERACILLIN/TAZOB 3.375 GM 3.375 GM in DEXTROSE 5%-WATER - 50 ML IVPB SCH ×3 (02:14→18:02)
[2021-04-06 07:20] LABS: HEMATOCRIT 32.6 % (35.4-49); MCH 31.3 pg (25.7-33.7); MCHC 33.6 g/dl (32.0-35.9); MEAN CELL VOLUME 93.3 fl (80-96); MEAN PLT VOLUME 6.1 fl (7.5-11.1); PLATELET COUNT 314 10^3/uL (134-434); RDW 14.2 % (11.9-15.9); WHITE BLOOD COUNT 11.2 K/mm3 (4.0-10.0)
[2021-04-06 08:10] LABS: CALCIUM 8.8 mg/dL (8.5-10.1)
[2021-04-06 08:14] LABS: CREATININE 2.1 mg/dL (0.55-1.3)
[2021-04-06 08:15] LABS: BILIRUBIN,TOTAL 0.7 mg/dL (0.2-1); TOT PROT 5.7 g/dl (6.4-8.2)
[2021-04-06] MEDS ORDERED: PT OWN MED DRAWER 7, Y5N ONE (09:37)
[2021-04-06] MEDS: FAMOTIDINE 20 MG TABLET PO SCH (10:02)
[2021-04-06] MEDS: FUROSEMIDE 20 MG TABLET (FP) PO SCH (10:02)
[2021-04-06] MEDS: FINASTERIDE 5 MG TABLET (FP) PO SCH (10:02)
[2021-04-06] MEDS: HEPARIN NA (PORCINE) 5,000 UNITS/ML 1ML VIAL SQ SCH (10:02)
[2021-04-06] MEDS: METOPROLOL TARTRATE 25 MG TABLET (FP) PO SCH (10:02)
[2021-04-06] MEDS: ASPIRIN COATED 81 MG TABLET.EC PO SCH (10:02)
[2021-04-06] MEDS: URSODIOL 300 MG CAPSULE PO SCH (10:02)
[2021-04-06] MEDS: TAMSULOSIN HCL 0.4 MG CAP PO SCH (10:02)
[2021-04-06 10:20] LABS: ANISOCYTOSIS 1+; MACROCYTOSIS 0; OVALOCYTE 1+; PLATELET ESTIMATE NORMAL; TOXIC GRANULATION 2+
[2021-04-06] MEDS ORDERED: SODIUM CHLORIDE 0.45% IV SCH (11:00)
[2021-04-06] MEDS: SODIUM CHLORIDE 0.45% 1,000 ML IV SCH (12:16)
[2021-04-06] MEDS ORDERED: LIDOCAINE HCL 2% JELLY 10 ML CARTRIDGE PR ONE (21:24)
[2021-04-07] MEDS: HEPARIN NA (PORCINE) 5,000 UNITS/ML 1ML VIAL SQ SCH ×3 (00:09→22:06)
[2021-04-07] MEDS: TAMSULOSIN HCL 0.4 MG CAP PO SCH ×3 (00:10→22:05)
[2021-04-07] MEDS: URSODIOL 300 MG CAPSULE PO SCH ×3 (00:10→22:05)
[2021-04-07] MEDS: METOPROLOL TARTRATE 25 MG TABLET (FP) PO SCH ×3 (00:12→22:05)
[2021-04-07] MEDS ORDERED: PIPERACILLIN/TAZOBACTAM 3.375 GM VIAL IVPB ONE ×3 (01:03→16:16)
[2021-04-07] MEDS ORDERED: DEXTROSE 5%-WATER - 50 ML IVPB ONE ×3 (01:04→16:16)
[2021-04-07] MEDS: PIPERACILLIN/TAZOB 3.375 GM 3.375 GM in DEXTROSE 5%-WATER - 50 ML IVPB SCH ×3 (03:56→17:11)
[2021-04-07 07:06] LABS: BASO % 0.6 % (0-2.0); EOS % 4.9 % (0-4.5); HEMOGLOBIN 10.8 GM/dL (11.7-16.9); LYMPH % 14.1 % (8-40); MCH 31.3 pg (25.7-33.7); MCHC 32.8 g/dl (32.0-35.9); MEAN CELL VOLUME 95.3 fl (80-96); MEAN PLT VOLUME 6.1 fl (7.5-11.1); NEUT % 69.4 % (42.8-82.8); PLATELET COUNT 312 10^3/uL (134-434); RBC 3.46 M/mm3 (4.00-5.60); RDW 14.3 % (11.9-15.9); WHITE BLOOD COUNT 8.9 K/mm3 (4.0-10.0)
[2021-04-07 07:26] LABS: CALCIUM 8.7 mg/dL (8.5-10.1)
[2021-04-07 07:27] LABS: ALBUMIN 1.9 g/dl (3.4-5.0); BLOOD UREA NITROGEN 27.6 mg/dL (7-18)
[2021-04-07 07:31] LABS: BILIRUBIN,TOTAL 0.4 mg/dL (0.2-1)
[2021-04-07 07:32] LABS: TOT PROT 5.2 g/dl (6.4-8.2)
[2021-04-07] MEDS: FINASTERIDE 5 MG TABLET (FP) PO SCH (10:22)
[2021-04-07] MEDS: FUROSEMIDE 20 MG TABLET (FP) PO SCH (10:22)
[2021-04-07] MEDS: FAMOTIDINE 20 MG TABLET PO SCH (10:22)
[2021-04-07] MEDS: ASPIRIN COATED 81 MG TABLET.EC PO SCH (10:22)
[2021-04-07] MEDS: SODIUM CHLORIDE 0.45% 1,000 ML IV SCH (10:23)
[2021-04-07] MEDS ORDERED: ACETAMINOPHEN 325 MG TABLET (FP) PO PRN (16:01)
[2021-04-08] MEDS ORDERED: PIPERACILLIN/TAZOBACTAM 3.375 GM VIAL IVPB ONE ×2 (00:59→09:00)
[2021-04-08] MEDS ORDERED: DEXTROSE 5%-WATER - 50 ML IVPB ONE ×2 (00:59→09:00)
[2021-04-08] MEDS: PIPERACILLIN/TAZOB 3.375 GM 3.375 GM in DEXTROSE 5%-WATER - 50 ML IVPB SCH ×2 (01:09→09:15)
[2021-04-08] MEDS ORDERED: PT OWN MED DRAWER 7, Y5N ONE (09:00)
[2021-04-08] MEDS: ASPIRIN COATED 81 MG TABLET.EC PO SCH (09:15)
[2021-04-08] MEDS: FINASTERIDE 5 MG TABLET (FP) PO SCH (09:15)
[2021-04-08] MEDS: METOPROLOL TARTRATE 25 MG TABLET (FP) PO SCH ×2 (09:15→21:02)
[2021-04-08] MEDS: TAMSULOSIN HCL 0.4 MG CAP PO SCH ×2 (09:15→21:02)
[2021-04-08] MEDS: URSODIOL 300 MG CAPSULE PO SCH ×2 (09:16→21:02)
[2021-04-08] MEDS: HEPARIN NA (PORCINE) 5,000 UNITS/ML 1ML VIAL SQ SCH ×2 (09:16→21:02)
[2021-04-08] MEDS: FAMOTIDINE 20 MG TABLET PO SCH (09:30)
[2021-04-09] MEDS ORDERED: PT OWN MED DRAWER 7, Y5N ONE (09:26)
[2021-04-09] MEDS: HEPARIN NA (PORCINE) 5,000 UNITS/ML 1ML VIAL SQ SCH (09:31)
[2021-04-09] MEDS: ASPIRIN COATED 81 MG TABLET.EC PO SCH (09:33)
[2021-04-09] MEDS: FINASTERIDE 5 MG TABLET (FP) PO SCH (09:33)
[2021-04-09] MEDS: TAMSULOSIN HCL 0.4 MG CAP PO SCH (09:33)
[2021-04-09] MEDS: FAMOTIDINE 20 MG TABLET PO SCH (09:33)
[2021-04-09] MEDS: METOPROLOL TARTRATE 25 MG TABLET (FP) PO SCH (09:37)
[2021-04-09] MEDS: URSODIOL 300 MG CAPSULE PO SCH (10:34)
[2021-04-09 14:12] VITALS: BP 121/60; PULSE 80; TEMP 98.3
== END 2021-04-09 19:18 | DRG 726 ==
LOC: JER 22:26 → JERBED 04-01 03:55 → J4W 04-02 21:44 → J8W 04-07 15:57
PROVIDERS: ADMIT Internal Medicine; ATTEND Internal Medicine
DX: N40.1 Benign prostatic hyperplasia with lower urinary tract symptoms (principal); N17.9 Acute kidney failure, unspecified; N13.8 Other obstructive and reflux uropathy; E87.1 Hypo-osmolality and hyponatremia; C22.1 Intrahepatic bile duct carcinoma; E87.5 Hyperkalemia; K21.9 Gastro-esophageal reflux disease without esophagitis; N47.1 Phimosis; R31.9 Hematuria, unspecified; E87.6 Hypokalemia; E78.5 Hyperlipidemia, unspecified; I10 Essential (primary) hypertension; R31.0 Gross hematuria; E11.9 Type 2 diabetes mellitus without complications; J44.9 Chronic obstructive pulmonary disease, unspecified; D64.9 Anemia, unspecified; N28.1 Cyst of kidney, acquired; D72.829 Elevated white blood cell count, unspecified; E66.9 Obesity, unspecified; Z68.39 Body mass index [BMI] 39.0-39.9, adult
CPT/HCPCS: 36415; 70450-TC; 71045-TC-FY; 74176-TC; 80048; 80053; 80061; 81003; 82550; 82803; 82962; 83036; 83605; 83690; 83735; 83880; 84100; 84439; 84443; 84484; 85025; 85610; 85730; 87040; 93005; 93010; 93306-TC; 99285-25; C9803; J0131; J1644; U0003; U0005

== ENCOUNTER 2021-05-30 11:16 | Inpatient (IN) | payer OTHER ==
[2021-05-30] MEDS ORDERED: SODIUM CHLORIDE 1,000 ML IV ONE ×2 (11:33→12:07)
[2021-05-30 11:59] LABS: VENOUS BASE EXCESS -8.8 mmol/L (-2-2); VENOUS O2 SATURATION 15.4 % (70-80); VENOUS PCO2 45.2 mmHg (38-52); VENOUS PH 7.23 (7.310-7.410)
[2021-05-30] MEDS ORDERED: VANCOMYCIN 1,000 MG in DEXTROSE 5%-WATER - 250 ML IVPB ONE (12:02)
[2021-05-30] MEDS ORDERED: PIPERACILLIN/TAZOB 4.5 GM 4.5 GM in DEXTROSE 5%-WATER 100 ML IVPB ONE (12:02)
[2021-05-30] MEDS ORDERED: PIPERACILLIN/TAZOB 4.5 GM 4.5 GM/100 ML BAG IVPB ONE (12:08)
[2021-05-30] MEDS ORDERED: VANCOMYCIN 1 GRAM (PRE-DOCKED) 1,000 MG/250 ML BAG IVPB ONE (12:08)
[2021-05-30 12:31] LABS: BASO % 0.3 % (0-2.0); EOS % 0.9 % (0-4.5); HEMATOCRIT 30.3 % (35.4-49); HEMOGLOBIN 9.6 GM/dL (11.7-16.9); LYMPH % 6.7 % (8-40); MCH 30.1 pg (25.7-33.7); MCHC 31.6 g/dl (32.0-35.9); MEAN CELL VOLUME 95.5 fl (80-96); MEAN PLT VOLUME 7.5 fl (7.5-11.1); MONO % 9.2 % (3.8-10.2); NEUT % 82.9 % (42.8-82.8); PLATELET COUNT 233 10^3/uL (134-434); RBC 3.17 M/mm3 (4.00-5.60); RDW 16.5 % (11.9-15.9); WHITE BLOOD COUNT 13.7 K/mm3 (4.0-10.0)
[2021-05-30 12:37] LABS: CHLORIDE 126 mmol/L (98-107); SODIUM 154 mmol/L (136-145)
[2021-05-30 12:39] LABS: CALCIUM 9.6 mg/dL (8.5-10.1)
[2021-05-30 12:40] LABS: ALBUMIN 2.3 g/dl (3.4-5.0); CO2 19 mmol/L (21-32); GLUCOSE,RANDOM 112 mg/dL (74-106)
[2021-05-30 12:43] LABS: CREATININE 5.9 mg/dL (0.55-1.3); SGOT/AST 20 U/L (15-37); SGPT/ALT 6 U/L (13-61)
[2021-05-30 12:44] LABS: BILIRUBIN,TOTAL 0.9 mg/dL (0.2-1); TOT PROT 6.4 g/dl (6.4-8.2)
[2021-05-30 12:46] LABS: ALK PHOS 137 U/L (45-117)
[2021-05-30 12:58] LABS: ANION GAP 9 MMOL/L (8-16); BLOOD UREA NITROGEN 140.5 mg/dL (7-18)
[2021-05-30 13:02] LABS: LACTIC ACID 2.3 mmol/L (0.4-2.0)
[2021-05-30] MEDS ORDERED: ACETAMINOPHEN 1000 MG/100 ML BAG IVPB ONE (13:04)
[2021-05-30] MEDS ORDERED: DEXTROSE 50%-WATER - 25 GM/50 ML VIAL IVPUSH ONE (13:12)
[2021-05-30] MEDS ORDERED: INSULIN REGULAR HUMAN 100 UNITS/ML *VIAL IVPUSH ONE (13:12)
[2021-05-30] MEDS ORDERED: ALBUTEROL SO4 0.042% IH SOL 1.25 MG/3 ML VIAL.NEB NEB ONE (13:14)
[2021-05-30] MEDS ORDERED: ALBUTEROL SO4 0.083% IH SOL 2.5 MG/3 ML VIAL.NEB. NEB ONE ×2 (13:43→14:40)
[2021-05-30] MEDS ORDERED: ACETAMINOPHEN INJECTION 100 ML IVPB ONE (13:44)
[2021-05-30] MEDS ORDERED: SODIUM ZIRCONIUM CYCLOSILICATE (LOKELMA) 5 GM PACKET ONE (13:44)
[2021-05-30] MEDS ORDERED: DEXTROSE 10%-WATER - 1,000 ML IV SCH (13:45)
[2021-05-30] MEDS ORDERED: INSULIN REGULAR HUMAN 100 UNITS/ML *VIAL ONE (13:46)
[2021-05-30] MEDS: SODIUM ZIRCONIUM CYCLOSILICATE (LOKELMA) 5 GM PACKET PO SCH (14:52)
[2021-05-30] MEDS: ENOXAPARIN NA (PORCINE) 120 MG/0.8 ML DISP.SYRIN SQ SCH (16:46)
[2021-05-30] MEDS ORDERED: ENOXAPARIN NA (PORCINE) 60 MG/0.6 ML DISP.SYRIN SQ ONE (16:46)
[2021-05-30 17:19] LABS: CHLORIDE 127 mmol/L (98-107); SODIUM 155 mmol/L (136-145)
[2021-05-30 17:21] LABS: ANION GAP 7 MMOL/L (8-16); CALCIUM 9.1 mg/dL (8.5-10.1); CO2 20 mmol/L (21-32); GLUCOSE,RANDOM 161 mg/dL (74-106)
[2021-05-30 17:25] LABS: CREATININE 5.6 mg/dL (0.55-1.3)
[2021-05-30 17:28] LABS: BLOOD UREA NITROGEN 131.6 mg/dL (7-18)
[2021-05-30 18:10] LABS: EPI CELLS 18 /uL (0-25.1); HYALINE CASTS 0 /uL (0-3.1); PH,URINE 5.5 (5.0-8.0); URINE APPEARANCE TURBID; URINE BACTERIA 174 /uL (0-1359); URINE BILIRUBIN NEGATIVE (NEGATIVE); URINE COLOR YELLOW; URINE GLUCOSE (UA) NEGATIVE (NEGATIVE); URINE KETONE TRACE (NEGATIVE); URINE LEUK ESTERASE 3+ (NEGATIVE); URINE NITRITE NEGATIVE (NEGATIVE); URINE PROTEIN 3+ (NEGATIVE); URINE RBC 0 /uL (0-23.9); URINE UROBILINOGEN 0.2 mg/dL (0.2-1.0); URINE WBC 5 /uL (0-25.8)
[2021-05-30] MEDS ORDERED: PIPERACILLIN/TAZOB 2.25 GM 2.25 GM in DEXTROSE 5%-WATER - 50 ML IVPB SCH (21:00)
[2021-05-30] MEDS ORDERED: PIPERACILLIN/TAZOB 2.25 GM 2.25 GM/50 ML BAG IVPB ONE (21:23)
[2021-05-30] MEDS ORDERED: MUPIROCIN 2% TOPICAL OINTMENT FOR DECOLONIZATION NS SCH ×2 (22:00)
[2021-05-30] MEDS ORDERED: CHLORHEXIDINE GLUCONATE 4% CLEANSER FOR DECOLONIZATION TP SCH (22:00)
[2021-05-31] MEDS: SODIUM CHLORIDE 1,000 ML IV SCH ×2 (01:17→23:00)
[2021-05-31] MEDS ORDERED: PIPERACILLIN/TAZOBACTAM 2.25 GM VIAL IVPB ONE ×4 (02:59→15:59)
[2021-05-31] MEDS ORDERED: DEXTROSE 5%-WATER - 50 ML IVPB ONE ×4 (02:59→15:59)
[2021-05-31] MEDS: PIPERACILLIN/TAZOB 2.25 GM 2.25 GM in DEXTROSE 5%-WATER - 50 ML IVPB SCH ×3 (03:00→16:45)
[2021-05-31 09:05] LABS: HEMOGLOBIN 8.7 GM/dL (11.7-16.9); MCH 29.6 pg (25.7-33.7); MCHC 31.3 g/dl (32.0-35.9); MEAN CELL VOLUME 94.8 fl (80-96); MEAN PLT VOLUME 7.1 fl (7.5-11.1); PLATELET COUNT 181 10^3/uL (134-434); RBC 2.95 M/mm3 (4.00-5.60); RDW 16.4 % (11.9-15.9); WHITE BLOOD COUNT 11.1 K/mm3 (4.0-10.0)
[2021-05-31 09:15] LABS: CHLORIDE 130 mmol/L (98-107); SODIUM 157 mmol/L (136-145)
[2021-05-31 09:21] LABS: CALCIUM 8.8 mg/dL (8.5-10.1)
[2021-05-31 09:22] LABS: ALBUMIN 1.9 g/dl (3.4-5.0); ANION GAP 7 MMOL/L (8-16); CO2 20 mmol/L (21-32); GLUCOSE,RANDOM 116 mg/dL (74-106)
[2021-05-31 09:25] LABS: CREATININE 5.4 mg/dL (0.55-1.3); SGOT/AST 17 U/L (15-37)
[2021-05-31 09:27] LABS: BILIRUBIN,TOTAL 0.7 mg/dL (0.2-1); TOT PROT 5.5 g/dl (6.4-8.2)
[2021-05-31 09:29] LABS: ALK PHOS 101 U/L (45-117); BLOOD UREA NITROGEN 125.9 mg/dL (7-18); SGPT/ALT < 6 U/L (13-61)
[2021-05-31] MEDS: SODIUM ZIRCONIUM CYCLOSILICATE (LOKELMA) 5 GM PACKET PO SCH (10:28)
[2021-05-31 10:37] LABS: ANISOCYTOSIS 0; MACROCYTOSIS 1+
[2021-05-31] MEDS ORDERED: ACETAMINOPHEN 1000 MG/100 ML BAG IVPB PRN (12:29)
[2021-05-31] MEDS ORDERED: VANCOMYCIN/WATER 1,250 MG/250 ML BAG IVPB SCH (14:00)
[2021-05-31 16:28] LABS: HEMATOCRIT 28.6 % (35.4-49); HEMOGLOBIN 8.7 GM/dL (11.7-16.9); MCH 29.3 pg (25.7-33.7); MCHC 30.2 g/dl (32.0-35.9); MEAN CELL VOLUME 96.9 fl (80-96); MEAN PLT VOLUME 7.3 fl (7.5-11.1); PLATELET COUNT 183 10^3/uL (134-434); RBC 2.95 M/mm3 (4.00-5.60); RDW 17.2 % (11.9-15.9); WHITE BLOOD COUNT 13.2 K/mm3 (4.0-10.0)
[2021-05-31] MEDS: ENOXAPARIN NA (PORCINE) 120 MG/0.8 ML DISP.SYRIN SQ SCH (18:01)
[2021-05-31] MEDS ORDERED: PIPERACILLIN/TAZOB 2.25 GM 2.25 GM in DEXTROSE 5%-WATER - 50 ML IVPB SCH (21:00)
[2021-06-01] MEDS ORDERED: PIPERACILLIN/TAZOBACTAM 2.25 GM VIAL IVPB ONE ×2 (09:40→17:20)
[2021-06-01] MEDS ORDERED: DEXTROSE 5%-WATER - 50 ML IVPB ONE ×2 (09:40→17:20)
[2021-06-01] MEDS: PIPERACILLIN/TAZOB 2.25 GM 2.25 GM in DEXTROSE 5%-WATER - 50 ML IVPB SCH ×2 (09:51→17:44)
[2021-06-01] MEDS: METOPROLOL TARTRATE 25 MG TABLET (FP) PO SCH ×2 (11:37→21:20)
[2021-06-01] MEDS: SODIUM ZIRCONIUM CYCLOSILICATE (LOKELMA) 5 GM PACKET PO SCH (11:37)
[2021-06-01 12:34] LABS: HEMATOCRIT 29.7 % (35.4-49); HEMOGLOBIN 9.2 GM/dL (11.7-16.9); MCH 29.3 pg (25.7-33.7); MEAN CELL VOLUME 94.6 fl (80-96); MEAN PLT VOLUME 7.5 fl (7.5-11.1); PLATELET COUNT 220 10^3/uL (134-434); RBC 3.14 M/mm3 (4.00-5.60); RDW 16.5 % (11.9-15.9); WHITE BLOOD COUNT 9.7 K/mm3 (4.0-10.0)
[2021-06-01 12:45] LABS: CHLORIDE 135 mmol/L (98-107)
[2021-06-01 12:48] LABS: CALCIUM 8.9 mg/dL (8.5-10.1)
[2021-06-01 12:49] LABS: CO2 19 mmol/L (21-32); GLUCOSE,RANDOM 154 mg/dL (74-106)
[2021-06-01 12:52] LABS: ANION GAP 8 MMOL/L (8-16); BLOOD UREA NITROGEN 109.5 mg/dL (7-18); CREATININE 3.8 mg/dL (0.55-1.3); SODIUM 162 mmol/L (136-145)
[2021-06-01] MEDS ORDERED: SODIUM CHLORIDE 0.45% 1,000 ML IV SCH (13:15)
[2021-06-01] MEDS: ENOXAPARIN NA (PORCINE) 120 MG/0.8 ML DISP.SYRIN SQ SCH (14:30)
[2021-06-02] MEDS ORDERED: DEXTROSE 5%-WATER - 50 ML IVPB ONE ×3 (02:51→17:52)
[2021-06-02] MEDS ORDERED: PIPERACILLIN/TAZOBACTAM 2.25 GM VIAL IVPB ONE ×3 (02:51→17:52)
[2021-06-02] MEDS: PIPERACILLIN/TAZOB 2.25 GM 2.25 GM in DEXTROSE 5%-WATER - 50 ML IVPB SCH ×3 (02:55→18:00)
[2021-06-02 07:47] LABS: HEMATOCRIT 28.5 % (35.4-49); HEMOGLOBIN 9.1 GM/dL (11.7-16.9); MCHC 32.1 g/dl (32.0-35.9); MEAN CELL VOLUME 93.5 fl (80-96); MEAN PLT VOLUME 7.4 fl (7.5-11.1); PLATELET COUNT 218 10^3/uL (134-434); RBC 3.04 M/mm3 (4.00-5.60); RDW 16.6 % (11.9-15.9); WHITE BLOOD COUNT 9.8 K/mm3 (4.0-10.0)
[2021-06-02 08:05] LABS: CHLORIDE 136 mmol/L (98-107)
[2021-06-02 08:12] LABS: ALBUMIN 1.9 g/dl (3.4-5.0); CALCIUM 8.9 mg/dL (8.5-10.1); CO2 20 mmol/L (21-32); GLUCOSE,RANDOM 121 mg/dL (74-106)
[2021-06-02 08:13] LABS: BLOOD UREA NITROGEN 92.9 mg/dL (7-18)
[2021-06-02 08:15] LABS: CREATININE 2.6 mg/dL (0.55-1.3); SGPT/ALT < 6 U/L (13-61)
[2021-06-02 08:16] LABS: SGOT/AST 16 U/L (15-37)
[2021-06-02 08:17] LABS: BILIRUBIN,TOTAL 0.5 mg/dL (0.2-1); TOT PROT 5.6 g/dl (6.4-8.2)
[2021-06-02 08:18] LABS: ALK PHOS 104 U/L (45-117)
[2021-06-02 08:24] LABS: ANION GAP 8 MMOL/L (8-16); SODIUM 163 mmol/L (136-145)
[2021-06-02 08:49] LABS: ANISOCYTOSIS 0; HELMET CELLS 0; HOWELL-JOLLY BODIES 0; MACROCYTOSIS 0; OVALOCYTE 0; ROULEAU 0; SICKELED CELLS 0; TARGET CELLS 0; TEAR DROP CELLS 0; TOXIC GRANULATION 0
[2021-06-02] MEDS: SODIUM ZIRCONIUM CYCLOSILICATE (LOKELMA) 5 GM PACKET PO SCH (09:06)
[2021-06-02] MEDS: METOPROLOL TARTRATE 25 MG TABLET (FP) PO SCH ×2 (09:13→21:43)
[2021-06-02] MEDS ORDERED: POTASSIUM CHLORIDE ORAL LIQUID 20 MEQ/15 ML PO ONE ×2 (13:30→13:45)
[2021-06-02] MEDS: POTASSIUM CHLORIDE 10 MEQ in DEXTROSE 5%-WATER - 1,000 ML IV SCH (14:30)
[2021-06-02] MEDS: ENOXAPARIN NA (PORCINE) 120 MG/0.8 ML DISP.SYRIN SQ SCH (14:47)
[2021-06-03] MEDS ORDERED: PIPERACILLIN/TAZOBACTAM 2.25 GM VIAL IVPB ONE ×2 (01:32→08:40)
[2021-06-03] MEDS ORDERED: DEXTROSE 5%-WATER - 50 ML IVPB ONE ×2 (01:33→08:41)
[2021-06-03] MEDS: PIPERACILLIN/TAZOB 2.25 GM 2.25 GM in DEXTROSE 5%-WATER - 50 ML IVPB SCH ×2 (01:42→09:37)
[2021-06-03] MEDS: POTASSIUM CHLORIDE 10 MEQ in DEXTROSE 5%-WATER - 1,000 ML IV SCH (06:00)
[2021-06-03 07:41] LABS: HEMATOCRIT 26.9 % (35.4-49); HEMOGLOBIN 8.6 GM/dL (11.7-16.9); MCH 29.5 pg (25.7-33.7); MCHC 31.8 g/dl (32.0-35.9); MEAN CELL VOLUME 92.8 fl (80-96); MEAN PLT VOLUME 7.5 fl (7.5-11.1); PLATELET COUNT 213 10^3/uL (134-434); RDW 16.3 % (11.9-15.9); WHITE BLOOD COUNT 8.6 K/mm3 (4.0-10.0)
[2021-06-03 07:55] LABS: CHLORIDE 137 mmol/L (98-107)
[2021-06-03 07:57] LABS: CALCIUM 8.4 mg/dL (8.5-10.1)
[2021-06-03 07:58] LABS: ALBUMIN 1.7 g/dl (3.4-5.0); BLOOD UREA NITROGEN 73.6 mg/dL (7-18); CO2 20 mmol/L (21-32); GLUCOSE,RANDOM 174 mg/dL (74-106); MAGNESIUM 1.6 mg/dL (1.8-2.4)
[2021-06-03 08:00] LABS: SGPT/ALT < 6 U/L (13-61)
[2021-06-03 08:01] LABS: CREATININE 1.8 mg/dL (0.55-1.3); PHOSPHOROUS 2.3 mg/dL (2.5-4.9); SGOT/AST 12 U/L (15-37)
[2021-06-03 08:02] LABS: BILIRUBIN,TOTAL 0.5 mg/dL (0.2-1); TOT PROT 5.1 g/dl (6.4-8.2)
[2021-06-03 08:03] LABS: ALK PHOS 96 U/L (45-117); ANION GAP 7 MMOL/L (8-16); SODIUM 163 mmol/L (136-145)
[2021-06-03 09:22] LABS: ANISOCYTOSIS 0; HELMET CELLS 0; HOWELL-JOLLY BODIES 0; MACROCYTOSIS 0; OVALOCYTE 0; ROULEAU 0; SICKELED CELLS 0; TARGET CELLS 0; TEAR DROP CELLS 0; TOXIC GRANULATION 0
[2021-06-03] MEDS ORDERED: POTASSIUM CHLORIDE ORAL LIQUID 20 MEQ/15 ML PO ONE (09:45)
[2021-06-03] MEDS: KCL 10 MEQ IVPB 10 MEQ/100 ML INFUS.BAG IVPB SCH ×3 (10:14→13:46)
[2021-06-03] MEDS: METOPROLOL TARTRATE 25 MG TABLET (FP) PO SCH ×2 (10:15→21:42)
[2021-06-03] MEDS: POTASSIUM CHLORIDE 40 MEQ in DEXTROSE 5%-WATER - 1,000 ML IV SCH ×2 (11:00→21:42)
[2021-06-03] MEDS: ENOXAPARIN NA (PORCINE) 120 MG/0.8 ML DISP.SYRIN SQ SCH (15:10)
[2021-06-03] MEDS ORDERED: MAGNESIUM SULF 50% (8.12 MEQ/2 ML-1 GM VIAL) IVPB ONE (15:19)
[2021-06-03] MEDS ORDERED: MAGNESIUM OXIDE 400 MG TABLET (FP) PO ONE (15:19)
[2021-06-03] MEDS: NAPH,MB-DB/K PH,MBDB POWDER PACKET PO SCH ×2 (15:53→21:42)
[2021-06-03] MEDS: AMOX TR/POT CLAV 500MG/125MG TABLETS (FP) PO SCH (17:07)
[2021-06-03 22:44] VITALS: BMI 44.2
[2021-06-04 07:36] LABS: CHLORIDE 135 mmol/L (98-107)
[2021-06-04 07:44] LABS: BLOOD UREA NITROGEN 53.8 mg/dL (7-18); CALCIUM 8.9 mg/dL (8.5-10.1); CO2 21 mmol/L (21-32); GLUCOSE,RANDOM 143 mg/dL (74-106); MAGNESIUM 2.1 mg/dL (1.8-2.4)
[2021-06-04 07:45] LABS: ALBUMIN 1.9 g/dl (3.4-5.0)
[2021-06-04 07:47] LABS: SGPT/ALT < 6 U/L (13-61)
[2021-06-04 07:48] LABS: CREATININE 1.2 mg/dL (0.55-1.3); PHOSPHOROUS 1.7 mg/dL (2.5-4.9)
[2021-06-04 07:49] LABS: BILIRUBIN,TOTAL 0.6 mg/dL (0.2-1); SGOT/AST 18 U/L (15-37); TOT PROT 5.6 g/dl (6.4-8.2)
[2021-06-04 07:51] LABS: ALK PHOS 108 U/L (45-117)
[2021-06-04 07:58] LABS: ANION GAP 7 MMOL/L (8-16); SODIUM 162 mmol/L (136-145)
[2021-06-04] MEDS: AMOX TR/POT CLAV 500MG/125MG TABLETS (FP) PO SCH ×2 (08:06→18:53)
[2021-06-04] MEDS ORDERED: MULTIVIT INJ. ADULT COMBO WITH VIT K 1 COMBO 10 ML VIAL IV SCH (10:00)
[2021-06-04] MEDS: METOPROLOL TARTRATE 25 MG TABLET (FP) PO SCH ×2 (10:33→21:22)
[2021-06-04] MEDS: POTASSIUM CHLORIDE 40 MEQ in DEXTROSE 5%-WATER - 1,000 ML IV SCH ×2 (10:33→21:21)
[2021-06-04] MEDS: NAPH,MB-DB/K PH,MBDB POWDER PACKET PO SCH ×2 (10:33→21:22)
[2021-06-04] MEDS ORDERED: POTASSIUM PHOSPHATE 30 MM in DEXTROSE 5%-WATER - 500 ML IVPB ONE (11:30)
[2021-06-04] MEDS: MULTIVIT-MINERALS ORAL LIQUID PO SCH (14:17)
[2021-06-04] MEDS: ENOXAPARIN NA (PORCINE) 120 MG/0.8 ML DISP.SYRIN SQ SCH (15:32)
[2021-06-05] MEDS: METOPROLOL TARTRATE 25 MG TABLET (FP) PO SCH ×2 (09:03→22:44)
[2021-06-05] MEDS: AMOX TR/POT CLAV 500MG/125MG TABLETS (FP) PO SCH ×2 (09:03→17:44)
[2021-06-05] MEDS: NAPH,MB-DB/K PH,MBDB POWDER PACKET PO SCH ×2 (09:04→22:43)
[2021-06-05] MEDS: MULTIVIT-MINERALS ORAL LIQUID PO SCH (09:04)
[2021-06-05] MEDS: POTASSIUM CHLORIDE 40 MEQ in DEXTROSE 5%-WATER - 1,000 ML IV SCH ×2 (09:23→11:29)
[2021-06-05 11:56] LABS: MAGNESIUM 1.9 mg/dL (1.8-2.4)
[2021-06-05 12:00] LABS: CREATININE 1.8 mg/dL (0.55-1.3)
[2021-06-05] MEDS ORDERED: DEXTROSE 5%-WATER - 1,000 ML IV SCH (13:58)
[2021-06-05] MEDS: DEXTROSE 5%-WATER - 1,000 ML IV SCH (15:41)
[2021-06-05] MEDS: APIXABAN 5 MG TABLET PO SCH (22:44)
[2021-06-06] MEDS: DEXTROSE 5%-WATER - 1,000 ML IV SCH (02:00)
[2021-06-06] MEDS: MULTIVIT-MINERALS ORAL LIQUID PO SCH (10:03)
[2021-06-06] MEDS: NAPH,MB-DB/K PH,MBDB POWDER PACKET PO SCH ×2 (10:04→21:35)
[2021-06-06] MEDS: APIXABAN 5 MG TABLET PO SCH ×2 (10:04→21:34)
[2021-06-06] MEDS: METOPROLOL TARTRATE 25 MG TABLET (FP) PO SCH ×2 (10:04→21:35)
[2021-06-06] MEDS: AMOX TR/POT CLAV 500MG/125MG TABLETS (FP) PO SCH ×2 (10:04→18:00)
[2021-06-06 13:53] LABS: BLOOD UREA NITROGEN 51.5 mg/dL (7-18); CALCIUM 7.9 mg/dL (8.5-10.1)
[2021-06-06 13:56] LABS: CREATININE 1.8 mg/dL (0.55-1.3)
[2021-06-06] MEDS: POTASSIUM CHLORIDE 10 MEQ in DEXTROSE 5%-WATER - 1,000 ML IV SCH (21:34)
[2021-06-07] MEDS: APIXABAN 5 MG TABLET PO SCH ×2 (09:35→21:55)
[2021-06-07] MEDS: METOPROLOL TARTRATE 25 MG TABLET (FP) PO SCH ×2 (09:36→21:55)
[2021-06-07] MEDS: AMOX TR/POT CLAV 500MG/125MG TABLETS (FP) PO SCH ×2 (09:37→17:50)
[2021-06-07] MEDS: MULTIVIT-MINERALS ORAL LIQUID PO SCH (09:38)
[2021-06-07] MEDS: NAPH,MB-DB/K PH,MBDB POWDER PACKET PO SCH ×2 (09:39→21:56)
[2021-06-07] MEDS: POTASSIUM CHLORIDE 10 MEQ in DEXTROSE 5%-WATER - 1,000 ML IV SCH ×4 (10:29→21:55)
[2021-06-07] MEDS ORDERED: TAMSULOSIN HCL 0.4 MG CAP PO ONE (12:45)
[2021-06-07 13:07] LABS: HEMATOCRIT 25.8 % (35.4-49); MCH 28.7 pg (25.7-33.7); MCHC 31.1 g/dl (32.0-35.9); MEAN CELL VOLUME 92.2 fl (80-96); MEAN PLT VOLUME 7.9 fl (7.5-11.1); PLATELET COUNT 231 10^3/uL (134-434); RDW 16.2 % (11.9-15.9); WHITE BLOOD COUNT 11.9 K/mm3 (4.0-10.0)
[2021-06-07 13:29] LABS: ALBUMIN 1.7 g/dl (3.4-5.0); BLOOD UREA NITROGEN 41.2 mg/dL (7-18)
[2021-06-07 13:32] LABS: CREATININE 1.2 mg/dL (0.55-1.3)
[2021-06-07 13:35] LABS: BILIRUBIN,TOTAL 0.4 mg/dL (0.2-1); TOT PROT 5.1 g/dl (6.4-8.2)
[2021-06-07 14:32] LABS: ANISOCYTOSIS 2+; MACROCYTOSIS 0; TEAR DROP CELLS 1+
[2021-06-07] MEDS: BACITRACIN 15 GM TUBE TOPICAL OINTMENT TP SCH (15:11)
[2021-06-08] MEDS: POTASSIUM CHLORIDE 10 MEQ in DEXTROSE 5%-WATER - 1,000 ML IV SCH ×4 (02:47→17:54)
[2021-06-08 07:40] LABS: CALCIUM 7.3 mg/dL (8.5-10.1)
[2021-06-08 07:42] LABS: BLOOD UREA NITROGEN 31.7 mg/dL (7-18); MAGNESIUM 1.2 mg/dL (1.8-2.4)
[2021-06-08 07:44] LABS: PHOSPHOROUS 3.2 mg/dL (2.5-4.9)
[2021-06-08] MEDS: METOPROLOL TARTRATE 25 MG TABLET (FP) PO SCH ×2 (09:59→22:08)
[2021-06-08] MEDS: AMOX TR/POT CLAV 500MG/125MG TABLETS (FP) PO SCH ×2 (09:59→16:44)
[2021-06-08] MEDS: APIXABAN 5 MG TABLET PO SCH ×2 (09:59→21:55)
[2021-06-08] MEDS: MULTIVIT-MINERALS ORAL LIQUID PO SCH (10:00)
[2021-06-08] MEDS: NAPH,MB-DB/K PH,MBDB POWDER PACKET PO SCH ×2 (10:02→21:55)
[2021-06-08] MEDS: BACITRACIN 15 GM TUBE TOPICAL OINTMENT TP SCH (10:02)
[2021-06-08] MEDS ORDERED: POTASSIUM CHLORIDE TABS 20 MEQ TABLET.ER (FP) PO ONE ×2 (13:00→16:45)
[2021-06-08] MEDS ORDERED: MAGNESIUM 2GM/50ML STERILE WATER IVPB IVPB ONE ×2 (13:00→16:45)
[2021-06-09] MEDS: POTASSIUM CHLORIDE 10 MEQ in DEXTROSE 5%-WATER - 1,000 ML IV SCH ×3 (05:54→22:15)
[2021-06-09 07:56] LABS: CALCIUM 7.9 mg/dL (8.5-10.1)
[2021-06-09 07:57] LABS: BLOOD UREA NITROGEN 28.1 mg/dL (7-18); MAGNESIUM 1.6 mg/dL (1.8-2.4)
[2021-06-09 08:00] LABS: CREATININE 0.9 mg/dL (0.55-1.3)
[2021-06-09] MEDS: METOPROLOL TARTRATE 25 MG TABLET (FP) PO SCH ×2 (10:07→22:47)
[2021-06-09] MEDS: AMOX TR/POT CLAV 500MG/125MG TABLETS (FP) PO SCH (10:07)
[2021-06-09] MEDS: APIXABAN 5 MG TABLET PO SCH ×2 (10:07→22:10)
[2021-06-09] MEDS: MULTIVIT-MINERALS ORAL LIQUID PO SCH (10:08)
[2021-06-09] MEDS: BACITRACIN 15 GM TUBE TOPICAL OINTMENT TP SCH (10:09)
[2021-06-09] MEDS: NAPH,MB-DB/K PH,MBDB POWDER PACKET PO SCH ×2 (10:18→22:10)
[2021-06-09] MEDS ORDERED: LOPERAMIDE HCL 2 MG CAPSULE PO ONE (11:00)
[2021-06-09] MEDS ORDERED: MAGNESIUM 2GM/50ML STERILE WATER IVPB IVPB ONE (11:00)
[2021-06-09 11:25] LABS: N-TERMINAL BNP 743.6 pg/ml (5-450)
[2021-06-09] MEDS: MIDODRINE HCL 2.5 MG TABLET PO PRN ×2 (13:27→22:23)
[2021-06-09] MEDS: KCL 10 MEQ IVPB 10 MEQ/100 ML INFUS.BAG IVPB SCH ×3 (14:16→18:53)
[2021-06-09] MEDS ORDERED: KCL 10 MEQ IVPB 10 MEQ/100 ML INFUS.BAG IVPB SCH (18:45)
[2021-06-10] MEDS: POTASSIUM CHLORIDE 10 MEQ in DEXTROSE 5%-WATER - 1,000 ML IV SCH ×2 (01:11→09:31)
[2021-06-10] MEDS: MIDODRINE HCL 2.5 MG TABLET PO PRN ×2 (06:16→17:28)
[2021-06-10 08:24] LABS: HEMATOCRIT 25.1 % (35.4-49); MCH 29.1 pg (25.7-33.7); MCHC 31.9 g/dl (32.0-35.9); MEAN CELL VOLUME 91.2 fl (80-96); MEAN PLT VOLUME 7.4 fl (7.5-11.1); PLATELET COUNT 285 10^3/uL (134-434); RBC 2.75 M/mm3 (4.00-5.60); RDW 15.7 % (11.9-15.9); WHITE BLOOD COUNT 11.5 K/mm3 (4.0-10.0)
[2021-06-10 08:39] LABS: CALCIUM 7.2 mg/dL (8.5-10.1)
[2021-06-10 08:40] LABS: ALBUMIN 1.6 g/dl (3.4-5.0); BLOOD UREA NITROGEN 20.4 mg/dL (7-18); MAGNESIUM 1.8 mg/dL (1.8-2.4)
[2021-06-10 08:43] LABS: CREATININE 0.7 mg/dL (0.55-1.3)
[2021-06-10 08:45] LABS: BILIRUBIN,TOTAL 0.5 mg/dL (0.2-1)
[2021-06-10] MEDS: APIXABAN 5 MG TABLET PO SCH ×2 (09:27→21:49)
[2021-06-10] MEDS: MULTIVIT-MINERALS ORAL LIQUID PO SCH (09:27)
[2021-06-10] MEDS: NAPH,MB-DB/K PH,MBDB POWDER PACKET PO SCH ×2 (09:28→21:49)
[2021-06-10] MEDS: BACITRACIN 15 GM TUBE TOPICAL OINTMENT TP SCH (09:29)
[2021-06-10] MEDS: METOPROLOL TARTRATE 25 MG TABLET (FP) PO SCH ×2 (09:29→22:13)
[2021-06-10] MEDS ORDERED: POTASSIUM CHLORIDE ORAL LIQUID 20 MEQ/15 ML PO ONE (09:41)
[2021-06-10 10:34] LABS: ANISOCYTOSIS 2+; MACROCYTOSIS 0
[2021-06-10 10:44] LABS: PLATELET ESTIMATE ADEQUATE
[2021-06-10] MEDS ORDERED: MAGNESIUM OXIDE 400 MG TABLET (FP) PO ONE (11:26)
[2021-06-10] MEDS: POTASSIUM CHLORIDE 40 MEQ in AMINO ACIDS 4.25%/D5W 1,000 ML IV SCH (15:22)
[2021-06-11] MEDS: POTASSIUM CHLORIDE 40 MEQ in AMINO ACIDS 4.25%/D5W 1,000 ML IV SCH ×2 (08:04→08:47)
[2021-06-11 08:20] LABS: CALCIUM 7.6 mg/dL (8.5-10.1)
[2021-06-11 08:21] LABS: MAGNESIUM 1.6 mg/dL (1.8-2.4)
[2021-06-11 08:24] LABS: CREATININE 0.6 mg/dL (0.55-1.3)
[2021-06-11] MEDS: NAPH,MB-DB/K PH,MBDB POWDER PACKET PO SCH ×2 (09:17→21:37)
[2021-06-11] MEDS: MULTIVIT-MINERALS ORAL LIQUID PO SCH (09:18)
[2021-06-11] MEDS: APIXABAN 5 MG TABLET PO SCH ×2 (09:18→21:36)
[2021-06-11] MEDS: BACITRACIN 15 GM TUBE TOPICAL OINTMENT TP SCH (09:18)
[2021-06-11] MEDS: METOPROLOL TARTRATE 25 MG TABLET (FP) PO SCH ×2 (09:23→21:37)
[2021-06-11 11:07] LABS: SARS-CoV-2 NAA Not Detected (Not Detected)
[2021-06-11] MEDS: D5-1/2NS+40 MEQ KCL - 40 MEQ/1,000 ML INFUS.BAG IV SCH (15:00)
[2021-06-12] MEDS: APIXABAN 5 MG TABLET PO SCH (11:20)
[2021-06-12] MEDS: METOPROLOL TARTRATE 25 MG TABLET (FP) PO SCH (11:21)
[2021-06-12] MEDS: BACITRACIN 15 GM TUBE TOPICAL OINTMENT TP SCH (11:21)
[2021-06-12] MEDS: D5-1/2NS+40 MEQ KCL - 40 MEQ/1,000 ML INFUS.BAG IV SCH (11:21)
[2021-06-12] MEDS: MULTIVIT-MINERALS ORAL LIQUID PO SCH (11:21)
[2021-06-12] MEDS: NAPH,MB-DB/K PH,MBDB POWDER PACKET PO SCH (11:21)
[2021-06-12] MEDS: MIDODRINE HCL 2.5 MG TABLET PO PRN (11:22)
[2021-06-12 12:09] VITALS: BP 97/63; PULSE 104; TEMP 97.3
== END 2021-06-12 16:05 | DRG 871 ==
LOC: JER 11:16 → JERBED 13:12 → J4W 05-31 02:21
PROVIDERS: ADMIT Internal Medicine; ATTEND Internal Medicine
DX: A41.9 Sepsis, unspecified organism (principal); G92.9 Unspecified toxic encephalopathy; R65.21 Severe sepsis with septic shock; C24.0 Malignant neoplasm of extrahepatic bile duct; N39.0 Urinary tract infection, site not specified; N17.9 Acute kidney failure, unspecified; I82.412 Acute embolism and thrombosis of left femoral vein; E87.0 Hyperosmolality and hypernatremia; E11.9 Type 2 diabetes mellitus without complications; J44.9 Chronic obstructive pulmonary disease, unspecified; I10 Essential (primary) hypertension; Z68.37 Body mass index [BMI] 37.0-37.9, adult; E66.01 Morbid (severe) obesity due to excess calories; K21.9 Gastro-esophageal reflux disease without esophagitis; E78.5 Hyperlipidemia, unspecified; R31.0 Gross hematuria; I95.9 Hypotension, unspecified; E87.5 Hyperkalemia; D72.829 Elevated white blood cell count, unspecified; N40.0 Benign prostatic hyperplasia without lower urinary tract symptoms; E86.0 Dehydration
CPT/HCPCS: 36415; 71045-TC-FY; 80048; 80053; 81003; 82550; 82803; 82962; 83605; 83735; 83880; 84100; 84153; 84484; 85025; 85027; 86850; 86900; 86901; 87040; 87086; 93005; 93010; 93306-TC; 93970-TC; 97162-GP; 99291; C9803; U0003; U0005